=== PATIENT | female | born 1940 | race Caucasian/White ===

== ENCOUNTER 2016-12-25 10:04 | Inpatient (IN) | payer MEDICARE, OTHER ==
[2016-12-25] VITALS (8 sets, daily range): BP systolic 112–139; BP diastolic 56–74; PULSE 92–139; RESP 20–24; O2SAT 92–100
[~2016-12-25] VITALS: Ht 170.2 cm; Wt 57.2 kg
[2016-12-25] MEDS ORDERED: 0.9% Sodium Chloride 1,000 ML IV ONE ×2 (10:56→14:40)
--- NOTE | 2016-12-25 10:56 | ED.REPORT ---
HPI-General Illness Date of Service Dec 25, 2016 ED Provider: Brii Asencio MD 76 year old demented female with a history of type II diabetes and HTN presents to the ER accompanied by her complaining of six weeks of nausea and vomiting, with . She also reports 20 lb weight loss since symptom onset. Six weeks ago she was experiencing back problems related to a previous fall. At that time she was prescribed hydrocodone that elicited nausea and vomiting that has persisted even after ceasing this medication. In follow-up she was diagnosed with H pylori, and started on an antibiotic regimen. Today she began experiencing dizziness upon awakening. Patient denies SOB, and chest pain currently, though her reports that she awakens in the night complaining of epigastric pain. She is scheduled for an appointment with a GI specialist 3 days from now. Nursing Notes Stated Complaint: VOMITING/POSS REACTION TO MEDICATION Chief Complaint: General Complaint Nursing Notes Reviewed: Yes Allergies: Coded Allergies: Penicillins (Verified Allergy, Unknown, 12/25/16) Sulfa (Sulfonamide Antibiotics) (Verified Allergy, Unknown, 12/25/16) cefaclor (Verified Allergy, Unknown, 12/25/16) codeine (Verified Allergy, Unknown, 12/25/16) metronidazole (Verified Allergy, Unknown, 12/25/16) omeprazole (Verified Allergy, Unknown, 12/25/16) hydrocodone (Verified Adverse Reaction, Unknown, nausea, 12/25/16) Scheduled Aspirin Chew (Aspirin Chew) 81 Mg Chew 81 MG PO DAILY Levothyroxine (Levothyroxine) 50 Mcg Tablet 50 MCG PO DAILY Lisinopril (Lisinopril) 2.5 Mg Tablet 2.5 MG PO DAILY Pantoprazole DR (Pantoprazole DR) 40 Mg Tablet.dr 40 MG PO BID Ranitidine (Ranitidine) 150 Mg Capsule 150 MG PO HS Rivastigmine Patch (Exelon Patch) 4.6 Mg Patch 4.6 MG TRANSDERM DAILY Scheduled PRN Acetaminophen (Acetaminophen) 500 Mg Tablet 500-1,000 MG PO Q6H PRN PRN For Pain Tramadol (Tramadol) 50 Mg Tablet 50 MG PO Q6H PRN PRN For Pain General Time Seen by MD: 10:54 Chief Complaint Vomiting Hx Obtained From: Patient Arrived By: Walk-in Sudden in Onset?: No Onset Occurred: More than a week ago... (6 weeks) Symptom Duration: Since onset Associated with: Reports: Abdominal pain, Dizziness, Denies: Chest pain, Shortness of breath Past Medical History Past Medical History Reports: Diabetes mellitus (type 2), Hypertension Reports: Dementia, Thyroid disease Smoking History Unknown if Ever Smoker Social History Other Social History: Good social support, Ambulatory Status Independent Review of Systems Full Review of Systems Constitutional: Reports: Recent wt loss (20 lbs), Denies: Chills, Fever Respiratory: Denies: Non-productive cough, Shortness of breath Cardiovascular: Denies: Chest pain GI: Reports: Abdominal pain, Nausea, Vomiting, Denies: Diarrhea Neurologic: Reports: Dizziness Complete sys rev & neg: except as marked. Physical Exam Vital Signs Vital Signs Date Time Temp Pulse Resp B/P Pulse Ox O2 Delivery O2 Flow Rate FiO2 12/25/16 12:37 111 21 134/57 93 Room Air 12/25/16 10:28 36.6 139 24 130/74 100 Room Air Initial VS: Reviewed Head / Eyes: Atraumatic, Normocephalic Neck: Supple, Non-tender, Full range of motion Extremities: Vascular intact, Neuro intact, No swelling, No tenderness Skin: Warm, Dry, No cyanosis Neurologic: Alert, Oriented, Nonfocal General/Constitutional: Awake, Alert, Well developed, Well nourished Respiratory / Chest: Breath sounds NL, No respiratory distress, No rales, No rhonchi, No wheezing Cardiovascular: Regular rhythm, Heart sounds NL, Cap refill not delayed, Peripheral circulation NL Heart Rate / Rhythm: Positive: Tachycardia Abdomen: Soft, Non-tender, No guarding, No rebound, BS normoactive, No distention Interpretation & Diagnostics Lab Results Interpretation Result Diagram: 12/25/16 1102 12/25/16 1102 Test 12/25/16 11:02 12/25/16 11:05 White Blood Count 14.6th/mm3 (3.8-10.1) Red Blood Count 4.74mil/mm3 (3.90-5.20) Hemoglobin 15.2g/dL (12.0-15.6) Hematocrit 41.8% (35.0-46.0) Mean Corpuscular Volume 88.2fL (81-100) Mean Corpuscular Hemoglobin 32.1pg (27.0-35.0) Mean Corpuscular Hemoglobin Concent 36.4% (32.0-37.0) Red Cell Distribution Width 13.7% (12.3-15.4) Platelet Count 326bil/L (150-400) Neutrophils (%) (Auto) 86.8% (40-74) Lymphocytes (%) (Auto) 4.6% (14-46) Monocytes (%) (Auto) 8.1% (4-12) Eosinophils (%) (Auto) 0% (0-5) Basophils (%) (Auto) 0.2% (0-3) Sodium Level 123mEq/L (134-144) Potassium Level 2.2mEq/L (3.5-5.2) Chloride Level 66mEq/L (97-108) Carbon Dioxide Level 33mmol/L (18-29) Blood Urea Nitrogen 23mg/dL (8-27) Creatinine 0.77mg/dL (0.57-1.00) Estimat Glomerular Filtration Rate 104mL/min (>59) Glucose Level 159mg/dL (60-99) Calcium Level 10.0mg/dL (8.5-10.1) Magnesium Level 2.4mg/dL (1.6-2.6) Total Bilirubin 1.1mg/dL (0.0-1.2) Aspartate Amino Transf (AST/SGOT) 19U/L (0-50) Alanine Aminotransferase (ALT/SGPT) 20U/L (0-32) Alkaline Phosphatase 50U/L (25-165) Troponin T < 0.010ug/L (0.0-0.011) Total Protein 7.6g/dL (6.4-8.4) Albumin 4.9g/dL (3.4-5.0) Lipase 76U/L (13-60) Thyroid Stimulating Hormone (TSH) 2.540uIU/mL (0.450-4.500) Hold Lares Top Tube Received (Received) ECG Interpretation ECG Interpretation: Sinus tachycardia, rate 95 No significant ischemia Time: 11:32 Interpreted by: ED physician CT Abd / Pelvis Interpretation DATE: 11/08/2016 IMPRESSION: 1. Hepatic steatosis and hepatic cyst 2. Mild sigmoid diverticulosis 3. No acute changes 4. Results discussed with SONAM Ortega Study type: Abdominal CT IV contrast Interpretation / Wet Read by: Interpret - Radiologist Re-Eval/Medical Decision Med Decision/Clinical Course 76-year-old woman presents with 6 weeks of persistent vomiting apparently has lost 20 pounds. Was seen by her primary care doctor [address] scan was done of the abdomen that did not show any significant pathology at that point. She does not describe fevers or chills. She her abdomen is tender from vomiting only she does not have any urinary symptoms or is absolutely no suggestive that there is an infectious etiology to explain her symptoms. I do not believe that this is sepsis or SIRS. Labs show significant contraction alkalosis with severe hyponatremia and hypokalemia. She will be admitted with telemetry, potassium replacement and fluids. Further etiology for the persistent vomiting is still to be elucidated. Source of Hx: Old records Time of Eval: 14:23 Re-Evaluation/Progress Note: Discussed lab results and need for admission. Patient is amenable to the plan. Return precautions given. All other questions addressed. Consultation #1: Referral / Consult Name: Drew Hummel MD Consulted With: Hospitalist Call Returned at: 13:37 Decision Unit Rn: Agrees with eval, Agrees with plan, Accepts admit Consultation #2: Referral / Consult Name: Aria Powell MD Consulted With: On-call physician (GI) Call Returned at: 14:35 Note: Agrees to consult. Counseled Regarding: Diagnosis, Lab results, Need for admission Discharge & Departure Primary Impression: Nausea & vomiting Additional Impression: Dementia Disposition: ADMITTED TO HOSPITAL Discharge Condition All VS Reviewed: Yes Condition: Stable Referrals: Yaya Chavarria MD (PCP) Scribe Attestation Portions of this note were transcribed by Moi Liz. I, Dr. Asencio, personally performed the history, physical exam and medical decision-making; I reviewed and confirmed the accuracy of the information in the transcribed note. Signed by: Brennan Giron, 12/25/2016 at 14:36 copies to: Yaya Chavarria MD, Shawna L MD Dec 25, 2016 10:56 MOI LIZ Dec 25, 2016 10:59
[2016-12-25] MEDS ORDERED: Ondansetron 2 mg/mL 2 mL Inj IVPUSH ONE (11:00)
[2016-12-25 11:14] LABS: BASOPHILS % (AUTO) 0.2 % (0-3); EOSINOPHILS % (AUTO) 0 % (0-5); MONOCYTES % (AUTO) 8.1 % (4-12); Mean Corpuscular Hemoglobin 32.1 pg (27.0-35.0); Mean Corpuscular Volume 88.2 fL (81-100); NEUTROPHILS % (AUTO) 86.8 % (40-74); Platelet Count 326 bil/L (150-400)
[2016-12-25 11:33] LABS: Magnesium 2.4 mg/dL (1.6-2.6)
[2016-12-25 12:19] LABS: TROPONIN T < 0.010 ug/L (0.0-0.011)
[2016-12-25] MEDS ORDERED: KCl 40 mEq/D5W 500 mL 40 MEQ in IV Premix 1 EACH IV ONE ×2 (12:25→23:15)
[2016-12-25] MEDS ORDERED: Magnesium Sulf 4 Gm/100 mL H2O 4 GM in IV Premix 1 EACH IV ONE (13:45)
[2016-12-25] MEDS ORDERED: Ondansetron 2 mg/mL 2 mL Inj IVPUSH PRN (13:45)
[2016-12-25] MEDS ORDERED: Polyethylene Glycol (PEG) 17 Gm Powder PO PRN (13:45)
[2016-12-25] MEDS ORDERED: Alum-Mag Hydrox-Simeth 30 mL Suspension PO PRN (13:45)
[2016-12-25] MEDS ORDERED: TRAM50TA2 PO (14:41)
[2016-12-25] MEDS ORDERED: ASPI81TA3 PO (14:41)
[2016-12-25] MEDS ORDERED: LEVO50TA6 PO (14:41)
[2016-12-25] MEDS ORDERED: PANT40TA3 PO (14:41)
[2016-12-25] MEDS ORDERED: LISI2.5T PO (14:41)
[2016-12-25] MEDS ORDERED: SUCR1TAB PO (14:41)
[2016-12-25] MEDS ORDERED: RANI150C4 PO (14:41)
[2016-12-25] MEDS ORDERED: ACET-171 PO (14:41)
[2016-12-25] MEDS ORDERED: RIVA1PAT TRANSDERM (14:41)
[2016-12-25] MEDS: 0.9% Sodium Chloride 1,000 ML IV SCH ×2 (15:44→21:16)
--- NOTE | 2016-12-25 16:20 | PCM.HPMED ---
Subjective Date of Service Dec 25, 2016 Primary Provider: Admitting Physician: Drew Hummel MD Primary Care Physician: Yaya Chavarria MD Attending Physician: Drew Hummel MD Admit Status: From the Emergency Department, Admit to [facility] Team Chief Complaint: 76-year-old woman with a history of dementia and recent abdominal complaints presents with vomiting and disordered electrolytes History of Present Illness: The patient is alert and talkative but has moderate dementia and is unable to provide history. She was unable to identify a reason for coming to hospital today. Per emergency department history obtained from her , she has had severe nausea and vomiting over the past month. Today she experienced dizziness and was brought to hospital for evaluation. She was noted to have critical hypokalemia as well as severe hyponatremia, metabolic alkalosis and leukocytosis. Recent medical records indicates that she has had abdominal pain nausea and vomiting since late 10/2016. She also had fall with increased back pain treated initially with opioid analgesics during this time. Serum IgA antibody for H. pylori was positive at 10.0 (0-8.9). Unclear if there are any other studies performed but she initiated pantoprazole, doxycycline, metronidazole and bismuth. A GI consult was requested but is scheduled for several days from now. Review of Systems: Review of systems was attempted but her answers were vague and nonspecific. She denies pain or nausea at this time. Allergies Coded Allergies: Penicillins (Verified Allergy, Unknown, 12/25/16) Sulfa (Sulfonamide Antibiotics) (Verified Allergy, Unknown, 12/25/16) cefaclor (Verified Allergy, Unknown, 12/25/16) codeine (Verified Allergy, Unknown, 12/25/16) metronidazole (Verified Allergy, Unknown, 12/25/16) omeprazole (Verified Allergy, Unknown, 12/25/16) hydrocodone (Verified Adverse Reaction, Unknown, nausea, 12/25/16) Home Medications Per nurse's medication reconciliation: Acetaminophen, aspirin 81 mg, levothyroxine 50 g, lisinopril 2.5 mg, pantoprazole 40 mg twice a day, ranitidine 150 mg at bedtime Right astigmatism patch Tramadol 2 mg 4 times a day when necessary Primary care provider visit 4 days ago: Additional medications: Bismuth Doxycycline Metronidazole [facility] # Dementia # Hypothyroidism # Dyspepsia - H. pylori serologic positive; CT abdomen done 11/08/16 at [facility] reportedly with no pathology. # low vitamin D # hypertension Social History Hx Alcohol Use: Yes (Beer every day for dinner) Hx Substance Use: No Hx Tobacco Use: No Smoking Status: Unknown if Ever Smoker Living Arrangement: with Family () Exam Vital Signs Vital Sign - Last Date Time Temp Pulse Resp B/P Pulse Ox O2 Delivery O2 Flow Rate FiO2 12/25/16 15:52 113 12/25/16 15:27 37.1 24 112/64 95 Room Air Exam General: Healthy-appearing elderly woman in no acute distress HEENT: Mild proptosis, sclerae anicteric, oral mucosa moist Neck: no JVD Chest: Lungs clear to auscultation Cardiac: S1S2, no murmur, no gallop Abdomen: BS normal, non-tender, no HSM Extremities: No pitting edema Neuro: Alert and talkative but limited cognitive content, cranial nerves symmetric, motor strength 5/5, coordination normal finger to nose, reflexes 2+ right 3+ left, toes downgoing Lab and Diagnostics Labs Liver function tests normal, lipase 76 Troponin less than 0.01 TSH normal Result Diagram: 12/25/16 1102 12/25/16 1102 12-lead ECG 12/25/16 at 11:25 from multi focal atrial rhythm, [address] depressions V3-5, conduction intervals normal Assessment & Plan 76-year-old woman with dementia presents with several weeks of dyspepsia nausea and vomiting, with acutely worsened dizziness and electrolyte disorders. # Hypokalemia, acute. Present on admission. Severe, associated with atrial dysrhythmia. Likely secondary to contraction alkalosis. - Telemetry monitoring - BMP every 4 hours with IV potassium supplementation - IV normal saline # Hyponatremia, acute. Present on admission. Secondary to nausea and vomiting. - IV normal saline, adjust rate for patient's of sodium correction - Repeat BMP every 4 hours with maximum correction 8-10 mg/L over 24 hours. # Metabolic alkalosis, acute. - Fluid resuscitation # SIRS criteria, present on admission. Leukocytosis WBC 14.6; heart rate 139. No obvious source of infection. Possibly stress reaction. Heart rate may be secondary to atrial dysrhythmia from hypokalemia. Blood pressure is stable, antibiotics not indicated at present - Chest x-ray - Urinalysis # Dyspepsia, nausea and vomiting, chronic. Differential diagnosis is per GI versus medication intolerance (doxycycline, rivastigmine). Very minor lipase elevation seems clinically unimportant. - Antiemetics - Clear liquid diet advance as tolerated - Review [facility] from [facility] and consider further imaging is needed # Hyperglycemia, acute. No history of type II diabetes mellitus. - Check hemoglobin A1c CODE STATUS: Patient is not decisional and no family are present at this time. Venous thromboembolism prophylaxis with Lovenox Disposition: Patient is admitted with expectation of greater than 2 nights of inpatient therapy due to severe electrolyte derangement due to uncontrolled nausea and vomiting. GI Prophylaxis: Proton Pump Inhibitor VTE Prophylaxis: Sub-Q Enoxaparin Resuscitation Status: CPR: Attempt Resuscitation Time spent 60 minutes copies to: Yaya Chavarria MD, Jeffrey W MD Dec 25, 2016 16:20
[2016-12-25 16:35] LABS: APPEARANCE,URINE HAZY (CLEAR,HAZY); COLOR,URINE YELLOW (YELLOW); OCCULT BLOOD,URINE NEGATIVE (NEGATIVE)
[2016-12-25 16:37] LABS: UROBILINOGEN,URINE NORMAL (NORMAL)
[2016-12-25] MEDS: Pantoprazole 4 mg/mL 10 mL Inj IVPUSH SCH (17:33)
--- NOTE | 2016-12-25 19:46 | DRSVH ---
PROCEDURE: X-RAY CHEST ONE VIEW, PORTABLE ([id number]) INDICATIONS: SIRS positive TECHNIQUE: One view of the chest was acquired. COMPARISON: None. FINDINGS: Surgical changes and devices: None. Lungs and pleura: No pleural effusions or pneumothorax. There is an indistinct bandlike opacity per ipherally in the left lung base. Mild interstitial prominence is demonstrated which is likely chroni c. Mediastinum: Mediastinal contours appear normal. Heart size is normal. Bones and chest wall: No suspicious bony lesions. Overlying soft tissues appear unremarkable. IMPRESSION: 1. Indistinct bandlike opacity in the left lung apex may represent developing consolidation or atele ctasis. Dictated by: Roel Thompson M.D. on 12/25/2016 at 19:43 Approved by: Roel Thompson M.D. on 12/25/2016 at 19:45
[2016-12-25 21:15] LABS: TROPONIN T 0.01 ug/L (0.0-0.011)
--- NOTE | 2016-12-25 23:44 | CONS ---
[address] [address] CONSULTATION REPORT PATIENT: NEMESIO MCCONNELL : 1940 MR#: [id number] ADMIT: 12/25/2016 JOB ID: [id number] DATE OF SERVICE: PHYSICIAN REQUESTING CONSULTATION: Brii Asencio MD REASON FOR CONSULTATION: Nausea, vomiting. HISTORY OF PRESENT ILLNESS: The patient is a 76-year-old woman with a history of dementia, who states that she was apparently well up until about a month ago, when in [place] several days following a steroid injection into her back she developed epigastric pain associated with regurgitation, nausea and vomiting. At that time, she also had complaints of diarrhea. This subsequently resolved and diarrhea subsequently resolved. However, her upper GI complaints of nausea, vomiting, epigastric pain persisted. She was prescribed omeprazole, which she took not necessarily before meals, but any time she had symptoms. The also reports that she was tested for H. pylori and this was found to be positive so she was given metronidazole as well as doxycycline. She was, however, not able to tolerate the metronidazole and it was not until later that the patient's realized she was also drinking beer nightly and she likely had a drug reaction with the beer and metronidazole, however, she did not continue treatment for suspected H. pylori. She reports that H. pylori detected based on blood test and not upper endoscopy. As her symptoms persisted she saw her primary care provider, who then scheduled GI office visit, which was supposed to take place this , however, as she was symptomatic today with dizziness, severe nausea and vomiting, she came to the hospital where she was found to be hyponatremic with metabolic alkalosis and leukocytosis. The reports that since she has received IV fluids, her symptoms have improved and before dinner today she did eat solid foods which consisted of macaroni, mashed potatoes and salmon, which she tolerated. Upon my interview with her, she denies any current abdominal pain, any nausea or vomiting. She has no history of chronic NSAID use. She does drink alcohol daily, but not more than one beer every evening. Her does report in addition to the nausea and vomiting in the last month she has had an approximately 20 pound weight loss over the last three months. The patient does endorse early satiety as well, which she states has been present for some time. PAST MEDICAL HISTORY: Her past medical history is significant for dementia, hypothyroidism, dyspepsia, hypertension. MEDICATIONS: Her home medications include: 1. Acetaminophen. 2. Levothyroxine. 3. Lisinopril. 4. Pantoprazole 40 mg twice a day. 5. Ranitidine 50 mg at bedtime. 6. Tramadol. 7. Right astigmatism patch. 8. Four days ago she was given Bismuth, doxycycline, metronidazole as well. ALLERGIES: She has allergies to: 1. PENICILLIN. 2. SULFA. 3. CEFACLOR. 4. CODEINE. 5. Metronidazole is not actually thought to be an allergy but possibly a reaction with the alcohol that she drinks nightly. 6. OMEPRAZOLE. It is unknown what her reaction was. REVIEW OF SYSTEMS: As mentioned in the HPI, but otherwise unremarkable. PHYSICAL EXAMINATION: Her temperature is 37.1, her pulse is 110, blood pressure of 112/64, respiratory rate is 24, O2 saturation is 94% on room air. Generally, she is an elderly woman in no apparent distress who answers questions appropriately. HEENT: No pallor. No icterus. Oropharynx is clear. Chest exam: Clear to auscultation bilaterally. Cardiovascular exam: S1, S2 heard. Abdomen: Soft, nontender, nondistended, without hepatosplenomegaly. Extremities with some trace edema. LABORATORY DATA: Shows a white blood cell count of 14.6, hemoglobin of 15.2, hematocrit of 41.8, platelet count of 326, neutrophils 86%, lymphocytes of 4.6%. Sodium at admission was 125, potassium 2.6, chloride of 75, CO2 37, BUN of 18, creatinine 0.6, glucose of 155. Her LFTs were normal. Her lipase was minimally elevated at 76. Her TSH was 2.40. Chest x-ray on admission showed indistinct bandlike opacity in the left lung apex. There is note made of a CT of the abdomen and pelvis that was done November 08, 2016, at [facility], which reportedly is normal as per the emergency department team. I, however, have not been able to access this report or review the images. I will, however, attempt to obtain this report from [facility]. ASSESSMENT AND PLAN: A 76-year-old woman presenting with nausea and vomiting with associated hypokalemia, hyponatremia and metabolic alkalosis. I did discuss with family regarding pursuing upper endoscopy to evaluate her nausea and vomiting. In addition, would recommend an ultrasound of the abdomen to rule out any biliary pathology. In the meantime, would continue proton pump inhibitor, continue IV hydration, and continue to follow clinically. If she should start having diarrhea again would recommend checking stool studies. Patient, however, reports that for the last two days she has had no further diarrhea. Thank you for allowing me to participate in the patient's care. If you have any further questions, please do not hesitate to contact me.
[2016-12-26] VITALS (12 sets, daily range): BP systolic 120–146; BP diastolic 72–93; PULSE 88–105; RESP 14–24; O2SAT 92–99
[2016-12-26 04:37] LABS: Mean Corpuscular Hemoglobin 31.9 pg (27.0-35.0); Mean Corpuscular Volume 90.7 fL (81-100)
[2016-12-26] MEDS: 0.9% Sodium Chloride 1,000 ML IV SCH ×2 (05:22→14:46)
[2016-12-26] MEDS: Pantoprazole 4 mg/mL 10 mL Inj IVPUSH SCH ×2 (07:30→16:41)
[2016-12-26] MEDS ORDERED: Potassium Chloride Oral 20 mEq SR Tab(K 3 - 3.7 & Creat < 2) PO ONE (09:05)
--- NOTE | 2016-12-26 10:11 | DRSVH ---
PROCEDURE: US ABDOMEN INDICATIONS: nausea and vomiting and abdominal pain TECHNIQUE: Real-time scanning was performed of the abdominal and retroperitoneal organs, with image documentatio n. COMPARISON: None. FINDINGS: Liver length: 13.42 cm Gallbladder Wall Thickness: 2.50 mm CBD: 3.80 mm Spleen length: 11.50 cm Right kidney length: 10.34 cm Left kidney length: 10.13 cm Aorta(Proximal): 1.92 cm Aorta(Mid): 1.67 cm Aorta(Distal): 1.34 cm Liver: The liver demonstrates normal size. The liver demonstrates generalized increased echogenicity . This decreases ultrasound sensitivity for detection of hepatic masses. Gallbladder: No findings of gallstones or sludge are seen. The gallbladder wall is not thickened, m easuring 3 mm or less. No specific pericholecystic fluid is seen. The sonographic Yeager sign is ne gative. Biliary ducts: Intrahepatic bile ducts are non-dilated. Extrahepatic bile duct caliber is normal. Normal is 6-7 mm or less in diameter, or 10 mm or less post-cholecystectomy. Pancreas: Visualized portions of the pancreas are sonographically normal. Spleen: Spleen is normal in size and homogeneous in echotexture. Kidneys: Kidneys are normal in size and echotexture. No hydronephrosis or nephrolithiasis. No piedad d masses. Mild thinning of the left renal cortex can be seen. Aorta: Visualized aorta is normal in caliber at less than 3 cm. Iliacs: Not seen, obscured by overlying bowel gas. IVC: Intrahepatic inferior vena cava is patent. Miscellaneous: No free abdominal fluid. IMPRESSION: The gallbladder demonstrates a normal sonographic appearance. No biliary dilatation is s een. The liver demonstrates increased echogenicity. This finding is nonspecific, yet it is most commonly attributed to fatty infiltration. Dictated by: Shan Jackson M.D. on 12/26/2016 at 9:08 Approved by: Shan Jackson M.D. on 12/26/2016 at 9:10
[2016-12-26] MEDS ORDERED: Promethazine 12.5 mg Rectal Suppository RECTAL ONE (10:25)
--- NOTE | 2016-12-26 10:57 | PCM.HPANE ---
Patient Data Surgeon Admitting Provider:Drew Hummel MD Attending Provider:Drew Hummel MD Primary Care Physician:Yaya Chavarria MD Other Provider: Reason for Visit Low Sodium, Low Potassium, Presistent Vomiting Ht/WT & BMI Height (Feet): 5 Height (Inches): 7.00 Weight (Kilograms): 54.000 Body Mass Index 18.69 Allergies Coded Allergies: Penicillins (Verified Allergy, Unknown, 12/25/16) Sulfa (Sulfonamide Antibiotics) (Verified Allergy, Unknown, 12/25/16) cefaclor (Verified Allergy, Unknown, 12/25/16) codeine (Verified Allergy, Unknown, 12/25/16) metronidazole (Verified Allergy, Unknown, 12/25/16) omeprazole (Verified Allergy, Unknown, 12/25/16) hydrocodone (Verified Adverse Reaction, Unknown, nausea, 12/25/16) Past Anesthesia History Anesthesia History: Denies:: Abnormal Airway, Difficult Intubation Diabetes History Hx Diabetes?: No MRSA MRSA: No Medications Reported Medications Acetaminophen 500 Mg [id number],000 Mg PO Q6H PRN For Pain 12/25/16 Tramadol 50 Mg Inswws55 Mg PO Q6H PRN For Pain 12/25/16 Rivastigmine Patch (Exelon Patch)4.6 Mg Patch4.6 Mg TRANSDERM DAILY 12/25/16 Ranitidine 150 Mg [id number] Mg PO HS 12/25/[address] 40 Mg Tablet.dr40 Mg PO BID 12/25/16 Lisinopril 2.5 Mg Tablet2.5 Mg PO DAILY 12/25/16 Levothyroxine 50 Mcg Nangam72 Mcg PO DAILY 12/25/16 Aspirin Chew 81 Mg Chew81 Mg PO DAILY 12/25/16 Discontinued Reported Medications Sucralfate 1 Gm Tablet1 Gm PO QID Take 1 tablet 1 hour before meals and bedtime 12/25/16 History History of ENT Problems?: No HEENT History: Denies:: Abnormal Airway Cataracts Difficult Intubation Dysphagia Glaucoma Hearing Problem Sinus Problem TMJ Denture Type: None Teeth Condition: Within Normal Limits Hx of Heart Problems?: Yes Cardiovascular History: Positive for:: Peripheral Vascular Denies:: Congestive Heart Failure Hypertension Valvular Heart Disease Hx of Respiratory Problem?: No Respiratory History: Denies:: Asthma COPD Chest Surgery Cough Dyspnea Emphysema Hemoptysis Oxygen Administration Pneumonia Pulmonary Embolism Tuberculosis Use of C-PAP Machine Use of Inhalers / NEBS Hx Neurologic Problems?: Yes Neurological History: Positive for:: Dementia Denies:: CVA Other Neurological Pertinent: dementia Hx of GI Problems?: No Other GI Pertinent History: recent nausea and vomiting in past 6 weeks Hx of Problems?: No Female Hx: Denies:: Currently Hx Musculoskeletal Problems?: No Hx of Psycho/Social Problems?: No Hx Surgeries?: No Hx Any Other Health Problems?: No History Blood Transfusions: Positive for:: Accept Blood Products? Denies:: Blood Transfusions Hx Diabetes: No Hx Alcohol Use: Yes (Beer every day for dinner)Hx Substance Use: No Smoking Status: Unknown if Ever Smoker Have You Smoked inLast 12 mo: No Stop/Bang Treated for Sleep Apnea?: No Do You Have a CPAP Machine?: No S-Snoring: Do You Snore Loudly: No T-Tired: feel tired, fatigued: No O-Obsered: Observed not breath: No P-Blood Pressure: treated: Yes B- Body Mass Index > 35 kg/m2: No A- Age over 50: Yes N- Neck Large Circumference: No G- Gender Male: No JEANNIE Total Score: 1 JEANNIE Risk Assessment: Low Risk, <3 Yes Risk Assessment Category Category 1A: Patient has history of documented sleep apnea, and HAS NOT received any narcotic, sedative or anesthesia administration during this stay. Category 1B: Patient has history of documented sleep apnea, and HAS received any narcotic , sedative or anesthesia administration during this stay Category 2: Patient has SUSPECTED Obstructive Sleep Apnea, and HAS received any narcotic , sedative or anesthesia administration during this stay. Category 3: Patient has SUSPECTED Obstructive Sleep Apnea and HAS NOT received narcotic, sedative or anesthesia administration during this stay. Category 4: Outpatient in Procedural Areas with known sleep apnea or who screen positive for High Risk via the STOP/BANG questionnaire. Exam Exam Vital Signs Vital Signs Date Time Temp Pulse Resp B/P Pulse Ox O2 Delivery O2 Flow Rate FiO2 12/26/16 10:43 100 12/26/16 09:22 36.6 101 16 131/78 95 Room Air 12/26/16 04:25 37.0 101 24 120/75 92 Room Air General Appearance: Alert, Oriented X3, Cooperative, No Acute Distress HEENT/AIRWAY: MP 2 Lungs: Clear to Auscultation, Normal Air Movement Heart: Exam Unremarkable, Regular Rate/Rhythm, No Murmurs/Rubs/Gallops Meds/Labs/Diagnostics Admission Meds Current Medications Ondansetron HCl 8 mg 8 mg ONCE ONCE IVPUSH Last administered on 12/25/16 11: 32; Start 12/25/16 at 11:00; Stop 12/25/16 at 11:01; Status DC Potassium Chloride In D5W 40 meq/Premix 500 ml @ 125 mls/hr Q4H ONCE IV Last administered on 12/25/16 13:10; Start 12/25/16 at 12:25; Stop 12/25/16 at 16:24 ; Status DC Sodium Chloride 1,000 ml @ 80 mls/hr [id number] IV Last administered on 05:22; Start 12/25/16 at 13:43 Potassium Chloride/Dextrose/ Water (Potassium Chloride Inj/D5W) 520 ml @ 130 mls/hr Q4H IV Last administered on 12/25/16 17:24; Start 12/25/16 at 13:45; Stop 12/25/16 at 21:44; Status DC Pantoprazole 40 mg 40 mg BIDAC IVPUSH Last administered on 12/25/16 17:33; Start 12/25/16 at 17:30 Potassium Chloride In D5W/ Premix (Potassium Chloride 40 mEq/ D5W 500 mL/IV Premix) 500 ml @ 125 mls/hr Q4H ONCE IV Last administered on 12/25/16 23:29; Start 12/25/16 at 23:15; Stop 12/26/16 at 03:14; Status DC Labs Test 12/25/16 11:02 12/25/16 11:05 12/25/16 16:00 12/25/16 20:17 Neutrophils (%) (Auto) 86.8% (40-74) Lymphocytes (%) (Auto) 4.6% (14-46) Monocytes (%) (Auto) 8.1% (4-12) Eosinophils (%) (Auto) 0% (0-5) Basophils (%) (Auto) 0.2% (0-3) Magnesium Level 2.4mg/dL (1.6-2.6) Total Bilirubin 1.1mg/dL (0.0-1.2) Aspartate Amino Transf (AST/SGOT) 19U/L (0-50) Alanine Aminotransferase (ALT/SGPT) 20U/L (0-32) Alkaline Phosphatase 50U/L (25-165) Total Protein 7.6g/dL (6.4-8.4) Albumin 4.9g/dL (3.4-5.0) Lipase 76U/L (13-60) Thyroid Stimulating Hormone (TSH) 2.540uIU/mL (0.450-4.500) Lactic Acid Level 1.6mmol/L (0.4-2.0) Hold Lares Top Tube Received (Received) Urine Color Yellow (YELLOW) Urine Appearance Hazy (CLEAR,HAZY) Urine pH 7.0 (5.0-8.0) Urine Specific [place] 1.010 (1.003-1.035) Urine Protein Negativemg/dL (NEG,TRACE) Urine Glucose (UA) Negativemg/dL (NEGATIVE) Urine Ketones 80mg/dL (NEGATIVE) Urine Occult Blood Negative (NEGATIVE) Urine Nitrite Negative (NEGATIVE) Urine Bilirubin Negative (NEGATIVE) Urine Urobilinogen Normalmg/dL (NORMAL) Urine Leukocyte Esterase Moderate (NEGATIVE) Urine RBC 0-2/hpf (0-2) Urine WBC 6-10/hpf (0-5) Urine Epithelial Cells Many/hpf (NONE-MOD) Urine Crystals None seen (NONE SEEN) Urine Bacteria Moderate/hpf (NONE-FEW) Urine Hyaline Casts None/lpf (NONE) Urine Granular Casts None seen (NONE SEEN) Urine Waxy Casts None seen (NONE SEEN) Urine Red Blood Cell Casts None seen (NONE SEEN) Urine White Blood Cell Casts None seen (NONE SEEN) Urine Mucus None seen (None Seen) Urine Trichomonas None seen (NONE SEEN) Urine Yeast None (NONE SEEN) Urinalysis Comment None Urine Culture Reflexed Indicated Troponin T 0.010ug/L (0.0-0.011) Test 12/26/16 04:24 White Blood Count 9.4th/mm3 (3.8-10.1) Red Blood Count 3.89mil/mm3 (3.90-5.20) Hemoglobin 12.4g/dL (12.0-15.6) Hematocrit 35.3% (35.0-46.0) Mean Corpuscular Volume 90.7fL (81-100) Mean Corpuscular Hemoglobin 31.9pg (27.0-35.0) Mean Corpuscular Hemoglobin Concent 35.1% (32.0-37.0) Red Cell Distribution Width 13.6% (12.3-15.4) Platelet Count 246bil/L (150-400) Sodium Level 131mEq/L (134-144) Potassium Level 3.7mEq/L (3.5-5.2) Chloride Level 92mEq/L (97-108) Carbon Dioxide Level 29mmol/L (18-29) Blood Urea Nitrogen 8mg/dL (8-27) Creatinine 0.45mg/dL (0.57-1.00) Estimat Glomerular Filtration Rate 194mL/min (>59) Glucose Level 122mg/dL (60-99) Calcium Level 8.3mg/dL (8.5-10.1) Procalcitonin 0.10ng/mL (0.00-0.08) Plan Impression Patient chart reviewed, patient interviewed and anesthestic plan with risks, benefits, and alternatives discussed, and informed consent obtained. ASA Physical Status: ASA3 Severe Disease Anesthetic Plan: MAC Bene/Risks/Altern/Consents: Yes HP Complete Prior to Induction: Yes Destinee Faria MD Dec 26, 2016 10:57
[2016-12-26] MEDS ORDERED: Lactated Ringer's 1,000 ML IV SCH (11:39)
[2016-12-26] MEDS ORDERED: Lactated Ringer's 1,000 ML IV ONE (11:39)
--- NOTE | 2016-12-26 11:39 | PCM.ANEP1 ---
Post Anesthesia Phase 1 PACU Phase 1 Assessment Vital Signs Vital Signs Date Time Temp Pulse Resp B/P Pulse Ox O2 Delivery O2 Flow Rate FiO2 12/26/16 10:57 36.7 105 15 136/88 96 Room Air 12/26/16 10:43 100 12/26/16 09:22 36.6 101 16 131/78 95 Room Air 12/26/16 04:25 37.0 101 24 120/75 92 Room Air Anesthetic Administered: MAC Level of Alertness: Awake, talking ROGERS's with Equal Strength: Yes Pain: No Nausea or Vomiting: No Cardiovascular Function and Hy: Yes Lungs: Clear to Auscultation, Normal Air Movement Destinee Faria MD Dec 26, 2016 11:39
[2016-12-26] MEDS ORDERED: MetoCLOpramide 5 mg/mL 2 mL Inj IVPUSH PRN (11:40)
[2016-12-26] MEDS ORDERED: Diphen-Lido-Mylanta 1:1:1 Susp 15 mL Syringe PO ONE (14:05)
[2016-12-26] MEDS ORDERED: KCl 40 mEq/D5W 500 mL 40 MEQ in IV Premix 1 EACH IV ONE (14:10)
--- NOTE | 2016-12-26 16:59 | PCM.PNMED ---
Subjective Date of Service Dec 26, 2016 Subjective 76-year-old woman with a history of dementia and recent abdominal complaints presents with vomiting and disordered electrolytes. Patient has been very alert showing signs of mild cognitive impairment today. Nausea and vomiting improved with nothing by mouth status. Exam Vital Signs Vital Sign - Last Date Time Temp Pulse Resp B/P Pulse Ox O2 Delivery O2 Flow Rate FiO2 12/26/16 13:16 37.4 92 17 134/73 98 Room Air Intake and Output 12/25/16 12/25/16 12/26/16 Cumulative From/Thru 15:00 23:00 07:00 12/25/16 10:28 - 12/26/16 05:14 Intake Total 1000 ml 400 ml 400 ml 1800 ml Output Total 925 ml 3300 ml 4225 ml Balance 1000 ml -525 ml -2900 ml -2425 ml Intake Oral 100 ml 400 ml 500 ml IV Total 1000 ml 300 ml 1300 ml Output Urine Total 925 ml 3300 ml 4225 ml # Voids 1 1 # Bowel Movements 0 0 Exam General: Healthy-appearing elderly woman in no acute distress, except discomfort with NG tube HEENT: sclerae anicteric, oral mucosa moist Neck: no JVD Chest: clear to auscultation Cardiac: S1S2, no murmur Abdomen: BS normal, non-tender Extremities: No pedal edema Neuro: Alert, communicative, shows some mastery of details, cranial nerves symmetric, motor strength 5/5, coordination normal IVs and Medications Medications Reviewed: Medications were reviewed in detail Lab and Diagnostics Result Diagram: 12/26/16 0424 12/26/16 0424 X-Rays, CTs and MRIs PROCEDURE: X-RAY CHEST ONE VIEW, PORTABLE ([id number]) IMPRESSION: 1. Indistinct bandlike opacity in the left lung apex may represent developing consolidation or atelectasis. Dictated by: Roel Thompson M.D. on 12/25/2016 at 19:43 . 12-lead ECG 12/25/16 at 11:25 from multi focal atrial rhythm, [address] depressions V3-5, conduction intervals normal Assessment & Plan 76-year-old woman with dementia presents with several weeks of dyspepsia nausea and vomiting, with acutely worsened dizziness and electrolyte disorders. Active problems: # Dyspepsia, nausea and vomiting, chronic. Underwent endoscopy on 12/26 revealing high-grade pyloric stenosis. - Antiemetics as needed - Nothing by mouth - NG tube to low suction; okay for Magic mouthwash when necessary for throat comfort - Gen. surgery consult - GI service is following # Hyponatremia, acute. Present on admission. Secondary to nausea and vomiting. - IV normal saline, adjust rate for patient's of sodium correction - Discontinue BMP every 4 hours - Resolving with maximum correction 8-10 mg/L over 24 hours. # Acute kidney injury, present on admission. Serum creatinine on admission 0.77 , declined to 0.45. Secondary to dehydration from emesis. - Follow BMP Resolving, stable and/or chronic problems: # Hypokalemia, acute. Present on admission. Severe, associated with atrial dysrhythmia. Likely secondary to contraction alkalosis. - Resolved # Metabolic alkalosis, acute. - Resolved # SIRS criteria, present on admission. Leukocytosis WBC 14.6; heart rate 139. No obvious source of infection. Possibly stress reaction. Heart rate may be secondary to atrial dysrhythmia from hypokalemia. Blood pressure is stable, antibiotics not indicated at present. No clinical symptoms of infection. Chest x-ray - with ambiguous findings. Urinalysis was contaminated specimen - Follow clinically # Hyperglycemia, acute. No history of type II diabetes mellitus. - Check hemoglobin A1c CODE STATUS: Patient is not decisional and no family are present at this time. Venous thromboembolism prophylaxis with Lovenox Disposition: Patient is admitted with expectation of greater than 2 nights of inpatient therapy due to severe electrolyte derangement due to uncontrolled nausea and vomiting. GI Prophylaxis: Proton Pump Inhibitor VTE Prophylaxis: Sub-Q Enoxaparin Resuscitation Status: CPR: Attempt Resuscitation Time spent 35 minutes. Patient assessment care coordination and counseling family bedside. Drew Hummel MD Dec 26, 2016 16:59
[2016-12-26] MEDS ORDERED: D5 0.45% NaCl + KCl 40 mEq/L 1,000 ML IV SCH (18:45)
[2016-12-26] MEDS ORDERED: D5 0.9% NaCl + KCl 20 mEq/L 1,000 ML IV SCH (18:45)
[2016-12-26] MEDS: Dextrose 5% Lactated Ringer's 1,000 ML IV SCH (20:24)
--- NOTE | 2016-12-26 20:29 | ENDO ---
[address] [address] ENDOSCOPY PROCEDURE PATIENT: NEMESIO MCCONNELL : 1940 MR#: [id number] ADMIT: 12/25/2016 JOB ID: [id number] INDICATION: Nausea, vomiting. Patient's ASA classification, Mallampati score, and medications as per anesthesia report. INSTRUMENT USED: GIF H 180 J. PROCEDURE DETAILS: After informed consent was obtained, the patient was brought into the GI suite, where she was placed on oxygen via nasal cannula and monitored with continuous pulse oximeter, telemetry, and blood pressure monitoring. A time-out was performed. Then, she was placed in the left lateral decubitus position and medications were administered for sedation. A bite block was placed. Medications were then administered for sedation. The standard EGD scope was then inserted through the bite block and advanced through the bite block into the distal esophagus where we encountered refluxing gastric contents. This was suctioned and then we advanced the scope into the proximal gastric body where we encountered a large amount of fluid as well as semi-solid food debris. We then suctioned approximately 1 L of liquid from the stomach. Following this, we were then able to see the antrum and we advanced the scope into the antrum and then into the duodenal bulb. Once we were in the duodenal bulb, I was unable to identify any distal lumen to intubate. There was a scar at the expected site of the lumen. We did attempt to, with gentle pressure, advance the scope through this area; however, we met resistance. At this point, the scope was then withdrawn. Retroflexion was then performed in the gastric body which revealed large amounts of liquid and semi-solid food debris in the proximal gastric body and, therefore, our views of the fundus and cardia were obscured. At this point, the scope was then withdrawn and then a nasogastric tube was placed for gastric decompression. 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 RECOMMENDATIONS: 1. CT scan of the abdomen and pelvis. 2. Surgical consultation. 3. Consider starting TPN until plans for surgery can be made. COMPLICATIONS: None. ESTIMATED BLOOD LOSS: Zero.
--- NOTE | 2016-12-26 21:24 | DRSVH ---
PROCEDURE: CT ABDOMEN WITH CONTRAST ([id number]) INDICATIONS: duodenal obstruction TECHNIQUE: After the administration of oral and intravenous contrast, 5 mm thick sections acquired from the diap hragms to the iliac crests. 5 mm thick coronal and sagittal reformats were acquired. For radiation dose reduction, the following was used: automated exposure control, adjustment of mA and/or kV accor ding to patient size. COMPARISON: None. FINDINGS: Image quality: Excellent. Lung bases: Lung bases are clear. Heart size is normal. Solid organs: Right hepatic lobe cysts are present. Liver demonstrates diffusely decreased density. Liver and spleen are otherwise normal in size and enhancement. Gallbladder is within normal limits. Biliary system is non dilated. Pancreas enhances normally. No adrenal nodules. Kidneys are normal in size, without hydronephrosis. Peritoneum and bowel: Moderate to severe distention of the stomach is present. The duodenum is decomp ressed. Small bowel is within normal limits as visualized. Visualized colon is normal in caliber. No free fluid or air. Nodes and vessels: No retroperitoneal or mesenteric adenopathy by size criteria. Aorta and inferior vena cava are normal in size. 11 mm diameter peripherally calcified focus at the splenic hilum is p resent. Bones: No suspicious bony lesions. No vertebral body compression fractures. Miscellaneous: No ventral hernias. IMPRESSION: 1. Distended gastric lumen, consistent with the given history of duodenal obstruction. 2. Hepatic steatosis. 3. 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 Dictated by: Amrik Mancera M.D. on 12/26/2016 at 21:20 Approved by: Amrik Mancera M.D. on 12/26/2016 at 21:23
[2016-12-26] MEDS ORDERED: KCl 40 mEq/500 mL D5W(K 3 - 3.7 & Creat < 2) IV ONE (22:05)
[2016-12-27] VITALS (8 sets, daily range): BP systolic 127–147; BP diastolic 77–84; PULSE 86–110; RESP 16–18; O2SAT 94–98
--- NOTE | 2016-12-27 01:02 | CONS ---
[address] [address] CONSULTATION REPORT PATIENT: NEMESIO MCCONNELL : 1940 MR#: [id number] ADMIT: 12/25/2016 JOB ID: [id number] DATE OF SERVICE: 12/26/2016 CHIEF COMPLAINT: Duodenal stricture. This consultation is requested by Dr. Hummel of the hospitalist service. HISTORY OF PRESENT ILLNESS: This is a 76-year-old woman who presented to the hospital yesterday with abdominal pain, nausea, and vomiting, which has been slowly progressive over the past two months. The patient reports a several year history of dyspepsia and the need to change her diet; however, over the last two months, she has been increasingly losing weight. She began to experience dizziness and was brought to the hospital and was found to have hypokalemia, hyponatremia, metabolic alkalosis, and leukocytosis. A CT scan of the abdomen was performed revealing a distended gastric lumen and a decompressed duodenum. An upper endoscopy was then performed showing a severely narrowed duodenum beyond the bulb, such that the endoscope could not be passed. The findings were reportedly benign in appearance. She has a history of recent issues with her hips and has been taking NSAIDs as well as aspirin, although the quantity and frequency are currently unknown. PAST MEDICAL HISTORY: 1. Dementia. 2. Hypothyroidism. 3. Hypertension. 4. Dyspepsia: H. pylori positive. 5. Low vitamin D. PAST SURGICAL HISTORY: None. MEDICATIONS: 1. Acetaminophen. 2. Levothyroxine. 3. Lisinopril. 4. Pantoprazole. 5. Ranitidine. 6. Tramadol. 7. Right astigmatism patch. 8. Four days ago, she was given bismuth, doxycycline, metronidazole. ALLERGIES: PENICILLIN, SULFA, CEFACLOR, CODEINE, OMEPRAZOLE. She had a reaction taking METRONIDAZOLE when it was mixed with alcohol which she drinks nightly. SOCIAL HISTORY: No tobacco. Two alcoholic beverages per night. She lives on [facility] with her , and in [place] near her daughter for three months of the year. FAMILY HISTORY: There is a family history of neurofibromatosis. REVIEW OF SYSTEMS: Eleven point review of systems could not be obtained secondary to the patient's dementia. PHYSICAL EXAMINATION: Temperature 36.9, heart rate 104, blood pressure 134/80, respiratory rate of 16, saturation 97% on room air. General: Asleep, somewhat confused, in no acute distress. Head: Normocephalic. NG tube is in place. Neck: Supple. Cardiac: Regular rate and rhythm. No murmurs, rubs, or gallops. Respiratory: Clear to auscultation bilaterally at the apices. Abdomen: Soft, mildly distended, nontender. Extremities: No edema. Psychiatric: Mild confusion. Neurologic: A full neurologic examination could not be tested secondary to dementia. LABS: White blood cell count currently is 9.4. It was 14.6 on admission. Hematocrit 35. Platelets 346. Comprehensive metabolic panel yesterday revealed normal LFTs, lipase of 76, sodium 123, potassium 2.2, creatinine 0.77. Today, her sodium is 131, potassium 3.4, creatinine is 0.45. IMAGING: CT scan images are personally reviewed and show a very distended stomach with decompression of the duodenum. Abdominal ultrasound was performed and shows a normal gallbladder and biliary tree. Report from upper endoscopy is reviewed showing no sign of lumen distal to the duodenal bulb. The stomach was very distended and approximately 1 L of fluid was suctioned from it. ASSESSMENT: A 76-year-old woman with a duodenal stricture at approximately the level of D2. RECOMMENDATIONS: 1. I agree with institution of TPN. 2. Images and endoscopy findings will be carefully reviewed with the radiologist and endoscopist tomorrow. If there is no sign of malignancy, surgical intervention with bypass of the strictured portion of duodenum may be indicated.
[2016-12-27 03:31] LABS: BASOPHILS % (AUTO) 0.7 % (0-3); EOSINOPHILS % (AUTO) 2.2 % (0-5); MONOCYTES % (AUTO) 10.3 % (4-12); Mean Corpuscular Hemoglobin 31.9 pg (27.0-35.0); Mean Corpuscular Volume 93.3 fL (81-100); NEUTROPHILS % (AUTO) 73.7 % (40-74); Platelet Count 253 bil/L (150-400)
[2016-12-27 03:55] LABS: INR 1.01 ratio
[2016-12-27] MEDS: Dextrose 5% Lactated Ringer's 1,000 ML IV SCH ×3 (04:45→23:52)
[2016-12-27] MEDS: Pantoprazole 4 mg/mL 10 mL Inj IVPUSH SCH ×2 (08:47→17:06)
[2016-12-27 10:41] LABS: Magnesium 2.2 mg/dL (1.6-2.6); Phosphorus 2.5 mg/dL (2.5-4.9)
--- NOTE | 2016-12-27 10:41 | PCM.PHAPRO ---
Progress TPN TPN DAY #1 Indication: Duodenal stricture I. Fluid status/VS II. Chemistry III. Glucose IV. Substrate PARENTERAL NUTRITION ORDERS 1 27-Dec-16 Standard Hang Time: 2100 Substrates Total kcal: 835 AMINO ACIDS 40 g DEXTROSE 125 g Total Volume (mL): 1750 LIPIDS 25 g Sterile Water for Injection QS mL To Infuse Over (hrs): 24 Total Volume 1750 mL At at a rate of (mL/hr): 73 Additives Sodium Chloride 60 mEq "typical" daily requirements Sodium Acetate 30 mEq Sodium 50-120mEq Potassium Chloride 40 mEq Potassium 60-120mEq Potassium Phosphate 30 mEq Phosphate 20-40mEq Calcium Gluconate 9 mEq Magnesium 8-32mEq Magnesium Sulfate 12 mEq Calcium 9-22mEq Acetate* 80-120mEq Chloride* 80-120mEq Regular Insulin 5 units *Depending on acid-base status Famotidine mg Multivitamins 1 std dose Insulin Regimen Trace Elements 1 std dose none Thiamine mg Regular Low Intensity Subcut x Folic Acid mg Regular Medium Intensity Subcut Ascorbic Acid mg Regular High Intensity Subcut Regular Insulin Infusion Other: Special Instructions: To be infused via central line only. Giacomo Wooten Pharm D Dec 27, 2016 10:41
[2016-12-27] MEDS ORDERED: Sodium Chloride LOK Flush 10 mL Syringe IVFLUSH PRN ×2 (11:10)
--- NOTE | 2016-12-27 11:27 | PCM.PNMED ---
Subjective Date of Service Dec 27, 2016 Subjective Some abdominal fullness. Minimal pain. No chest pain cough or shortness of breath. No nausea. No emesis. She is tolerating her NG tube. Exam Vital Signs Vital Sign - Last Date Time Temp Pulse Resp B/P Pulse Ox O2 Delivery O2 Flow Rate FiO2 12/27/16 10:34 92 12/27/16 08:31 36.5 17 147/84 97 Room Air Intake and Output 12/26/16 12/26/16 12/27/16 Cumulative From/Thru 15:00 23:00 07:00 12/25/16 10:28 - 12/27/16 05:57 Intake Total 200 ml 772 ml 1028 ml 3800 ml Output Total 175 ml 2200 ml 6600 ml Balance 200 ml 597 ml -1172 ml -2800 ml Intake Oral 500 ml IV Total 200 ml 772 ml 1028 ml 3300 ml Output Urine Total 1500 ml 5725 ml Gastric Drainage Total 175 ml 700 ml 875 ml # Voids 3 4 # Bowel Movements 0 0 Exam Alert and oriented -3, no distress. Fluent speech Anicteric sclera. Lungs are clear with normal rate and effort Heart is irregular without murmur gallop or rub Abdomen soft nontender, flat. Nasogastric tube in place. Extremities are free of edema. Skin is free of rash or lesions. IVs and Medications Medications Reviewed: Medications were reviewed in detail Lab and Diagnostics Result Diagram: 12/27/16 0301 12/27/16 0810 X-Rays, CTs and MRIs PROCEDURE: X-RAY CHEST ONE VIEW, PORTABLE ([id number]) IMPRESSION: 1. Indistinct bandlike opacity in the left lung apex may represent developing consolidation or atelectasis. Dictated by: Roel Thompson M.D. on 12/25/2016 at 19:43 . 12-lead ECG 12/25/16 at 11:25 from multi focal atrial rhythm, [address] depressions V3-5, conduction intervals normal Assessment & Plan 76-year-old woman with dementia presents with several weeks of dyspepsia nausea and vomiting, with acutely worsened dizziness and electrolyte disorders. Active problems: # Dyspepsia, nausea and vomiting, chronic. 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 - Antiemetics as needed - Nothing by mouth - NG tube to low suction; okay for Magic mouthwash when necessary for throat comfort - Gen. surgery consult. - GI service is following Surgeries were more imaging studies today, they will be discussing the potential bypass of her stenosis with a gastric jejunostomy versus other approaches. # Hypovolemic Hyponatremia, acute. Present on admission, improving. Secondary to nausea and vomiting. - IV normal saline, adjust rate for patient's of sodium correction - Discontinue BMP every 4 hours - Resolving with maximum correction 8-10 mg/L over 24 hours. # Acute kidney injury, present on admission, improving. Serum creatinine on admission 0.77, declined to 0.45. Secondary to dehydration from emesis. - Follow BMP Resolving, stable and/or chronic problems: # Hypokalemia, acute. Present on admission. Severe, associated with atrial dysrhythmia. Likely secondary to contraction alkalosis. - Resolved # Metabolic alkalosis, acute. - Resolved # SIRS criteria, present on admission. Leukocytosis WBC 14.6; heart rate 139. No obvious source of infection. Possibly stress reaction. Heart rate may be secondary to atrial dysrhythmia from hypokalemia. Blood pressure is stable, antibiotics not indicated at present. No clinical symptoms of infection. Chest x-ray - with ambiguous findings. Urinalysis was contaminated specimen - Follow clinically # Hyperglycemia, acute. No history of type II diabetes mellitus. - Check hemoglobin A1c CODE STATUS: Patient is not decisional and no family are present at this time. Venous thromboembolism prophylaxis with Lovenox Disposition: Patient is admitted with expectation of greater than 2 nights of inpatient therapy due to severe electrolyte derangement due to uncontrolled nausea and vomiting. GI Prophylaxis: Proton Pump Inhibitor VTE Prophylaxis: Sub-Q Enoxaparin Resuscitation Status: CPR: Attempt Resuscitation Trevon Padilla MD Dec 27, 2016 11:27
--- NOTE | 2016-12-27 11:29 | PCM.PNMED ---
Subjective Date of Service Dec 27, 2016 Subjective GASTROENTEROLOGY PROGRESS NOTE: Patient denies any abdominal pain, nausea, or vomiting. She reports mild sore throat since the EGD yesterday. Magic mouthwash PRN throat comfort ordered by primary care team. She is on strict NPO with NG tube in place, which she tolerates well. Exam Vital Signs Vital Sign - Last Date Time Temp Pulse Resp B/P Pulse Ox O2 Delivery O2 Flow Rate FiO2 12/27/16 08:31 36.5 88 17 147/84 97 Room Air Intake and Output 12/26/16 12/26/16 12/27/16 Cumulative From/Thru 15:00 23:00 07:00 12/25/16 10:28 - 12/27/16 05:57 Intake Total 200 ml 772 ml 1028 ml 3800 ml Output Total 175 ml 2200 ml 6600 ml Balance 200 ml 597 ml -1172 ml -2800 ml Intake Oral 500 ml IV Total 200 ml 772 ml 1028 ml 3300 ml Output Urine Total 1500 ml 5725 ml Gastric Drainage Total 175 ml 700 ml 875 ml # Voids 3 4 # Bowel Movements 0 0 Exam General: Alert, oriented to self, demented. Elderly woman lying on bed comfortably with her daughter by bedside. No acute distress. HEENT: Normocephalic. EOMI. Anicteric sclera. NG tube is in place. Neck: Supple, no thyromegaly. Cardiac: Regular rate and rhythm. No murmurs, rubs, or gallops. Respiratory: Clear to auscultation bilaterally. No rales/rhonchi/wheezes noted. Abdomen: Soft, mildly distended, nontender to palpation. No guarding or rebound. Hypoactive bowel sound. Extremities: No edema/clubbing/cyanosis. Neurologic: A full neurologic examination could not be tested secondary to dementia. IVs and Medications Medications Reviewed: Medications were reviewed in detail Lab and Diagnostics Result Diagram: 12/27/16 0301 12/27/16 0810 X-Rays, CTs and MRIs PROCEDURE: CT ABDOMEN WITH CONTRAST IMPRESSION: 1. Distended gastric lumen, consistent with the given history of duodenal obstruction. 2. Hepatic steatosis. 3. 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 Dictated by: Amrik Mancera M.D. on 12/26/2016 at 21:20 Approved by: Amrik Mancera M.D. on 12/26/2016 at 21:23 PROCEDURE: X-RAY CHEST ONE VIEW, PORTABLE IMPRESSION: 1. Indistinct bandlike opacity in the left lung apex may represent developing consolidation or atelectasis. Dictated by: Roel Thompson M.D. on 12/25/2016 at 19:43 . 12-lead ECG 12/25/16 at 11:25 from multi focal atrial rhythm, [address] depressions V3-5, conduction intervals normal Assessment & Plan This is a 76-year-old woman presenting with nausea and vomiting with associated hypokalemia, hyponatremia and metabolic alkalosis. 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 Subsequent CT abdomen and pelvis showed distended gastric lumen, which was consistent with the given history of duodenal obstruction, but no sign of malignancy was found. Abdominal ultrasound was also performed and shows a normal gallbladder and biliary tree. 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 RECOMMENDATIONS: - Surgery was consulted and will plan for surgical intervention with bypass of the strictured portion of duodenum - Will need to start TPN until plans for surgery can be made. - Continue strict NPO and NG tube. - Continue Protonix 40mg IV BID. Thank you for allowing us to participate in the patient's care. We will sign off at this point. If you have any further questions, please do not hesitate to contact us. Pain Evaluation: Adequate Pain Control GI Prophylaxis: Proton Pump Inhibitor VTE Prophylaxis: Sub-Q Enoxaparin Resuscitation Status: CPR: Attempt Resuscitation Attending Statement pt seen and examined Ct results noted d/w with primary team further recommendations as per surgery team Dinorah Esquivel DO Dec 27, 2016 10:04 Aria Powell MD Dec 28, 2016 17:31
--- NOTE | 2016-12-27 11:42 | PCM.PNSURG ---
Subjective Visit Information: Reason for Visit Low Sodium, Low Potassium, Presistent Vomiting Surgery/Surgery Date Post-Op Day # Date of Admission: Dec 25, 2016 at 14:51 Hospital Day # Subjective: pt underwent EGD yesterday with finding of severe stricture at duodenal bulb level (no lumen), then had a CT scan yesterday; NGT in place Objective Objective awake family (2 daughters) present NGT in place Abd: nontender Vital Sign- Last 8 Hours Date Time Temp Pulse Resp B/P Pulse Ox O2 Delivery O2 Flow Rate FiO2 12/27/16 10:34 92 12/27/16 08:31 36.5 88 17 147/84 97 Room Air Intake and Output- Last 8 Hour 12/27/16 Cumulative From/Thru 07:00 12/25/16 10:28 - 12/27/16 05:57 Intake Total 1028 ml 3800 ml Output Total 2200 ml 6600 ml Balance -1172 ml -2800 ml Intake Oral 500 ml IV Total 1028 ml 3300 ml Output Urine Total 1500 ml 5725 ml Gastric Drainage Total 700 ml 875 ml # Voids 3 4 # Bowel Movements 0 0 Result Diagram: 12/27/16 0301 12/27/16 0810 Assessment & Plan Impression N/V with duodenal obstruction or stricture Problems: Plan Will get an upper GI today and a fine-cut CT of the pancreatic level. Will send off CEA and CA 19-9 levels. Pt does have mild dementia. Tentatively discussed with family the possibility of gastro-jejunostomy to bypass the duodenal obstruction. I wonder if this is due to her dilated stomach causing a kink at the duodenum level (like a volvulus). Nutrition support via TPN VTE Prophylaxis: Sub-Q Enoxaparin Resuscitation Status: CPR: Attempt Resuscitation Yg Patel MD Dec 27, 2016 11:42
[2016-12-27] MEDS: Diphen-Lido-Mylanta 1:1:1 Susp 15 mL Syringe PO PRN (14:27)
--- NOTE | 2016-12-27 15:27 | DRSVH ---
PROCEDURE: X-RAY UPPER GI WITH GASTROGRAPHIN ([id number]) INDICATIONS: eval duodenal obstruction COMPARISON: [facility], CT, CT ABD W CON, 12/26/2016, 20:54. FINDINGS: KUB: Preprocedural etl application developer film demonstrates a normal bowel gas pattern. No suspicious abdominal calc ifications. Visualized solid organ contours appear normal. Bony structures appear unremarkable. Na sogastric tube tip projected over the gastric mid body. Debris within the stomach. Residual contras t media within the right colon and the urinary bladder. Gastrografin was instilled via the nasogastric tube. There is partial opacification of the stomach. Patient was rolled into a right posterior oblique position and there is further opacification of the gastric antrum and the duodenal bulb. No additional contrast media was seen extending distal to the bulb level. Delayed images were obtained which also demonstrated no definite further opacification of the second and third portion the duodenum as well as the small bowel. IMPRESSION: 1. Gastrografin opacifying the stomach as well as the duodenal bulb and no definite further opacifica tion seen within the remaining duodenum as well as the small bowel. High-grade duodenal stricture is suspected. Dictated by: Ramiro CLAUDIO Interpreted: Aurelio French MD on 12/27/2016 at 15:24 Transcribed by: SPRING on 12/27/2016 at 15:26 Approved by: Aurelio French M.D. on 12/27/2016 at 15:41
[2016-12-27] MEDS: Total Parenteral Nutrition 1 BAG IV SCH (17:09)
[2016-12-27] MEDS ORDERED: TPN Per Pharmacist XX ONE (21:00)
[2016-12-28] VITALS (12 sets, daily range): BP systolic 128–154; BP diastolic 77–95; PULSE 93–112; RESP 16–21; O2SAT 93–99
[2016-12-28] MEDS: Insulin REGULAR SS Low-Dose SUBQ SCH ×4 (01:49→20:16)
[2016-12-28 04:40] LABS: Magnesium 2.2 mg/dL (1.6-2.6); Phosphorus 2.6 mg/dL (2.5-4.9)
[2016-12-28] MEDS ORDERED: KCl 40 mEq/500 mL D5W(K 3 - 3.7 & Creat < 2) IV ONE (05:45)
[2016-12-28] MEDS: Pantoprazole 4 mg/mL 10 mL Inj IVPUSH SCH ×2 (09:27→18:25)
--- NOTE | 2016-12-28 11:18 | PCM.PHAPRO ---
Progress TPN TPN #2 Indication: Duodenal Stricture I Fluids/Vs Euvolemic, VSS II. Chem Hypokalemia p/ Adjust Rx III. Glucose <140, requiring no supplemental SQ insulin p/ Continue 5 units in TPN IV. Substrate At 50% goal PARENTERAL NUTRITION ORDERS 2 28-Dec-16 Standard Hang Time: 2100 Substrates Total kcal: 835 AMINO ACIDS 40 g DEXTROSE 125 g Total Volume (mL): 1750 LIPIDS 25 g Sterile Water for Injection QS mL To Infuse Over (hrs): 24 Total Volume 1750 mL At at a rate of (mL/hr): 73 Additives Sodium Chloride 60 mEq "typical" daily requirements Sodium Acetate 30 mEq Sodium 50-120mEq Potassium Chloride 60 mEq Potassium 60-120mEq Potassium Phosphate 30 mEq Phosphate 20-40mEq Calcium Gluconate 9 mEq Magnesium 8-32mEq Magnesium Sulfate 12 mEq Calcium 9-22mEq Acetate* 80-120mEq Chloride* 80-120mEq Regular Insulin 5 units *Depending on acid-base status Famotidine mg Multivitamins 1 std dose Insulin Regimen Trace Elements 1 std dose none Thiamine mg Regular Low Intensity Subcut x Folic Acid mg Regular Medium Intensity Subcut Ascorbic Acid mg Regular High Intensity Subcut Regular Insulin Infusion Other: Special Instructions: To be infused via central line only. For delay or inturruption of TPN contact the pharmacist for alternative replacement solution. Giacomo Wooten S Pharm D Dec 28, 2016 11:18
--- NOTE | 2016-12-28 11:27 | PCM.PNMED ---
Subjective Date of Service Dec 28, 2016 Subjective She is doing well. She tolerates her NG suction well. She does have a very sore throat from NG tube and some laryngitis. She denies fevers chills. No vomiting. No flatus. No abdominal distention or pain. No palpitations Exam Vital Signs Vital Sign - Last Date Time Temp Pulse Resp B/P Pulse Ox O2 Delivery O2 Flow Rate FiO2 12/28/16 08:02 37.0 93 16 138/84 93 Room Air Intake and Output 12/27/16 12/27/16 12/28/16 Cumulative From/Thru 15:00 23:00 07:00 12/25/16 10:28 - 12/28/16 05:20 Intake Total 914 ml 1156 ml 5870 ml Output Total 1600 ml 1775 ml 9975 ml Balance -686 ml -619 ml -4105 ml Intake Oral 100 ml 0 ml 600 ml IV Total 814 ml 1156 ml 5270 ml Output Urine Total 700 ml 1500 ml 7925 ml Gastric Drainage Total 900 ml 275 ml 2050 ml # Voids 4 # Bowel Movements 0 0 Exam Alert and oriented -3, no distress. Fluent speech. Nasogastric tube is in place. Anicteric sclera. Lungs are clear with normal rate and effort Heart is regular without murmur gallop or rub Abdomen soft nontender, flat Extremities are free of edema. Skin is free of rash or lesions. IVs and Medications Medications Reviewed: Medications were reviewed in detail Lab and Diagnostics Result Diagram: 12/27/16 0301 12/28/16 0359 X-Rays, CTs and MRIs PROCEDURE: CT ABDOMEN WITH CONTRAST IMPRESSION: 1. Distended gastric lumen, consistent with the given history of duodenal obstruction. 2. Hepatic steatosis. 3. 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 Dictated by: Amrik Mancera M.D. on 12/26/2016 at 21:20 Approved by: Amrik Mancera M.D. on 12/26/2016 at 21:23 PROCEDURE: X-RAY CHEST ONE VIEW, PORTABLE IMPRESSION: 1. Indistinct bandlike opacity in the left lung apex may represent developing consolidation or atelectasis. Dictated by: Roel Thompson M.D. on 12/25/2016 at 19:43 . 12-lead ECG 12/25/16 at 11:25 from multi focal atrial rhythm, [address] depressions V3-5, conduction intervals normal Assessment & Plan #. Possible small bowel obstruction secondary to duodenal bulb stricture. POA. Stable. The plan is to continue nasogastric tube suction and compare for surgery which will probably be on Sunday. This will be a gastric distal duodenal bypass. The patient in the meantime will have IV access obtained which will be a total central venous catheter with interventional radiology. A PICC was unsuccessful yesterday due to small veins in the arms. Discussed this plan extensively with patient, and daughter Teresa today. #. Protein caloric deficiency malnutrition. 8. The plan is to provide parenteral nutrition as outlined above. We anticipate that she will require TPN before surgery and probably up to 7 days after surgery for a total of about 2 weeks. For this reason we will choose a tunneled central venous catheter. There is also discussion of placing a enteral tube through a gastrostomy at the time of surgery so that the patient can have early institution of enteral feeds as well. # Hypovolemic Hyponatremia. Present on admission, improving. Improved. # Acute kidney injury, present on admission, improved. # Hypokalemia, acute. Present on admission. Resolved. # Metabolic alkalosis, acute. - Resolved # SIRS criteria, present on admission. Resolved. # Hyperglycemia, acute. No history of type II diabetes mellitus. - Check hemoglobin A1c, improved. CODE STATUS: Patient is not decisional and no family are present at this time. Venous thromboembolism prophylaxis with Lovenox Disposition: Patient is admitted with expectation of greater than 2 nights of inpatient therapy due to severe electrolyte derangement due to uncontrolled nausea and vomiting. GI Prophylaxis: Proton Pump Inhibitor VTE Prophylaxis: Sub-Q Enoxaparin Resuscitation Status: CPR: Attempt Resuscitation Trevon Padilla MD Dec 28, 2016 11:26
--- NOTE | 2016-12-28 13:10 | PCM.PNSURG ---
Subjective Visit Information: Reason for Visit Low Sodium, Low Potassium, Presistent Vomiting Surgery/Surgery Date Post-Op Day # Date of Admission: Dec 25, 2016 at 14:51 Hospital Day # Subjective: Stable overnight. UGI shows very distended stomach and high grade duodenal stricture. My partner Dr. Patel ordered pancreatic protocol CT which is pending. Objective Vital Sign- Last 8 Hours Date Time Temp Pulse Resp B/P Pulse Ox O2 Delivery O2 Flow Rate FiO2 12/28/16 12:09 36.6 98 20 132/81 97 Room Air 12/28/16 08:02 37.0 93 16 138/84 93 Room Air 12/28/16 08:00 97 Intake and Output- Last 8 Hour 12/28/16 Cumulative From/Thru 07:00 12/25/16 10:28 - 12/28/16 05:20 Intake Total 1156 ml 5870 ml Output Total 1775 ml 9975 ml Balance -619 ml -4105 ml Intake Oral 0 ml 600 ml IV Total 1156 ml 5270 ml Output Urine Total 1500 ml 7925 ml Gastric Drainage Total 275 ml 2050 ml # Voids 4 # Bowel Movements 0 0 General: Alert, Cooperative, No Acute Distress Abdomen: Soft, Non-tender Result Diagram: 12/27/16 0301 12/28/16 0359 Assessment & Plan Impression 76yof with probably benign duodenal stricture. Problems: Plan Pancreas protocol CT today. I have gone over imaging with the radiologist and expect benign findings. Probable date time of surgery will be Sunday. Continue TPN and NG until that time. Likely plan will be either pyloroplasty ( i.e. Gilma, Yusuf, or Justine) vs. Billroth II; with feeding jejunostomy; depending on intraoperative findings. VTE Prophylaxis: Sub-Q Enoxaparin Resuscitation Status: CPR: Attempt Resuscitation Cady Handley MD Dec 28, 2016 13:10
[2016-12-28] MEDS ORDERED: 0.9% Sodium Chloride 1,000 ML ONE ×2 (13:50)
[2016-12-28] MEDS ORDERED: Heparin 1,000 Unit/mL 10 mL Inj ONE (13:50)
[2016-12-28] MEDS ORDERED: fentaNYL-PF 50 mCg/mL 2 mL Inj ONE (15:04)
[2016-12-28] MEDS ORDERED: 0.9% Sodium Chloride 50 ML ONE (16:08)
--- NOTE | 2016-12-28 17:12 | DRSVH ---
PROCEDURE: CV TUNNEL CATH PLCMNT 1. Sonographic guidance for venous access. 2. Conscious sedation for 26 minutes. 3. Right internal jugular vein tunneled central PICC/Groshong catheter placement. 4. Fluoroscopic guidance for catheter placement. 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 Informed written consent was obtained andplace d in the chart. The patient was brought to the angiography suite, and conscious sedation wasadministe red intravenously by custodial staff, while continuous cardiorespiratory monitoring wasperforme d.Maximum sterile barrier technique was employed per standard protocol, including hand hygiene, cap, mask, sterile gown and gloves, and 2% chlorhexidine. Sterile ultrasound probe cover was also utilized .1% lidocaine was used for local anaesthesia. Under sonographic guidance, the right internal jugularvein was accessed with a Micropuncture set. A m icropuncture wire was advanced into the vena cava. Subcutaneous tunnel was created within the right a nterior chest wall, through which a 9.5 F double lumen Groshong catheter was passed. The catheter was advanced through the peel-away sheath and the tip was placed at the cavoatrial junction. Peel-away sheath was removed. Adequate flow was obtained through both lumens of the catheter. The venotomy was closed with Vicryl, and the catheter was fastened to the skin with Tic kike. Both lumens were flushed with heparinized saline. The patient tolerated the procedure without difficulty and was in stable condition at the conclusion of the procedure. COMPARISON: None. FINDINGS: The right internal jugular vein is patent by ultrasound. Fluoroscopic imaging demonstrates tip of the catheter at the cavoatrial junction. IMPRESSION: Right internal jugular vein tunneled central PICC catheter placement using sonographic and fluoroscop ic guidance. Dictated by: Milli Del Angel M.D. on 12/28/2016 at 17:06 Approved by: Milli Del Angel M.D. on 12/28/2016 at 17:11
--- NOTE | 2016-12-28 17:13 | DRSVH ---
PROCEDURE: X-RAY CHEST ONE VIEW, PORTABLE ([id number]) INDICATIONS: POST PICC LINE PLACEMENT TECHNIQUE: One view of the chest was acquired. COMPARISON: [facility], CR, XR CHEST 1VW (PORTABLE), 12/25/2016, 18:41. FINDINGS: Surgical changes and devices: PICC line has been placed which projects at the atriocaval junction via a right-sided approach. Lungs and pleura: No pleural effusions or pneumothorax. Lungs are clear. Mediastinum: Mediastinal contours appear normal. Heart size is normal. Bones and chest wall: No suspicious bony lesions. Overlying soft tissues appear unremarkable. IMPRESSION: Tip of PICC line projects over the atriocaval junction. Dictated by: Lola Mina MD, PhD on 12/28/2016 at 17:10 Approved by: Lola Mina MD, PhD on 12/28/2016 at 17:11
[2016-12-28] MEDS: Dextrose 5% Lactated Ringer's 1,000 ML IV SCH (18:25)
[2016-12-28 19:00] LABS: Lipase 68 U/L (13-60)
[2016-12-28 19:01] LABS: Bilirubin, Direct < 0.2 mg/dL (0.0-0.3)
[2016-12-28] MEDS: Acetaminophen IV 1,000 MG in IV Premix 1 EACH IV PRN (19:51)
[2016-12-28] MEDS: Total Parenteral Nutrition 1 BAG IV SCH (19:55)
[2016-12-29] MEDS: Insulin REGULAR SS Low-Dose SUBQ SCH ×4 (02:30→20:21)
[2016-12-29] MEDS: Acetaminophen IV 1,000 MG in IV Premix 1 EACH IV PRN ×3 (02:53→18:42)
[2016-12-29 03:32] VITALS: PULSE 91
[2016-12-29 05:00] VITALS: BP 159/92; PULSE 102; RESP 16; O2SAT 99
[2016-12-29 05:38] LABS: Magnesium 2.3 mg/dL (1.6-2.6)
[2016-12-29 08:00] VITALS: PULSE 96
[2016-12-29 08:48] VITALS: BP 148/87; PULSE 107; RESP 18; O2SAT 99
[2016-12-29] MEDS: Pantoprazole 4 mg/mL 10 mL Inj IVPUSH SCH ×2 (09:03→17:47)
--- NOTE | 2016-12-29 10:09 | PCM.PNMED ---
Subjective Date of Service Dec 29, 2016 Subjective No pain, difficulties with nausea. She is tolerating the NG tube without difficulty. No chest pain, cough. She does have some postnasal drip. No dyspnea. Exam Vital Signs Vital Sign - Last Date Time Temp Pulse Resp B/P Pulse Ox O2 Delivery O2 Flow Rate FiO2 12/29/16 08:48 36.8 107 18 148/87 99 Room Air Intake and Output 12/28/16 12/28/16 12/29/16 Cumulative From/Thru 15:00 23:00 07:00 12/25/16 10:28 - 12/29/16 06:23 Intake Total 1500 ml 944 ml 8314 ml Output Total 2550 ml 05060 ml Balance 1500 ml -1606 ml -4211 ml Intake Oral 100 ml 100 ml 800 ml IV Total 1400 ml 200 ml 6870 ml TPN/PPN 644 ml 644 ml Output Urine Total 1500 ml 9425 ml Gastric Drainage Total 1050 ml 3100 ml # Voids 1 5 # Bowel Movements 0 0 Exam Alert and oriented -3, no distress. Fluent speech. NG tube in place Anicteric sclera. Lungs are clear with normal rate and effort Heart is regular without murmur gallop or rub Abdomen soft nontender, flat Extremities are free of edema. Skin is free of rash or lesions. IVs and Medications Medications Reviewed: Medications were reviewed in detail Lab and Diagnostics Result Diagram: 12/27/16 0301 12/29/16 0505 X-Rays, CTs and MRIs PROCEDURE: CT ABDOMEN WITH CONTRAST IMPRESSION: 1. Distended gastric lumen, consistent with the given history of duodenal obstruction. 2. Hepatic steatosis. 3. 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 Dictated by: Amrik Mancera M.D. on 12/26/2016 at 21:20 Approved by: Amrik Mancera M.D. on 12/26/2016 at 21:23 PROCEDURE: X-RAY CHEST ONE VIEW, PORTABLE IMPRESSION: 1. Indistinct bandlike opacity in the left lung apex may represent developing consolidation or atelectasis. Dictated by: Roel Thompson M.D. on 12/25/2016 at 19:43 . 12-lead ECG 12/25/16 at 11:25 from multi focal atrial rhythm, [address] depressions V3-5, conduction intervals normal Assessment & Plan #. Small bowel obstruction secondary to duodenal stricture, POA. Patient is stable with an NG tube to suction. The plan is for surgical correction on Sunday which will probably be a gastrojejunal bypass. #. Protein caloric deficiency malnutrition. POA. Patient had a total catheter placed yesterday. She is on TPN and this will be continued before and after surgery until she can be transitioned to enteral feeding. # Hypovolemic Hyponatremia. Present on admission, resolved. # Acute kidney injury, present on admission, resolved. # Hypokalemia, acute. Present on admission. Resolved. # Metabolic alkalosis, resolved. # SIRS criteria, present on admission. Resolved. # Hyperglycemia, acute. No history of type II diabetes mellitus. Improved. CODE STATUS: Patient is not decisional and no family are present at this time. Venous thromboembolism prophylaxis with Lovenox Disposition: Patient is admitted with expectation of greater than 2 nights of inpatient therapy due to severe electrolyte derangement due to uncontrolled nausea and vomiting. GI Prophylaxis: Proton Pump Inhibitor VTE Prophylaxis: Sub-Q Enoxaparin Resuscitation Status: CPR: Attempt Resuscitation Trevon Padilla MD Dec 29, 2016 10:09
--- NOTE | 2016-12-29 11:12 | PCM.PHAPRO ---
Progress TPN TPN #2 Indication: Duodenal Stricture I Fluids/Vs Euvolemic, VSS II. Chem WNL and without significant trends III. Glucose <140, requiring no supplemental SQ insulin p/ Continue 5 units in TPN IV. Substrate At 50% goal PARENTERAL NUTRITION ORDERS 3 29-Dec-16 Standard Hang Time: 2100 Substrates Total kcal: 835 AMINO ACIDS 40 g DEXTROSE 125 g Total Volume (mL): 1750 LIPIDS 25 g Sterile Water for Injection QS mL To Infuse Over (hrs): 24 Total Volume 1750 mL At at a rate of (mL/hr): 73 Additives Sodium Chloride 60 mEq "typical" daily requirements Sodium Acetate 30 mEq Sodium 50-120mEq Potassium Chloride 40 mEq Potassium 60-120mEq Potassium Phosphate 30 mEq Phosphate 20-40mEq Calcium Gluconate 9 mEq Magnesium 8-32mEq Magnesium Sulfate 12 mEq Calcium 9-22mEq Acetate* 80-120mEq Chloride* 80-120mEq Regular Insulin 5 units *Depending on acid-base status Famotidine mg Multivitamins 1 std dose Insulin Regimen Trace Elements 1 std dose none Thiamine mg Regular Low Intensity Subcut x Folic Acid mg Regular Medium Intensity Subcut Ascorbic Acid mg Regular High Intensity Subcut Regular Insulin Infusion Other: Special Instructions: To be infused via central line only. For delay or inturruption of TPN contact the pharmacist for alternative replacement solution. Signature Date: javier tom 2024 Giacomo Wooten S Pharm D Dec 29, 2016 11:12
[2016-12-29] MEDS ORDERED: Sodium Chloride LOK Flush 10 mL Syringe IVFLUSH PRN ×2 (11:40)
--- NOTE | 2016-12-29 13:55 | DRSVH ---
PROCEDURE: CT ABDOMEN PANCREATIC PROTOCOL INDICATIONS: 76 year-old female with duodenal obstruction. Assess for underlying pancreatic lesion. TECHNIQUE: Noncontrast 3 mm thick sections acquired through the pancreas. After the administration of intraveno us contrast, 3 mm thick pancreatic-phase images acquired through the pancreas, and 5 mm thick portal venous-phase images then acquired from the diaphragm to the iliac crests. 5 mm thick coronal and sag ittal reformats were performed. For radiation dose reduction, the following was used: automated exp osure control, adjustment of mA and/or kV according to patient size. COMPARISON: [facility], CR, XR UPPER GI GASTROGRAFIN, 12/27/2016, 12:20. [facility], CT, CT ABD W CON, 12/26/2016, 20:54. [facility], US, US ABDOMEN, 12/26/2016, 8:14 . FINDINGS: Image quality: Excellent. Lung bases: Lung bases are clear. Heart size is normal. Pancreas: Pancreas is normal in overall size and morphology, without mass lesions identified. Main pa ncreatic duct appears normal in caliber throughout. Other solid organs: Liver and spleen are normal in size. There is widespread fatty infiltration of the liver, with patchy subcapsular sparing around the gallbladder fossa. 2.6 cm right superior hepati c dome simple cyst is present. Gallbladder wall thickness is normal. Biliary system is non dilated. No adrenal nodules. Kidneys are normal in size and enhancement, without hydronephrosis. 1.8 cm supe rior left renal cortical simple cyst is also present. Peritoneum and bowel: There is persistent distention of the gastric lumen, containing dependent hype rdense oral contrast, as well as distal portions of nasogastric tube. Unenhanced duodenum and more di stal bowel loops demonstrate normal wall thickness and caliber. No free fluid or air. Nodes and vessels: No retroperitoneal or mesenteric adenopathy by size criteria. Aorta and inferior vena cava are normal in size. 1.1 cm peripherally calcified splenic artery aneurysm is again noted b etween the left kidney and pancreatic tail. Bones: No suspicious bony lesions. There is non-acute T11 anterior wedge compression fracture as bef ore, with 33% height loss. There is L4-L5 spondylolisthesis from facet joint degeneration. There is multilevel lumbar spine disc degeneration, as well as mild lumbar spine dextroscoliosis. Miscellaneous: No ventral hernias. IMPRESSION: 1. No pancreatic mass lesions identified. 2. Persistent dilation of the gastric lumen with normal caliber duodenum, consistent with gastric out let obstruction of uncertain etiology. Endoscopy may be needed to diagnose an underlying occult obstr ucting mass lesion. 3. Diffuse fatty infiltration of the liver. 4. 2.6 cm right hepatic dome simple cyst, as well as 1.8 cm superior left renal cortical cyst. 5. 1.1 cm peripherally calcified splenic artery aneurysm as before. 6. Nonacute T11 anterior wedge compression fracture. Dictated by: Sulaiman Figueroa M.D. on 12/29/2016 at 13:40 Approved by: Sulaiman Figueroa M.D. on 12/29/2016 at 13:54
[2016-12-29 15:23] VITALS: BP 136/85; PULSE 88; RESP 19; O2SAT 99
--- NOTE | 2016-12-29 15:46 | PROG NOTE ---
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 She has undergone an extensive workup, including CT scan of the abdomen, upper endoscopy, and now CT pancreas protocol, as well as upper GI fluoroscopy. There is no sign of malignancy. She has an extremely large, distended, boggy stomach which does not empty due to the stricture, which was seen on endoscopy and appeared benign. I spent a great deal of time discussing this with the daughter and , as well as the patient herself, today. They are a number of surgical options to treat this. We discussed minimalist approaches such as feeding jejunostomy with venting gastrostomy, laparoscopic gastrojejunostomy alone in order to bypass the stricture, and antrectomy with gastrojejunostomy with or without a feeding tube. We discussed the risks and benefits of all of these different options. The patient herself has mild dementia and does not appear to understand much of the conversation. However, her , who is her medical decision maker, understands it entirely, as does her daughter Teresa. OBJECTIVE: Vital signs are within normal limits with exception of heart rate of 107. General: Awake and alert, somewhat confused secondary to baseline dementia, in no acute distress. Abdomen: Soft, mildly distended, nontender. NG tube is in place and continues to have substantial output, 1000 mL in the last 15 hours. IMAGING: CT pancreas protocol shows no sign of malignancy. CT abdomen shows no sign of malignancy. LABORATORIES: CBC and comprehensive metabolic panel are within normal limits, including albumin of 4.0 and a normal bilirubin level of 0.5. ASSESSMENT: A 76-year-old woman with benign duodenal stricture and a large, dilated, boggy stomach. PLAN: Based on careful weighing of risks and benefits, and the goal to perform as few procedures/operations as possible, on Sunday morning at 7:30 a.m. I plan to perform an open antrectomy with gastrojejunostomy and feeding jejunostomy distal to the gastrojejunostomy. I discussed the risks and benefits in great detail with the family, including risks of infection from the operation or the chronic TPN that she is on, duodenal stump leak, anastomotic leak, feeding jejunostomy complications including obstruction, kinking, and clogging, the surgical risk of early discontinuation of feeding tube, the possibility that she will have nausea postoperatively even if she has adequate emptying of her remaining stomach, and the possibility that she will require tube feeds halfway. We also discussed disposition postoperatively including the possibility of SNF versus home versus home health care. We talked about the differences between long-term TPN and long-term enteral feeds. We all agree that the ultimate goal was to minimize the number of procedures and maximize recovery from this process. Everyone was in agreement, and a consent form was signed today. Please make the patient n.p.o. at midnight on the evening of December 31. Continue TPN until the time of surgery. One hour was spent on this patient visit today, >50% in counseling and/or coordination of care. CONI
[2016-12-29 20:04] VITALS: BP 131/76; PULSE 89; RESP 20; O2SAT 99
[2016-12-29] MEDS: Total Parenteral Nutrition 1 BAG IV SCH (20:55)
[2016-12-30] MEDS: Insulin REGULAR SS Low-Dose SUBQ SCH ×4 (02:30→22:09)
[2016-12-30 04:52] VITALS: BP 143/84; PULSE 98; RESP 20; O2SAT 97
[2016-12-30 05:34] LABS: Magnesium 2.5 mg/dL (1.6-2.6)
[2016-12-30] MEDS: Acetaminophen IV 1,000 MG in IV Premix 1 EACH IV PRN ×3 (07:08→22:03)
--- NOTE | 2016-12-30 07:14 | PCM.PHAPRO ---
Progress TPN TPN Management: -Day 3 of TPN for pt with duodenal stricture -macronutrients will remain the same -electrolytes fairly stable with minor adjustments -serial BMP's ordered for several days -Plan: formula for evening of 12/30: PARENTERAL NUTRITION ORDERS 30-Dec-16 Standard Hang Time: 2100 Substrates Total kcal: 835 AMINO ACIDS 40 g DEXTROSE 125 g Total Volume (mL): 1750 LIPIDS 25 g Sterile Water for Injection QS mL To Infuse Over (hrs): 24 Total Volume 1750 mL At at a rate of (mL/hr): 73 Additives Sodium Chloride 60 mEq "typical" daily requirements Sodium Acetate 30 mEq Sodium 50-120mEq Potassium Chloride 70 mEq Potassium 60-120mEq Potassium Phosphate 20 mEq Phosphate 20-40mEq Calcium Gluconate 12 mEq Magnesium 8-32mEq Magnesium Sulfate 6 mEq Calcium 9-22mEq Acetate* 80-120mEq Chloride* 80-120mEq Regular Insulin 5 units *Depending on acid-base status Famotidine mg Multivitamins 1 std dose Insulin Regimen Trace Elements 1 std dose none Thiamine mg Regular Low Intensity Subcut x Folic Acid mg Regular Medium Intensity Subcut Ascorbic Acid mg Regular High Intensity Subcut Regular Insulin Infusion Other: Shreya Morales [facility] Dec 30, 2016 07:14
[2016-12-30] MEDS: Pantoprazole 4 mg/mL 10 mL Inj IVPUSH SCH ×2 (08:02→16:42)
--- NOTE | 2016-12-30 09:09 | PCM.PNMED ---
Subjective Date of Service Dec 30, 2016 Subjective No complaints, says she was up in a chair yesterday, wants a shower today and daughter asking about her walking in the victor. Exam Vital Signs Vital Sign - Last Date Time Temp Pulse Resp B/P Pulse Ox O2 Delivery O2 Flow Rate FiO2 12/30/16 04:52 36.9 98 20 143/84 97 Room Air Intake and Output 12/29/16 12/29/16 12/30/16 Cumulative From/Thru 15:00 23:00 07:00 12/25/16 10:28 - 12/30/16 06:17 Intake Total 1350 ml 760 ml 17291 ml Output Total 1700 ml 99752 ml Balance 1350 ml -940 ml -3801 ml Intake Oral 200 ml 0 ml 1000 ml IV Total 50 ml 181 ml 7101 ml TPN/PPN 1100 ml 579 ml 2323 ml Output Urine Total 1200 ml 48139 ml Gastric Drainage Total 500 ml 3600 ml # Voids 5 # Bowel Movements 0 Exam General: Alert and oriented, no acute distress Heart: Regular Lungs: Clear anteriorly and laterally Abdomen: Soft, non-tender, active bowel tones Extremities: No pedal edema IVs and Medications Medications Reviewed: Medications were reviewed in detail Lab and Diagnostics Result Diagram: 12/27/16 0301 12/30/16 0450 X-Rays, CTs and MRIs PROCEDURE: CT ABDOMEN WITH CONTRAST IMPRESSION: 1. Distended gastric lumen, consistent with the given history of duodenal obstruction. 2. Hepatic steatosis. 3. 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 Dictated by: Amrik Mancera M.D. on 12/26/2016 at 21:20 Approved by: Amrik Mancera M.D. on 12/26/2016 at 21:23 PROCEDURE: X-RAY CHEST ONE VIEW, PORTABLE IMPRESSION: 1. Indistinct bandlike opacity in the left lung apex may represent developing consolidation or atelectasis. Dictated by: Roel Thompson M.D. on 12/25/2016 at 19:43 . 12-lead ECG 12/25/16 at 11:25 from multi focal atrial rhythm, [address] depressions V3-5, conduction intervals normal Assessment & Plan #. Small bowel obstruction secondary to duodenal stricture, POA. Patient is stable with an NG tube to suction. The plan is for surgical correction on Sunday which will probably be a gastrojejunal bypass. #. Protein caloric deficiency malnutrition. POA. She is on TPN and this will be continued before and after surgery until she can be transitioned to enteral feeding. # Hypovolemic Hyponatremia. Present on admission, resolved. # Acute kidney injury, present on admission, resolved. # Hypokalemia, acute. Present on admission. Resolved. # Metabolic alkalosis, resolved. # SIRS criteria, present on admission. Resolved. # Hyperglycemia, acute. No history of type II diabetes mellitus. Improved. Glucose in the low 100s. CODE STATUS: Patient is not decisional and no family are present at this time. Venous thromboembolism prophylaxis with Lovenox Disposition: Patient is admitted with expectation of greater than 2 nights of inpatient therapy due to severe electrolyte derangement due to uncontrolled nausea and vomiting. GI Prophylaxis: Proton Pump Inhibitor VTE Prophylaxis: Sub-Q Enoxaparin Resuscitation Status: CPR: Attempt Resuscitation Cydney Armstrong MD Dec 30, 2016 09:09
--- NOTE | 2016-12-30 11:18 | PROG NOTE ---
[address] [address] PROGRESS NOTE PATIENT: NEMESIO MCCONNELL : 1940 MR#: [id number] ADMIT: 12/25/2016 JOB ID: [id number] DATE: 12/30/2016 SUBJECTIVE: The patient remains stable with her NG tube in place on her TPN with plans for surgery by Dr. Handley on Sunday. The patient was seen along with her daughter. No general surgery issues today.
[2016-12-30 12:35] VITALS: BP 125/73; PULSE 98; RESP 20; O2SAT 96
[2016-12-30] MEDS ORDERED: 0.9% Sodium Chloride 1,000 ML IV ONE (17:55)
[2016-12-30 20:14] VITALS: BP 133/70; PULSE 85; RESP 18; O2SAT 96
[2016-12-30] MEDS: Total Parenteral Nutrition 1 BAG IV SCH (21:33)
[2016-12-31] MEDS: Insulin REGULAR SS Low-Dose SUBQ SCH ×4 (05:00→20:30)
[2016-12-31 05:03] VITALS: BP 125/71; PULSE 117; RESP 16; O2SAT 96
[2016-12-31 05:54] LABS: Magnesium 2.3 mg/dL (1.6-2.6); Phosphorus 3.9 mg/dL (2.5-4.9)
--- NOTE | 2016-12-31 06:43 | PCM.PHAPRO ---
Progress TPN Management: -Day 4 of TPN for pt with duodenal stricture -to OR tomorrow -electrolytes have remained stable -Plan: no changes in TPN today formula for this evening: PARENTERAL NUTRITION ORDERS 31-Dec-16 Standard Hang Time: 2100 Substrates Total kcal: 835 AMINO ACIDS 40 g DEXTROSE 125 g Total Volume (mL): 1750 LIPIDS 25 g Sterile Water for Injection QS mL To Infuse Over (hrs): 24 Total Volume 1750 mL At at a rate of (mL/hr): 73 Additives Sodium Chloride 60 mEq "typical" daily requirements Sodium Acetate 30 mEq Sodium 50-120mEq Potassium Chloride 70 mEq Potassium 60-120mEq Potassium Phosphate 20 mEq Phosphate 20-40mEq Calcium Gluconate 12 mEq Magnesium 8-32mEq Magnesium Sulfate 6 mEq Calcium 9-22mEq Acetate* 80-120mEq Chloride* 80-120mEq Regular Insulin 5 units *Depending on acid-base status Famotidine mg Multivitamins 1 std dose Insulin Regimen Trace Elements 1 std dose none Thiamine mg Regular Low Intensity Subcut x Folic Acid mg Regular Medium Intensity Subcut Ascorbic Acid mg Regular High Intensity Subcut Regular Insulin Infusion Other: Shreya Morales [facility] Dec 31, 2016 06:43
[2016-12-31] MEDS: Pantoprazole 4 mg/mL 10 mL Inj IVPUSH SCH ×2 (09:13→17:37)
--- NOTE | 2016-12-31 09:31 | PCM.PNMED ---
Subjective Date of Service Dec 31, 2016 Subjective Patient was seen and examined at bedside today. Patient denies any chest pain, shortness of breath, nausea, vomiting, diarrhea. Patient stated she complains of having the feeling that she had a bowel movement however she has not been able to have one. Patient has also been anxious secondary to the surgical procedure that she is going to have tomorrow. Overnight events: None Exam Vital Signs Vital Sign - Last Date Time Temp Pulse Resp B/P Pulse Ox O2 Delivery O2 Flow Rate FiO2 12/31/16 05:03 36.6 117 16 125/71 96 Room Air Intake and Output 12/30/16 12/30/16 12/31/16 Cumulative From/Thru 15:00 23:00 07:00 12/25/16 10:28 - 12/31/16 06:22 Intake Total 1375 ml 1200 ml 88347 ml Output Total 1035 ml 550 ml 76153 ml Balance 340 ml 650 ml -2811 ml Intake Oral 0 ml 0 ml 1000 ml IV Total 382 ml 480 ml 7963 ml TPN/PPN 993 ml 720 ml 4036 ml Output Urine Total 300 ml 500 ml 37458 ml Gastric Drainage Total 735 ml 50 ml 4385 ml # Voids 5 # Bowel Movements 0 Exam Physical Exam: GEN: Patient was awake, alert, responding appropriately to questions HEENT: Pupils equal round and reactive to light, extraocular eye muscles intact , Neck soft supple, trachea midline, nomocephalic/atraumatic, NG tube in place CV: +S1/S2, regular rate and rhythm, no murmurs auscultated Respiratory: CTAB, no wheezes, rales, rhonchi GI: +bowel sounds x4, soft, compressible, mild tenderness to palpation in the right lower quadrant EXT: no clubbing, cyanosis, edema Neuro: Cranial nerves II-XII grossly intact Psych: mood and affect were appropriate IVs and Medications Medications Reviewed: Medications were reviewed in detail Lab and Diagnostics Result Diagram: 12/27/16 0301 12/31/16 0500 X-Rays, CTs and MRIs PROCEDURE: CT ABDOMEN WITH CONTRAST IMPRESSION: 1. Distended gastric lumen, consistent with the given history of duodenal obstruction. 2. Hepatic steatosis. 3. 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 Dictated by: Amrik Mancera M.D. on 12/26/2016 at 21:20 Approved by: Amrik Mancera M.D. on 12/26/2016 at 21:23 PROCEDURE: X-RAY CHEST ONE VIEW, PORTABLE IMPRESSION: 1. Indistinct bandlike opacity in the left lung apex may represent developing consolidation or atelectasis. Dictated by: Roel Thompson M.D. on 12/25/2016 at 19:43 . 12-lead ECG 12/25/16 at 11:25 from multi focal atrial rhythm, [address] depressions V3-5, conduction intervals normal Assessment & Plan 76-year-old female with a small bowel obstruction. 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, present on admission -NG tube in place on continuous suction -Gastrojejunal bypass is scheduled for tomorrow -Nothing by mouth -Surgery following Protein caloric deficiency malnutrition, present on admission -Continue TPN -We will consider transitioning patient to enteral feeding status post surgical procedure Hyponatremia, present on admission (resolved) Acute kidney injury, present on admission (resolved) Metabolic alkalosis (resolved) SIRS criteria, present on admission, (resolved) Hyperglycemia, acute, no history of type II diabetes -Improved glucose is now in no 100s -Follow up hemoglobin A1c Venous thromboembolism prophylaxis with Lovenox Disposition: Patient is currently medically stable and will go for surgical procedure tomorrow. The patient is currently anxious secondary to having this procedure done. Continue to talk with the patient and explained the surgical procedure in order to help keep the patient calm at this time I do not want to start any antianxiety medications. The patient's daughter was in the room with her today and present for physical exam all questions were answered. GI Prophylaxis: Proton Pump Inhibitor VTE Prophylaxis: Sub-Q Enoxaparin VTE Mechanical Devices: Intermittant Pneumatic CD Resuscitation Status: CPR: Attempt Resuscitation Anupama Dinero DO Dec 31, 2016 09:31
[2016-12-31] MEDS ORDERED: 0.9% Sodium Chloride 250 ML ONE (11:05)
[2016-12-31] MEDS: Acetaminophen IV 1,000 mg IV PRN ×3 (11:08→21:16)
[2016-12-31 12:04] VITALS: BP 135/69; PULSE 91; RESP 16; O2SAT 97
--- NOTE | 2016-12-31 13:15 | PROG NOTE ---
[address] [address] PROGRESS NOTE PATIENT: NEMESIO MCCONNELL : 1940 MR#: [id number] ADMIT: 12/25/2016 JOB ID: [id number] DATE: 12/31/2016 Last night, I was contacted regarding concerns that she might have a leak from her Groshong catheter. I was told that there was expressible serous fluid from around the Groshong catheter. I was under the impression after discussion last night with the nurse that the only thing that was infusing was her TPN, and therefore, I discounted the possibility of a leak. However, this morning on examination, I see that she has a dual-lumen catheter with one lumen having a saline infusion. On inspection, her catheter site is without infection and I cannot express much fluid out, but I believe that there was a serous leak around there. I think what we should do is hold the saline infusion in the one port, continue her TPN as there is no sign of that leaking out, and later today, I will re-inspect the area, including possibly injecting with methylene blue.
[2016-12-31 20:58] VITALS: BP 103/75; PULSE 86; RESP 18; O2SAT 97
[2016-12-31] MEDS: Total Parenteral Nutrition 1 BAG IV SCH (21:00)
[2016-12-31 21:03] VITALS: BP 145/83; PULSE 96; RESP 16; O2SAT 98
[2017-01-01] MEDS: Insulin REGULAR SS Low-Dose SUBQ SCH ×4 (02:30→20:22)
[2017-01-01] MEDS ORDERED: Lactated Ringer's 1,000 ML IV ONE (05:00)
[2017-01-01 05:32] VITALS: BP 159/82; PULSE 96; RESP 16; O2SAT 97
[2017-01-01 05:40] LABS: Mean Corpuscular Hemoglobin 32.1 pg (27.0-35.0); Mean Corpuscular Volume 94.9 fL (81-100)
[2017-01-01] MEDS ORDERED: CeFAZolin Inj 3 GM in Dextrose 5% Minibag Plus 50 ML IV SCH (06:00)
[2017-01-01] MEDS ORDERED: CeFAZolin Inj 2 GM in IV Premix 1 EACH IV SCH (06:00)
[2017-01-01 06:28] LABS: Magnesium 2.1 mg/dL (1.6-2.6)
[2017-01-01] MEDS: Pantoprazole 4 mg/mL 10 mL Inj IVPUSH SCH ×2 (07:52→15:43)
--- NOTE | 2017-01-01 10:04 | PCM.PNSURG ---
Subjective Visit Information: Reason for Visit Low Sodium, Low Potassium, Presistent Vomiting Surgery/Surgery Date LAP W/GAS. ANASTOMOSIS 01/01/17 Post-Op Day # Date of Admission: Dec 25, 2016 at 14:51 Hospital Day # Subjective: Groshong catheter with leak from one lumen, the other is being used. ST depressions were seen by Dr. Sanchez on pre-anesthesia review of chart. Cardiology consulted. Echo and stress test recommended. Pt otherwise stable, NG output high as expected, on TPN. Objective Vital Sign- Last 8 Hours Date Time Temp Pulse Resp B/P Pulse Ox O2 Delivery O2 Flow Rate FiO2 01/01/17 05:32 36.6 96 16 159/82 97 Room Air Intake and Output- Last 8 Hour 01/01/17 Cumulative From/Thru 07:00 12/25/16 10:28 - 01/01/17 06:52 Intake Total 1289 ml 83080 ml Output Total 1300 ml 42901 ml Balance -11 ml -2583 ml Intake Oral 0 ml 1100 ml IV Total 481 ml 8796 ml TPN/PPN 808 ml 5781 ml Output Urine Total 1000 ml 43976 ml Gastric Drainage Total 300 ml 4835 ml # Voids 5 # Bowel Movements 0 General: Alert, Cooperative, No Acute Distress, Other (NG in place with green output.) Result Diagram: 01/01/17 0520 01/01/17 0520 Assessment & Plan Impression 76yof with benign duodenal obstruction. She was scheduled for surgery today but it is delayed for cardiac workup. Problems: Plan Consider replacement of Groshong catheter. Await results of cardiac workup. Surgery is deferred for now. VTE Prophylaxis: Sub-Q Enoxaparin Resuscitation Status: CPR: Attempt Resuscitation Cady Handley MD January 01, 2017 10:04
--- NOTE | 2017-01-01 12:11 | DRSVH ---
[facility] [address] [place] [address] Echocardiogram Report Name: NEMESIO MCCONNELL LStudy Date: 01/01/2017 Paulina ht: 66 in Hospital Exam Location: [facility] ht: 111 lb Gender: Female BSA: 1.6 m2 : 1940 Age: 76 yrs BP: 159/82 mmHg Reason For Study: Hypertension Performed By: Bree Garvey Referring Physician: OREN MCMAHON Interpretation Summary Normal left ventricle size with hyperdynamic function. The ejection fraction is 65-70%. Grade I diatolic dysfunction. Mild aortic valve sclerosis. Mild to moderate mitral regurgitation. Mild tricuspid regurgitation. Procedure: A two-dimensional transthoracic echocardiogram with color flow and Doppler was performed. The study quality was technically adequate. There is no prior echocardiogram noted for this patient. The heart rate ranged between 94-97 bpm during the study. Left Ventricle: The left ventricle is normal in size. Proximal septal thickening is noted. The left ventricle is hyperdynamic. The ejection fraction is estimated to be 65-70%. There are no focal wall motion abnormalities. Assessment of diastolic parameters indicates a relaxation abnormality of the left ventricle, consistent with normal filling pressures. Right Ventricle: The right ventricle is normal in size, thickness and function. Atria: The left atrial size is normal. Right atrial size is normal. Mitral Valve: The mitral valve is normal. There is a flat closure plane of the the mitral valve leaflets. There is mild to moderate mitral regurgitation. Aortic Valve: The aortic valve is trileaflet. The aortic valve opens well. There is mild aortic valve sclerosis. No aortic regurgitation is present. Tricuspid Valve: The tricuspid valve leaflets are thin and pliable. There is mild tricuspid regurgitation. Right ventricular systolic pressure is estimated to be 26 mmHg plus the clinically estimated CVP which cannot be estimated on this exam. Pulmonic Valve: The pulmonic valve is not well seen, but is grossly normal. There is trace pulmonic regurgitation. Great Vessels: The aortic root is normal size. The dimensions of the ascending aorta are normal. The inferior vena cava was not visualized. Pericardium/ Pleura There is no pericardial effusion. There is no pleural effusion. MMode/2D Measurements & Calculations LVIDd: 4.2 cm LA dimension: 2.6 cm RA long axis Ao root diam LVIDs: 2.6 cm FS: 38.9 % LA A2 area: 16.8 cm RA area Aortic Jxn: 2.4 cm IVSd: 0.98 cm LA A4 area: 17.2 cm asc Aorta Diam LVPWd: 0.76 cm LA length (vol) : 11.9 cm RA vol Ao Arch Diam (Prox LA vol: 46.1 ml : 26.5 ml Trans): 2.5 cm LA vol index RA : 16.8 mm/ : 29.3 ml/m2 RVDd major : 5.2 cm LV shelley. diameter/BSA LV sys. diameter/BSA RVD1 (basal) RVD2 (mid): 3.5 cm (cm/m^2): 2.7 (cm/m^2): 1.6 Doppler Measurements & Calculations LVOT Max Pepe MV E max pepe MV E/A: 0.67 TR max pepe : 141.5 cm/sec : 60.0 cm/sec Med Peak E' Pepe : 253.9 cm/sec MV A max pepe TR max PG : 89.6 cm/sec E/E' med: 15.9 : 25.8 mmHg MV P1/2t: 58.7 msec Lat Peak E' Pepe PA V2 max MR ERO: 0.20 cm2 : 75.6 cm/sec E/E' lat: 10.4 PA mean PG E/e' average PA Accel Time MV A dur: 0.12 sec: 0.12 sec MV dec time MV P1/2t max pepe LV V1 max PG MR flow rate : 0.19 sec : 144.0 cm3/sec MVA(P1/2t): 3.7 cm2 LV V1 VTI: 22.4 cmMR PISA radius PA V2 mean : 49.4 cm/sec Electronically signed by: Oren Green on Reading Physician:01/01/2017 12:10 PM
[2017-01-01 12:47] VITALS: BP 141/66; PULSE 104; RESP 18; O2SAT 98
--- NOTE | 2017-01-01 13:16 | PCM.PNMED ---
Subjective Date of Service January 01, 2017 Subjective Patient was seen and examined today. The patient stated that she was doing well today and ready for surgery. Patient denied any chest pain, SOB, n/v/d. Patient was to have surgery today; however, anesthesiology wanted the patient to have cardiac clearance due to a previous abnormal EKG. Her current EKG and troponin are negative and cardiology wants to do a stress test prior to surgery. The patient's surgery has been postponed to Sunday. Exam Vital Signs Vital Sign - Last Date Time Temp Pulse Resp B/P Pulse Ox O2 Delivery O2 Flow Rate FiO2 01/01/17 12:47 37.0 104 18 141/66 98 Room Air Intake and Output 12/31/16 12/31/16 01/01/17 Cumulative From/Thru 15:00 23:00 07:00 12/25/16 10:28 - 01/01/17 06:52 Intake Total 210 ml 1179 ml 1289 ml 12083 ml Output Total 1150 ml 1300 ml 32607 ml Balance 210 ml 29 ml -11 ml -2583 ml Intake Oral 100 ml 0 ml 1100 ml IV Total 210 ml 142 ml 481 ml 8796 ml TPN/PPN 937 ml 808 ml 5781 ml Output Urine Total 1000 ml 1000 ml 74082 ml Gastric Drainage Total 150 ml 300 ml 4835 ml # Voids 5 # Bowel Movements 0 Exam Physical Exam: GEN: Patient was awake, alert, responding appropriately to questions HEENT: Pupils equal round and reactive to light, extraocular eye muscles intact , Neck soft supple, trachea midline, nomocephalic/atraumatic, NG tube in place CV: +S1/S2, regular rate and rhythm, no murmurs auscultated Respiratory: CTAB, no wheezes, rales, rhonchi GI: +bowel sounds x4, soft, compressible, nontender to palpation EXT: no clubbing, cyanosis, edema Neuro: Cranial nerves II-XII grossly intact Psych: mood and affect were appropriate IVs and Medications Medications Reviewed: Medications were reviewed in detail Lab and Diagnostics Result Diagram: 01/01/1751901/01/17519 X-Rays, CTs and MRIs PROCEDURE: CT ABDOMEN WITH CONTRAST IMPRESSION: 1. Distended gastric lumen, consistent with the given history of duodenal obstruction. 2. Hepatic steatosis. 3. 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 Dictated by: Amrik Mancera M.D. on 12/26/2016 at 21:20 Approved by: Amrik Mancera M.D. on 12/26/2016 at 21:23 PROCEDURE: X-RAY CHEST ONE VIEW, PORTABLE IMPRESSION: 1. Indistinct bandlike opacity in the left lung apex may represent developing consolidation or atelectasis. Dictated by: Roel Thompson M.D. on 12/25/2016 at 19:43 . 12-lead ECG 12/25/16 at 11:25 from multi focal atrial rhythm, [address] depressions V3-5, conduction intervals normal Assessment & Plan 76-year-old female with a small bowel obstruction. 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, present on admission -NG tube in place on continuous suction -Gastrojejunal bypass is scheduled for Sunday -Ice chips only -Continue TPN -Surgery following Cardiac clearance -EKG today NSR (reviewed by me) -Troponin negative -Cardiology to take the patient for a stress test Protein caloric deficiency malnutrition, present on admission -Continue TPN -We will consider transitioning patient to enteral feeding status post surgical procedure Hyponatremia, present on admission (resolved) Acute kidney injury, present on admission (resolved) Metabolic alkalosis (resolved) SIRS criteria, present on admission, (resolved) Hyperglycemia, acute, no history of type II diabetes -Improved glucose is now in no 100s -Hemoglobin A1c pending Venous thromboembolism prophylaxis with Lovenox Disposition: Patient is currently scheduled to have her surgery on Sunday pending cardiac clearance. GI Prophylaxis: Proton Pump Inhibitor VTE Prophylaxis: Sub-Q Enoxaparin VTE Mechanical Devices: Intermittant Pneumatic CD Resuscitation Status: CPR: Attempt Resuscitation Anupama Dinero DO January 01, 2017 13:16
--- NOTE | 2017-01-01 14:51 | CONS ---
[address] [address] CARDIOLOGY INPATIENT CONSULTATION REPORT PATIENT: NEMESIO MCCONNELL : 1940 MR#: [id number] ADMIT: 12/25/2016 JOB ID: [id number] DATE OF SERVICE: 01/01/2017 This is a very pleasant, 76-year-old lady, who presented to [facility] on December 25, 2016, with abdominal pain, nausea and vomiting, slowly progressive over the past two months, and found to have benign duodenal obstruction. She is on TPN and she has NG-tube in place. She was scheduled for surgery today, but it was delayed because the anesthesiologist was concerned about abnormal EKG and Cardiology consultation was requested. The patient does not have any documented coronary artery disease history. She has a history of hypertension, and hypothyroidism, and dementia. There are family members, daughter and son who are in the room, and they provide also information about the patient. The patient denies any history of any chest discomfort, or dyspnea on exertion, or palpitations. She has not been having symptoms of nocturnal pulmonary congestion. Generally, does not have history of palpitations, presyncope or syncope. As I noted above, she was admitted with abdominal pain, nausea, vomiting, which was progressing over past two months, and on admission, she was severely hypokalemic with a potassium level of 2.2. She also was hyponatremic with sodium level 123. She had signs of contraction alkalosis. Also, she had leukocytosis. On admission on EKG, she was in sinus tachycardia with heart rate 95 beats per minute and she PACs were noted. Telemetry reports were retrieved today because currently she is not on telemetry and it showed that she was tachycardic with sinus tachycardia and short SVT runs with heart rates reaching up to 130s, likely from her severe electrolyte disbalance. On admission her blood pressure was 130/74, but generally during her stay in the hospital, she has been periodically hypertensive. On EKG from December 25, 2016, some ST sagging diffusely in different leads was noted. All of these changes on EKG could have been because of severe electrolyte disbalance. Her EKG from January 01, 2017, basically looks normal with sinus rhythm, heart rate 94 beats per minute, with normalization of ST segments and no ischemic changes. MEDICATIONS AT HOME: 1. Levothyroxine 50 mcg daily. 2. Lisinopril 2.5 mg daily. 3. Pantoprazole 40 mg twice a day. 4. Ranitidine 150 mg at bedtime. 5. She is also on baby aspirin 85 mg daily. ROS: The twelve point of ROS are negative except the ones mentioned in HPI. PAST MEDICAL HISTORY: Dementia. Hypothyroidism. Hypertension. SOCIAL HISTORY: She denies history of smoking cigarettes or tobacco. She drinks one can of beer every day and used to drink one glass of wine every day. No recreational drug use. She is not sure about family history of coronary disease. EXAMINATION: Vital signs: Temperature 36.6. Pulse 96 beats per minute. Respiratory rate 16 per minute. Blood pressure 159/82. Saturation 97% on room air. General: No acute distress, she is comfortable lying in the bed. HEENT: Sclerae anicteric. Oral mucosa moist. Neck: Supple, no thyromegaly. Pulmonary: Normal breathing sounds bilaterally. No crackles, no wheezing. Cardiac: Regular rate and rhythm. S1, S2 normal. No murmur appreciated. JVP is not elevated. Abdomen: Nontender with palpation. Extremity: No lower extremity edema. Neuro: Alert and talking normally but has some memory issues, no gross abnormalities. LABS: Labs from January 01, 2017 shows sodium 142, potassium 4.5, chloride 102, carbon dioxide 24, BUN 7, creatinine 0.35, calcium 8.5, magnesium 2.1. Total bilirubin 0.5, AST 21, ALT 22, alkaline phosphatase 58. Troponin less than 0.01. White blood cells 6.3, red blood cells 3.92, hemoglobin 12.6, hematocrit 37.2, platelets 221. ASSESSMENT AND PLAN: This is a 76-year-old lady with dementia and no prior documented history of coronary artery disease, with a history of hypertension, hypothyroidism, who was admitted after several weeks of dyspepsia, nausea and vomiting, and found to have benign duodenal obstruction. Planned to do surgery today, which is on hold because of some changes on EKG. # Abnormal EKG on admission - normalized after electrolytes normalization On EKG today, from January 01, 2017, it looks normal with a sinus rhythm, no ischemic ST changes. Her troponin was negative. Echo, which was done today, showed preserved left ventricular function with ejection fraction 65% to 70% and grade 1 diastolic dysfunction, mild aortic valve sclerosis, also mild to moderate mitral regurgitation, mild tricuspid regurgitation. As I noted above on admission, the patient had severe electrolyte disbalance likely secondary to her GI issues. She was severely hyponatremic and hypokalemic, and she had contraction alkalosis. All of these resolved. She had negative trop. Does not have personal hx of CAD Would recommend to proceed with Lexiscan nuclear stress test. If it is low risk study, she then can proceed with surgery then. #Hypertension. She is still hypertensive periodically. She is not on any hypertensive pills because she has an NG-tube and she is on TPN. Since she cannot take pills, would recommend to keep her on hydralazine 10 mg IV every 8 hours for better blood pressure control. #Hypothyroidism. The case and management was discussed and coordinated with [employer] Dr. Templeton. CONI
--- NOTE | 2017-01-01 16:14 | DRSVH ---
PROCEDURE: 1 DAY PHARMACOLOGICAL STRESS TEST Rest and pharmacological stress myocardial perfusion SPECT with gated imaging and ejection fraction RADIOPHARMACEUTICAL: 25.8 mCi Tc-99m tetrafosmin IV at rest and 8.1 mCi Tc-99m tetrafosmin IV at peak effect of pharmacological stress. A asc-vth-lbwxaojz was performed. INDICATIONS: abnormal EKG TECHNIQUE: Radiopharmaceutical was injected at peak stress test, and also at rest. SPECT images wer e obtained. SPECT myocardial perfusion images were displayed in short axis, horizontal long axis, an d vertical long axis views. Gated images were reviewed using YES.TAPQUANT software. COMPARISON: None. CARDIAC STRESS: A pharmacologic stress test was performed under the supervision of an attending staff, using an infus ion of 5.0 mL 0.4 mg Lexiscan. Hemodynamic data: There is normal blood pressure and heart rate response to pharmacologic stress. Symptoms: The patient denied anginal chest pain. Aminophylline: 4 mL 100 mg EKG: No diagnostic changes of ischemia; no ectopy. FINDINGS: Raw data: There is good myocardial uptake of radiotracer. No significant motion artifacts. Left ventricle function: Gated images demonstrate normal left ventricular wall thickening. No segme ntal wall motion abnormalities. No transient ischemic dilation. Left ventricle resting end diastoli c volume is 26 mL. Left ventricle stress ejection fraction is 97%; normal range is above 45%. Myocardial perfusion: There is normal distribution of activity in the right and left ventricular marsha cardium. No fixed or reversible perfusion defects. IMPRESSION: 1. No stress perfusion defects to indicate ischemia. 2. No EKG changes of ischemia. 3. Ejection fraction 97%. 4. Likely hyperdynamic left ventricle. PQRS ATTESTATIONS: Measure 322 - Is this imaging test primarily performed on a low-risk surgery patient for preoperative evaluation within 30 days preceding their low-risk non-cardiac surgery? Low-risk surgery is defined as cardiac or myocardial infarction less than 1%, including (but not limited to) endoscopic pr ocedures, superficial procedures, cataract surgery, and excisional breast surgery: Answer: No Measure 323 - Is this imaging test performed primarily for the monitoring of an asymptomatic patient who had percutaneous coronary intervention on the visit date or within 2 years of the visit date? An swer: No Measure 324 - Is this imaging test performed primarily for the initial detection and risk assessment on an asymptomatic, low coronary heart disease patient? Low CHD risk definition = clinicians should consider the maximum number of available patient factors used to estimate risk based on [place] (A TP III criteria), typically age, gender, diabetes, smoking status, and use of blood pressure medicati on, and integrate age appropriate estimates for missing elements, such as LDL or standard blood press ure. Answer: No Dictated by: Milli Del Angel M.D. on 01/01/2017 at 16:11 Approved by: Milli Del Angel M.D. on 01/01/2017 at 16:12
[2017-01-01 19:20] VITALS: BP 130/80; PULSE 97; RESP 18; O2SAT 93
--- NOTE | 2017-01-01 19:51 | CONS ---
[address] [address] CONSULTATION REPORT PATIENT: NEMESIO MCCONNELL : 1940 MR#: [id number] ADMIT: 12/25/2016 JOB ID: [id number] DATE OF SERVICE: 01/01/2017 REQUESTED BY: Dr. Sanchez. REASON FOR EVALUATION: Abnormal EKG. I saw and examined the patient. Please see Frank Miner's note for details. IMPRESSION: 1. Transient ST depression, secondary to electrolyte abnormality. 2. Mild to moderate mitral regurgitation. 3. Hypertension. 4. History of hypothyroidism. PLAN: I explained to the patient and her family that her EKG abnormality on admission is due to electrolyte abnormality. It has normalized after her electrolytes were corrected. There is no wall motion abnormality on echocardiogram and no evidence of myocardial ischemia or infarction on Lexiscan sestamibi. She may undergo abdominal surgery with low risk for perioperative cardiac event. Thank you for allowing me to participate in her care. CONI
[2017-01-01] MEDS: Ondansetron 2 mg/mL 2 mL Inj IVPUSH PRN (20:15)
[2017-01-01] MEDS: Total Parenteral Nutrition 1 BAG IV SCH (20:31)
[2017-01-02] MEDS: Diphen-Lido-Mylanta 1:1:1 Susp 15 mL Syringe PO PRN (01:53)
[2017-01-02] MEDS: Insulin REGULAR SS Low-Dose SUBQ SCH ×4 (02:30→20:30)
[2017-01-02 05:37] VITALS: BP 136/78; PULSE 91; RESP 17; O2SAT 94
[2017-01-02 07:07] LABS: Magnesium 2.3 mg/dL (1.6-2.6); Phosphorus 4.1 mg/dL (2.5-4.9)
[2017-01-02] MEDS: Pantoprazole 4 mg/mL 10 mL Inj IVPUSH SCH ×2 (07:52→15:31)
--- NOTE | 2017-01-02 09:20 | PCM.PNSURG ---
Subjective Visit Information: Reason for Visit Low Sodium, Low Potassium, Presistent Vomiting Surgery/Surgery Date LAP W/GAS. ANASTOMOSIS 01/01/17 Post-Op Day # Date of Admission: Dec 25, 2016 at 14:51 Hospital Day # Subjective: Stable overnight. Stress test and echo essentially normal, low cardiac risk for surgery per Dr. Lo. ZARAGOZA in place. She appears much stronger compared to a week ago. Objective Vital Sign- Last 8 Hours Date Time Temp Pulse Resp B/P Pulse Ox O2 Delivery O2 Flow Rate FiO2 01/02/17 05:37 36.6 91 17 136/78 94 Room Air Intake and Output- Last 8 Hour 01/02/17 Cumulative From/Thru 07:00 12/25/16 10:28 - 01/02/17 05:46 Intake Total 1106 ml 31745 ml Output Total 650 ml 96963 ml Balance 456 ml -2529 ml Intake Oral 50 ml 1200 ml IV Total 231 ml 9507 ml TPN/PPN 825 ml 7074 ml Output Urine Total 350 ml 57012 ml Gastric Drainage Total 300 ml 5735 ml # Voids 5 # Bowel Movements 0 0 General: Alert, Cooperative, No Acute Distress Result Diagram: 01/01/17 0520 01/02/17 0548 Assessment & Plan Impression Duodenal stricture, benign. Problems: Plan Surgery tomorrow, to include laparotomy with jejunostomy and gastroenteric anastomosis. VTE Prophylaxis: Sub-Q Enoxaparin Resuscitation Status: CPR: Attempt Resuscitation Cady Handley MD January 02, 2017 09:20
[2017-01-02] MEDS ORDERED: 0.9% Sodium Chloride 250 ML ONE (11:30)
[2017-01-02 11:59] VITALS: BP 121/66; PULSE 87; RESP 18; O2SAT 97
--- NOTE | 2017-01-02 13:26 | DRSVH ---
PROCEDURE: X-RAY CHEST ONE VIEW, PORTABLE ([id number]) INDICATIONS: NGT placement TECHNIQUE: One view of the chest was acquired. COMPARISON: [facility], CR, XR CHEST 1VW (PORTABLE), 12/28/2016, 16:53. FINDINGS: Surgical changes and devices: Stable positioning of right IJ PICC and nasogastric tube with the tube tip extending beyond the GE junction. Lungs and pleura: No pleural effusions or pneumothorax. Lungs are clear. Mediastinum: Mediastinal contours appear normal. Heart size is normal. Bones and chest wall: No suspicious bony lesions. Overlying soft tissues appear unremarkable. IMPRESSION: Stable position of right IJ PICC and nasogastric tube. Dictated by: Ramiro Duvall RRA Interpreted: Burt Gagnon MD on 01/02/2017 at 13:25 Transcribed by: YORDAN on 01/02/2017 at 13:26 Approved by: Burt Gagnon M.D. on 01/02/2017 at 14:48
--- NOTE | 2017-01-02 14:12 | PCM.PNMED ---
Subjective Date of Service January 02, 2017 Subjective Patient was seen and examined at bedside today. Patient denies any chest pain, shortness of breath, nausea, vomiting, diarrhea. Patient's and daughter were both in the room during the exam today. There is some concerns about the patient's current Groshong leaking and may need to be replaced. Overnight events: Patient pulled out her NG tube overnight and it had to be replaced. Exam Vital Signs Vital Sign - Last Date Time Temp Pulse Resp B/P Pulse Ox O2 Delivery O2 Flow Rate FiO2 01/02/17 11:59 36.5 87 18 121/66 97 Room Air Intake and Output 01/01/17 01/01/17 01/02/17 Cumulative From/Thru 15:00 23:00 07:00 12/25/16 10:28 - 01/02/17 05:46 Intake Total 998 ml 1106 ml 62592 ml Output Total 1400 ml 650 ml 69812 ml Balance -402 ml 456 ml -2529 ml Intake Oral 50 ml 50 ml 1200 ml IV Total 480 ml 231 ml 9507 ml TPN/PPN 468 ml 825 ml 7074 ml Output Urine Total 800 ml 350 ml 96581 ml Gastric Drainage Total 600 ml 300 ml 5735 ml # Voids 5 # Bowel Movements 0 0 Exam Physical Exam: GEN: Patient was awake, alert, responding appropriately to questions HEENT: Pupils equal round and reactive to light, extraocular eye muscles intact , Neck soft supple, trachea midline, nomocephalic/atraumatic, NG tube in place CV: +S1/S2, regular rate and rhythm, no murmurs auscultated Respiratory: CTAB, no wheezes, rales, rhonchi GI: +bowel sounds x4, soft, compressible, nontender to palpation EXT: no clubbing, cyanosis, edema Neuro: Cranial nerves II-XII grossly intact Psych: mood and affect were appropriate IVs and Medications Medications Reviewed: Medications were reviewed in detail Lab and Diagnostics Result Diagram: 01/01/17 0501/02/17 0548 X-Rays, CTs and MRIs PROCEDURE: CT ABDOMEN WITH CONTRAST IMPRESSION: 1. Distended gastric lumen, consistent with the given history of duodenal obstruction. 2. Hepatic steatosis. 3. 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 Dictated by: Amrik Mancera M.D. on 12/26/2016 at 21:20 Approved by: Amrik Mancera M.D. on 12/26/2016 at 21:23 PROCEDURE: X-RAY CHEST ONE VIEW, PORTABLE IMPRESSION: 1. Indistinct bandlike opacity in the left lung apex may represent developing consolidation or atelectasis. Dictated by: Roel Thompson M.D. on 12/25/2016 at 19:43 . 12-lead ECG 12/25/16 at 11:25 from multi focal atrial rhythm, [address] depressions V3-5, conduction intervals normal Assessment & Plan 76-year-old female with a small bowel obstruction. 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 Handley) Cardiac clearance -Troponin negative -Cardiac stress test: Showed no ischemic changes and no EKG changes during the stress test. Ejection fraction 97% and hyperdynamic left ventricle. -At this time the patient is currently scheduled for surgery tomorrow afternoon. Protein caloric deficiency malnutrition, present on admission -Continue TPN -Replace Groshong catheter -We will consider transitioning patient to enteral feeding status post surgical procedure Hyponatremia, present on admission (resolved) Acute kidney injury, present on admission (resolved) Metabolic alkalosis (resolved) SIRS criteria, present on admission, (resolved) Hyperglycemia, acute, no history of type II diabetes -Improved glucose is now in no 100s -Hemoglobin A1c pending Venous thromboembolism prophylaxis with Lovenox Disposition: Patient is currently scheduled to have her surgery tomorrow afternoon. Today's case was discussed with Dr. Fields from general surgery who currently has his patient scheduled for tomorrow afternoon however there were some concerns as the patient's Groshong catheter is currently leaking that it be replaced. I called and talked with Dr. Mitchell (interventional radiology) who states that she will take a look at the catheter to see if he needs to be replaced and then will potentially replace it either today or in conjunction with the patient's surgery tomorrow. GI Prophylaxis: Proton Pump Inhibitor VTE Prophylaxis: Sub-Q Enoxaparin VTE Mechanical Devices: Intermittant Pneumatic CD Resuscitation Status: CPR: Attempt Resuscitation Anupama Dinero DO January 02, 2017 14:12
[2017-01-02] MEDS ORDERED: diphenhydrAMINE 25 mg Capsule PO PRN (14:25)
--- NOTE | 2017-01-02 15:24 | PCM.PHAPRO ---
Progress TPN Management: -electrolytes remain stable -macronutrients have been advanced to goal: AA 80gm, Dextrose 250gm, Lipids 50gm -pt to OR tomorrow morning -Plan: formula for this evening: PARENTERAL NUTRITION ORDERS 6 02-Jan-17 Standard Hang Time: 2100 Substrates Total kcal: 1670 AMINO ACIDS 80 g DEXTROSE 250 g Total Volume (mL): 1650 LIPIDS 50 g Sterile Water for Injection QS mL To Infuse Over (hrs): 24 Total Volume 1650 mL At at a rate of (mL/hr): 69 Additives Sodium Chloride 60 mEq "typical" daily requirements Sodium Acetate 30 mEq Sodium 50-120mEq Potassium Chloride 50 mEq Potassium 60-120mEq Potassium Phosphate 20 mEq Phosphate 20-40mEq Calcium Gluconate 12 mEq Magnesium 8-32mEq Magnesium Sulfate 8 mEq Calcium 9-22mEq Acetate* 80-120mEq Chloride* 80-120mEq Regular Insulin 5 units *Depending on acid-base status Famotidine mg Multivitamins 1 std dose Insulin Regimen Trace Elements 1 std dose none Thiamine mg Regular Low Intensity Subcut x Folic Acid mg Regular Medium Intensity Subcut Ascorbic Acid mg Regular High Intensity Subcut Regular Insulin Infusion Other: Shreya Morales [facility] January 02, 2017 15:24
[2017-01-02 19:45] VITALS: BP 129/75; PULSE 83; RESP 17; O2SAT 96
[2017-01-02] MEDS: Ondansetron 2 mg/mL 2 mL Inj IVPUSH PRN (20:37)
[2017-01-02] MEDS: Total Parenteral Nutrition 1 BAG IV SCH (21:00)
[2017-01-03] VITALS (14 sets, daily range): BP systolic 79–170; BP diastolic 40–85; PULSE 60–88; RESP 13–20; O2SAT 94–99
[2017-01-03] MEDS: Insulin REGULAR SS Low-Dose SUBQ SCH ×4 (02:30→20:30)
[2017-01-03] MEDS ORDERED: Rocuronium 10 mg/mL 5 mL Inj ONE (07:01)
[2017-01-03] MEDS ORDERED: fentaNYL-PF 50 mCg/mL 2 mL Inj ONE ×2 (07:01→18:24)
[2017-01-03] MEDS ORDERED: Neostigmine 1 mg/mL 10 mL Inj ONE (07:01)
[2017-01-03] MEDS ORDERED: Propofol 10,000 mCg/mL 20 mL Inj ONE (07:01)
[2017-01-03] MEDS ORDERED: Glycopyrrolate 0.2 MG/ML 1mL Inj ONE (07:01)
[2017-01-03] MEDS ORDERED: Succinylcholine Chloride 20 mg/mL 5 mL Inj ONE (07:01)
[2017-01-03] MEDS ORDERED: Ondansetron 2 mg/mL 2 mL Inj ONE (07:01)
[2017-01-03] MEDS ORDERED: Phenylephrine 10,000 mCg/mL Inj ONE (07:01)
[2017-01-03] MEDS: Pantoprazole 4 mg/mL 10 mL Inj IVPUSH SCH (08:59)
--- NOTE | 2017-01-03 10:46 | PCM.PNSURG ---
Subjective Visit Information: Reason for Visit Low Sodium, Low Potassium, Presistent Vomiting Surgery/Surgery Date LAP W/GAS. ANASTOMOSIS 01/01/17 Post-Op Day # Date of Admission: Dec 25, 2016 at 14:51 Hospital Day # Subjective: Stable overnight. Appears stronger daily while on TPN. Difficulty with NG tube , there is liquid output from the side port only despite flushing. Dr. Dle Angel spoke with pt and family yesterday regarding Groshong catheter replacement. Decision made to deal with it in the OR when pt is under an anesthetic in order to avoid a separate sedation in the setting of dementia. Objective Vital Sign- Last 8 Hours Date Time Temp Pulse Resp B/P Pulse Ox O2 Delivery O2 Flow Rate FiO2 01/03/17 05:43 37.3 87 17 132/79 96 Room Air Intake and Output- Last 8 Hour 01/03/17 Cumulative From/Thru 07:00 12/25/16 10:28 - 01/03/17 05:43 Intake Total 830 ml 59286 ml Output Total 600 ml 74750 ml Balance 230 ml -3093 ml Intake Oral 0 ml 1300 ml IV Total 100 ml 13430 ml TPN/PPN 730 ml 7804 ml Output Urine Total 600 ml 77310 ml Gastric Drainage Total 5815 ml # Voids 5 # Bowel Movements 0 0 General: Cooperative, No Acute Distress Abdomen: Soft Result Diagram: 01/01/17 0520 01/03/17 0455 Assessment & Plan Impression Obstructed duodenum from benign disease, surgery scheduled for today Problems: Plan NPO Probable d/c of Groshong in OR, I will ask anesthesia if a new line may be placed at that time. Epidural prior to laparotomy. I have spoken with the pt and family many times about the different surgical options, including antrectomy versus gastrojejunostomy, the various reconstructive options including Billroth I, Billroth II, and Dinah-en-Y. We have discussed the reasoning behind feeding tube placement. They are all in agreement. 20 minutes was spent on this patient visit today, greater than 50% in counseling and/or coordination of care. VTE Prophylaxis: Sub-Q Enoxaparin Resuscitation Status: CPR: Attempt Resuscitation Cady Handley MD January 03, 2017 10:46
--- NOTE | 2017-01-03 11:04 | PCM.PHAPRO ---
Progress TPN Management: -Day 7 of TPN -macronutrients at goal -electrolytes have remained stable -formula for this evening: PARENTERAL NUTRITION ORDERS 7 - Standard Hang Time: 2100 Substrates Total kcal: 1670 AMINO ACIDS 80 g DEXTROSE 250 g Total Volume (mL): 1650 LIPIDS 50 g Sterile Water for Injection QS mL To Infuse Over (hrs): 24 Total Volume 1650 mL At at a rate of (mL/hr): 69 Additives Sodium Chloride 60 mEq "typical" daily requirements Sodium Acetate 30 mEq Sodium 50-120mEq Potassium Chloride 40 mEq Potassium 60-120mEq Potassium Phosphate 10 mEq Phosphate 20-40mEq Calcium Gluconate 12 mEq Magnesium 8-32mEq Magnesium Sulfate 6 mEq Calcium 9-22mEq Acetate* 80-120mEq Chloride* 80-120mEq Regular Insulin 5 units *Depending on acid-base status Famotidine mg Multivitamins 1 std dose Insulin Regimen Trace Elements 1 std dose none Thiamine mg Regular Low Intensity Subcut x Folic Acid mg Regular Medium Intensity Subcut Ascorbic Acid mg Regular High Intensity Subcut Regular Insulin Infusion Other: Shreya Morales [facility] January 03, 2017 11:04
--- NOTE | 2017-01-03 12:49 | PCM.HPANE ---
Patient Data Date of Service: January 03, 2017 Surgeon Admitting Provider:Drew Hummel MD Attending Provider:Drew Hummel MD Primary Care Physician:Yaya Chavarria MD Other Provider: Reason for Visit Low Sodium, Low Potassium, Presistent Vomiting LOW SODIUM, LOW POTASSIUM, PRESISTENT VOMITING Ht/WT & BMI Height (Feet): 5 Height (Inches): 7.00 Weight (Kilograms): 50.500 Body Mass Index 18.00 Allergies Coded Allergies: Penicillins (Verified Allergy, Unknown, 12/25/16) Sulfa (Sulfonamide Antibiotics) (Verified Allergy, Unknown, 12/25/16) cefaclor (Verified Allergy, Unknown, 12/25/16) codeine (Verified Allergy, Unknown, 12/25/16) metronidazole (Verified Allergy, Unknown, 12/25/16) omeprazole (Verified Allergy, Unknown, 12/25/16) hydrocodone (Verified Adverse Reaction, Unknown, nausea, 12/25/16) Past Anesthesia History Anesthesia History: Denies:: Abnormal Airway, Anesthesia Reactions, Difficult Intubation Diabetes History Hx Diabetes?: No Current Bedside Blood Glucose: 85 MRSA MRSA: No Medications Reported Medications Acetaminophen 500 Mg [id number] Mg PO Q6H PRN For Pain 12/25/16 Tramadol 50 Mg Apeneg20 Mg PO Q6H PRN For Pain 12/25/16 Rivastigmine Patch (Exelon Patch)4.6 Mg Patch4.6 Mg TRANSDERM DAILY 12/25/16 Ranitidine 150 Mg [id number] Mg PO HS 12/25/[address] 40 Mg Tablet.dr40 Mg PO BID 12/25/16 Lisinopril 2.5 Mg Tablet2.5 Mg PO DAILY 12/25/16 Levothyroxine 50 Mcg Itwmuh84 Mcg PO DAILY 12/25/16 Aspirin Chew 81 Mg Chew81 Mg PO DAILY 12/25/16 History History of ENT Problems?: No HEENT History: Positive for:: Hearing Problem Denies:: Abnormal Airway Cataracts Difficult Intubation Dysphagia Glaucoma Sinus Problem TMJ Denture Type: None Teeth Condition: Within Normal Limits Hx of Heart Problems?: Yes Cardiovascular History: Positive for:: Peripheral Vascular Denies:: AICD Congestive Heart Failure Hypertension Valvular Heart Disease Hx of Respiratory Problem?: No Respiratory History: Denies:: Asthma COPD Chest Surgery Cough Dyspnea Emphysema Hemoptysis Oxygen Administration Pneumonia Pulmonary Embolism Tuberculosis Use of C-PAP Machine Use of Inhalers / NEBS Hx Neurologic Problems?: Yes Neurological History: Positive for:: Dementia Denies:: CVA Other Neurological Pertinent: dementia Hx of GI Problems?: No Other GI Pertinent History: recent nausea and vomiting in past 6 weeks Hx of Problems?: No Female Hx: Denies:: Currently Hx Musculoskeletal Problems?: No Hx of Psycho/Social Problems?: No Hx Surgeries?: Yes (C-SECTIONS, APPY) Hx Any Other Health Problems?: No History Blood Transfusions: Positive for:: Accept Blood Products? Denies:: Blood Transfusions Hx Diabetes: NoBedside Blood Glucose: 85 Hx Alcohol Use: Yes (Beer every day for dinner)Hx Substance Use: No Smoking Status: Unknown if Ever Smoker Have You Smoked inLast 12 mo: No Stop/Bang Treated for Sleep Apnea?: No Do You Have a CPAP Machine?: No S-Snoring: Do You Snore Loudly: No T-Tired: feel tired, fatigued: No O-Obsered: Observed not breath: No P-Blood Pressure: treated: Yes B- Body Mass Index > 35 kg/m2: No A- Age over 50: Yes N- Neck Large Circumference: No G- Gender Male: No JEANNIE Total Score: 2 JEANNIE Risk Assessment: Low Risk, <3 Yes Risk Assessment Category Category 1A: Patient has history of documented sleep apnea, and HAS NOT received any narcotic, sedative or anesthesia administration during this stay. Category 1B: Patient has history of documented sleep apnea, and HAS received any narcotic , sedative or anesthesia administration during this stay Category 2: Patient has SUSPECTED Obstructive Sleep Apnea, and HAS received any narcotic , sedative or anesthesia administration during this stay. Category 3: Patient has SUSPECTED Obstructive Sleep Apnea and HAS NOT received narcotic, sedative or anesthesia administration during this stay. Category 4: Outpatient in Procedural Areas with known sleep apnea or who screen positive for High Risk via the STOP/BANG questionnaire. Low Risk, <3 Yes Exam Exam Vital Signs Vital Signs Date Time Temp Pulse Resp B/P Pulse Ox O2 Delivery O2 Flow Rate FiO2 01/03/17 05:43 37.3 87 17 132/79 96 Room Air General Appearance: Alert, Cooperative, No Acute Distress, Other (Oriented only to person for me; pleasant cooperative) HEENT/AIRWAY: MP 2 Lungs: Clear to Auscultation, Normal Air Movement Heart: Exam Unremarkable, Regular Rate/Rhythm, No Murmurs/Rubs/Gallops Meds/Labs/Diagnostics Bedside Blood Glucose: 85 Labs Test 12/25/16 11:02 12/25/16 11:05 12/25/16 16:00 12/26/16 04:24 Thyroid Stimulating Hormone (TSH) 2.540uIU/mL (0.450-4.500) Lactic Acid Level 1.6mmol/L (0.4-2.0) Hold Lares Top Tube Received (Received) Urine Color Yellow (YELLOW) Urine Appearance Hazy (CLEAR,HAZY) Urine pH 7.0 (5.0-8.0) Urine Specific [place] 1.010 (1.003-1.035) Urine Protein Negativemg/dL (NEG,TRACE) Urine Glucose (UA) Negativemg/dL (NEGATIVE) Urine Ketones 80mg/dL (NEGATIVE) Urine Occult Blood Negative (NEGATIVE) Urine Nitrite Negative (NEGATIVE) Urine Bilirubin Negative (NEGATIVE) Urine Urobilinogen Normalmg/dL (NORMAL) Urine Leukocyte Esterase Moderate (NEGATIVE) Urine RBC 0-2/hpf (0-2) Urine WBC 6-10/hpf (0-5) Urine Epithelial Cells Many/hpf (NONE-MOD) Urine Crystals None seen (NONE SEEN) Urine Bacteria Moderate/hpf (NONE-FEW) Urine Hyaline Casts None/lpf (NONE) Urine Granular Casts None seen (NONE SEEN) Urine Waxy Casts None seen (NONE SEEN) Urine Red Blood Cell Casts None seen (NONE SEEN) Urine White Blood Cell Casts None seen (NONE SEEN) Urine Mucus None seen (None Seen) Urine Trichomonas None seen (NONE SEEN) Urine Yeast None (NONE SEEN) Urinalysis Comment None Urine Culture Reflexed Indicated Procalcitonin 0.10ng/mL (0.00-0.08) Test 12/27/16 03:01 12/27/16 08:10 12/28/16 03:59 12/30/16 04:50 Neutrophils (%) (Auto) 73.7% (40-74) Lymphocytes (%) (Auto) 12.8% (14-46) Monocytes (%) (Auto) 10.3% (4-12) Eosinophils (%) (Auto) 2.2% (0-5) Basophils (%) (Auto) 0.7% (0-3) Prothrombin Time 10.8sec (8.1-12.5) Prothromb Time International Ratio 1.01ratio Activated Partial Thromboplast Time 24.4sec (22.8-33.0) Carcinoembryonic Antigen 1.5ng/mL (0.0-4.7) CA 19-9 Antigen 9U/mL (0-35) Direct Bilirubin < 0.2mg/dL (0.0-0.3) Lipase 68U/L (13-60) Triglycerides Level 132mg/dL (0-149) Test 12/31/16 05:00 01/01/17 05:20 01/02/17 05:48 01/03/17 04:55 Hemoglobin A1c 4.5% (4.8-5.6) White Blood Count 6.3th/mm3 (3.8-10.1) Red Blood Count 3.92mil/mm3 (3.90-5.20) Hemoglobin 12.6g/dL (12.0-15.6) Hematocrit 37.2% (35.0-46.0) Mean Corpuscular Volume 94.9fL (81-100) Mean Corpuscular Hemoglobin 32.1pg (27.0-35.0) Mean Corpuscular Hemoglobin Concent 33.9% (32.0-37.0) Red Cell Distribution Width 13.5% (12.3-15.4) Platelet Count 221bil/L (150-400) Troponin T < 0.010ug/L (0.0-0.011) Phosphorus Level 4.1mg/dL (2.5-4.9) Magnesium Level 2.3mg/dL (1.6-2.6) Sodium Level 142mEq/L (134-144) Potassium Level 4.4mEq/L (3.5-5.2) Chloride Level 105mEq/L (97-108) Carbon Dioxide Level 25mmol/L (18-29) Blood Urea Nitrogen 18mg/dL (8-27) Creatinine 0.37mg/dL (0.57-1.00) Estimat Glomerular Filtration Rate 243mL/min (>59) Glucose Level 85mg/dL (60-99) Calcium Level 8.9mg/dL (8.5-10.1) Total Bilirubin 0.5mg/dL (0.0-1.2) Aspartate Amino Transf (AST/SGOT) 18U/L (0-50) Alanine Aminotransferase (ALT/SGPT) 23U/L (0-32) Alkaline Phosphatase 60U/L (25-165) Total Protein 6.0g/dL (6.4-8.4) Albumin 3.7g/dL (3.4-5.0) Plan Impression Patient chart reviewed, patient interviewed and anesthestic plan with risks, benefits, and alternatives discussed, and informed consent obtained. NPO per Anesth. Guidelines: Yes ASA Physical Status: ASA3 Severe Disease Anesthetic Plan: GA Bene/Risks/Altern/Consents: Yes HP Complete Prior to Induction: Yes Jak Hui MD January 03, 2017 12:49
[2017-01-03] MEDS ORDERED: Bupivacaine-MPF 0.5% W/EPI 30 mL Inj INFILTRATE ONE (12:56)
[2017-01-03] MEDS ORDERED: Lactated Ringer's 1,000 ML IV ONE ×2 (12:56→17:30)
--- NOTE | 2017-01-03 14:22 | PCM.PNMED ---
Subjective Date of Service January 03, 2017 Subjective Patient was seen and examined at bedside today. Patient denies any chest pain, shortness of breath, nausea, vomiting, diarrhea. Patient states that she feels constipated. Patient's daughter was present during exam. Overnight events: None Exam Vital Signs Vital Sign - Last Date Time Temp Pulse Resp B/P Pulse Ox O2 Delivery O2 Flow Rate FiO2 01/03/17 05:43 37.3 87 17 132/79 96 Room Air Intake and Output 01/02/17 01/02/17 01/03/17 Cumulative From/Thru 15:00 23:00 07:00 12/25/16 10:28 - 01/03/17 05:43 Intake Total 1136 ml 830 ml 01114 ml Output Total 700 ml 1230 ml 600 ml 62014 ml Balance -700 ml -94 ml 230 ml -3093 ml Intake Oral 100 ml 0 ml 1300 ml IV Total 1036 ml 100 ml 36241 ml TPN/PPN 730 ml 7804 ml Output Urine Total 700 ml 1150 ml 600 ml 91169 ml Gastric Drainage Total 80 ml 5815 ml # Voids 5 # Bowel Movements 0 0 Exam Physical Exam: GEN: Patient was awake, alert, responding appropriately to questions HEENT: Pupils equal round and reactive to light, extraocular eye muscles intact , Neck soft supple, trachea midline, nomocephalic/atraumatic, NG tube in place CV: +S1/S2, regular rate and rhythm, no murmurs auscultated Respiratory: CTAB, no wheezes, rales, rhonchi GI: +bowel sounds x4, soft, compressible, nontender to palpation EXT: no clubbing, cyanosis, edema Neuro: Cranial nerves II-XII grossly intact Psych: mood and affect were appropriate IVs and Medications Medications Reviewed: Medications were reviewed in detail Lab and Diagnostics Result Diagram: 01/01/17 0520 01/03/17 0455 X-Rays, CTs and MRIs PROCEDURE: CT ABDOMEN WITH CONTRAST IMPRESSION: 1. Distended gastric lumen, consistent with the given history of duodenal obstruction. 2. Hepatic steatosis. 3. 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 Dictated by: Amrik Mancera M.D. on 12/26/2016 at 21:20 Approved by: Amrik Mancera M.D. on 12/26/2016 at 21:23 PROCEDURE: X-RAY CHEST ONE VIEW, PORTABLE IMPRESSION: 1. Indistinct bandlike opacity in the left lung apex may represent developing consolidation or atelectasis. Dictated by: Roel Thompson M.D. on 12/25/2016 at 19:43 . 12-lead ECG 12/25/16 at 11:25 from multi focal atrial rhythm, [address] depressions V3-5, conduction intervals normal Assessment & Plan 76-year-old female with a small bowel obstruction. 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 Handley) Cardiac clearance -Troponin negative -Cardiac stress test: Showed no ischemic changes and no EKG changes during the stress test. Ejection fraction 97% and hyperdynamic left ventricle. -At this time the patient is currently scheduled for surgery tomorrow afternoon. Protein caloric deficiency malnutrition, present on admission -Continue TPN -Groshong catheter discontinued today and PICC line placed during surgery -We will consider transitioning patient to enteral feeding status post surgical procedure Hyponatremia, present on admission (resolved) Acute kidney injury, present on admission (resolved) Metabolic alkalosis (resolved) SIRS criteria, present on admission, (resolved) Hyperglycemia, acute, no history of type II diabetes -Improved glucose is now in no 100s -Hemoglobin A1c pending Venous thromboembolism prophylaxis with Lovenox held for surgery Disposition: Patient will go for her surgery today and also will have the Groshong removed and PICC line placed. Upon return will continue using TPN until it is established at the PEG tube is functional and the patient has adequate nutrition. GI Prophylaxis: Proton Pump Inhibitor VTE Prophylaxis: Sub-Q Enoxaparin VTE Mechanical Devices: Intermittant Pneumatic CD Resuscitation Status: CPR: Attempt Resuscitation Anupama Dinero DO January 03, 2017 14:22
[2017-01-03] MEDS ORDERED: fentaNYL 2 mCg/mL-Bupivicaine 0.125% 100 mL Premix EPIDURAL ONE (16:00)
[2017-01-03] MEDS ORDERED: EPHEDrine Sulfate 50 mg/mL Inj IV PRN ×3 (16:15→16:35)
[2017-01-03] MEDS ORDERED: Atropine 1 mg/mL Inj IVPUSH PRN ×3 (16:15→16:35)
[2017-01-03] MEDS ORDERED: SODIUM CHLORIDE 0.9% EPIDURAL SCH ×2 (16:26→16:31)
[2017-01-03] MEDS ORDERED: BUPIVACAINE MPF 0.5% EPIDURAL SCH ×2 (16:26→16:31)
[2017-01-03] MEDS ORDERED: Ondansetron 2 mg/mL 2 mL Inj IVPUSH PRN ×4 (16:30→17:20)
[2017-01-03] MEDS ORDERED: fentaNYL-PF 50 mCg/mL 2 mL Inj IVPUSH PRN ×2 (16:30→17:15)
[2017-01-03] MEDS ORDERED: Lactated Ringer's 500 ML IV PRN (17:11)
[2017-01-03] MEDS ORDERED: Lactated Ringer's 1,000 ML IV SCH (17:11)
[2017-01-03] MEDS ORDERED: hydrALAZINE 20 mg/mL Inj IVPUSH PRN (17:15)
[2017-01-03] MEDS ORDERED: Labetalol 5 mg/mL 4 mL Inj IV PRN (17:15)
[2017-01-03] MEDS ORDERED: Atropine 0.4 mg/mL Inj IVPUSH PRN (17:15)
[2017-01-03] MEDS ORDERED: HYDROmorphone 1 mg/mL Inj IVPUSH PRN (17:15)
[2017-01-03] MEDS ORDERED: Dexamethasone 4 mg/mL Inj IVPUSH PRN (17:15)
[2017-01-03] MEDS ORDERED: Phenylephrine 10,000 mCg/mL Inj IVPUSH PRN (17:15)
[2017-01-03] MEDS ORDERED: MetoCLOpramide 5 mg/mL 2 mL Inj IVPUSH PRN ×2 (17:15→17:20)
[2017-01-03] MEDS ORDERED: EPHEDrine Sulfate 50 mg/mL Inj IVPUSH PRN (17:15)
--- NOTE | 2017-01-03 17:20 | PCM.ANEP1 ---
Post Anesthesia Phase 1 PACU Phase 1 Assessment Date of Service: January 03, 2017 Vital Signs 36.1 115/90 79 18 95% RA Anesthetic Administered: GA Level of Alertness: Sleepy, easy to arouse ROGERS's with Equal Strength: Yes Pain: No Pain Scale Score: 0 Nausea or Vomiting: No Cardiovascular Function and Hy: Yes Oxygen Delivery: Room Air Lungs: Clear to Auscultation, Normal Air Movement Summary Patient remains hypotensive on phenylephrine gtt. Will increase fluid rate and bolus. Titrate phenylephrine for now, try to wean. May need to go to higher level post-op care. Complications: No Follow up Care: Yes Patient Instructions Provided: Yes Jak Hui MD January 03, 2017 17:20
[2017-01-03] MEDS: SODIUM CHLORIDE 0.9% EPIDURAL SCH (17:50)
[2017-01-03] MEDS: BUPIVACAINE MPF 0.25% EPIDURAL SCH (17:50)
[2017-01-03 17:53] LABS: APPEARANCE,URINE CLEAR (CLEAR,HAZY); COLOR,URINE YELLOW (YELLOW); OCCULT BLOOD,URINE NEGATIVE (NEGATIVE)
[2017-01-03 18:10] LABS: BASOPHILS % (AUTO) 0.2 % (0-3); EOSINOPHILS % (AUTO) 0.6 % (0-5); MONOCYTES % (AUTO) 4.9 % (4-12); Mean Corpuscular Hemoglobin 31.8 pg (27.0-35.0); Mean Corpuscular Volume 96.9 fL (81-100); NEUTROPHILS % (AUTO) 90.6 % (40-74); Platelet Count 290 bil/L (150-400)
--- NOTE | 2017-01-03 18:37 | DRSVH ---
PROCEDURE: X-RAY CHEST ONE VIEW, PORTABLE ([id number]) INDICATIONS: Shortness of breath TECHNIQUE: One view of the chest was acquired. COMPARISON: None. FINDINGS: Surgical changes and devices: Central line from left-sided approach extends into the distal SVC. Na sogastric tube positioning appears normal. Several different than additional wire-like devices overl ie the supraclavicular fossa on the right and across the midline and also overlie the midline more in feriorly over the lower half of the chest. These are of uncertain purpose. Lungs and pleura: No pleural effusions or pneumothorax. Lungs are mildly edematous. Mediastinum: Mediastinal contours appear normal. Heart size is normal. Bones and chest wall: No suspicious bony lesions. Overlying soft tissues appear unremarkable. IMPRESSION: Source of shortness of breath likely is mild pulmonary edema by the appearance of the ch est with reference to the comparison study from one day ago. Nasogastric tube positioning normal, le ft-sided central line, several wire-like structures overlie the right and midline chest as noted. Dictated by: Aurelio French M.D. on 01/03/2017 at 18:33 Approved by: Aurelio French M.D. on 01/03/2017 at 18:35
--- NOTE | 2017-01-03 18:45 | OP ---
[address] [address] OPERATIVE REPORT PATIENT: NEMESIO MCCONNELL : 1940 MR#: [id number] ADMIT: 12/25/2016 JOB ID: [id number] DATE OF SURGERY: 01/03/2017 PREOPERATIVE DIAGNOSIS(ES): Benign duodenal stricture. POSTOPERATIVE DIAGNOSIS(ES): Benign duodenal stricture. PROCEDURE PERFORMED: 1. Exploratory laparotomy. 2. Cholecystectomy. 3. Billroth-II retrocolic, retrogastric hand-sewn gastrojejunostomy. 4. Feeding jejunostomy. 5. Removal of Groshong catheter. SURGEON: Cady Handley MD ASSISTANTS: Jasvir Crawford MD; ARTUR NashIII HISTORY OF PRESENT ILLNESS: This is a 76-year-old woman with baseline dementia, who presented to the hospital with oral intolerance and on a thorough workup including endoscopy, CT scan of the abdomen and pelvis, and pancreatic protocol CT scan, was found to have a benign duodenal stricture at the exit of the duodenal bulb. There was no lumen visualized endoscopically. She was put on TPN and surgical options were discussed with her DPOA and family. Cardiac workup was performed due to mild ST abnormalities at the time of admission, but was essentially normal and she was considered to be low cardiac risk. Preoperatively, a plan was made for gastroenteric anastomosis with probable antrectomy. Reconstruction options had been discussed with the family as well, including Billroth-I, Billroth-II, and Dinah-en-Y, as well as reasons to perform an antrectomy versus avoided. Feeding jejunostomy was also discussed for postoperative alimentation. FINDINGS: 1. Normal-appearing stomach. 2. Scarring at the junction of D1 and D2, which adhered the duodenum to the pancreatic head. 3. Very dilated, mildly edematous gallbladder. 4. A wide retrocolic, retrogastric hand-sewn gastrojejunostomy was performed 10 cm distal to the ligament of Treitz. 5. Feeding jejunostomy performed 20 cm distal to the gastrojejunostomy. DESCRIPTION OF PROCEDURE: The patient was brought to the operating room and placed in supine position. General anesthesia was induced. A warming blanket and SCDs were placed. Preoperatively, the patient had been receiving TPN through a Groshong catheter. However, this catheter had developed a leak in one port. Therefore, a central line was placed by Anesthesia, and I removed the Groshong catheter later in the procedure. An epidural had been placed preoperatively. The operative field was prepped and draped in sterile fashion. A pause was performed to confirm the correct patient, procedure, and site. A vertical midline incision was made from umbilicus to the xiphisternum. The abdomen was entered and a Bookwalter retractor was placed along with a wound protector. The stomach and duodenum were identified, and the gallbladder was noted to be very large and edematous, and was occluding the view of member services representative anatomy somewhat. Based on its appearance and the concern that future issues in this elderly woman with dementia related to the gallbladder could result in great difficulty, cholecystectomy was performed. In order to evaluate the duodenal stricture, a Keerthi maneuver was performed. The pylorus was normal to palpation. The first portion of the duodenum was normal, and the stricture was identified at the junction between the first and second portions of the duodenum. The strictured region of the duodenum was very adherent to the head of the pancreas. The pancreas itself appeared normal. Although antrectomy had been discussed preoperatively given the patient's severe gastric dilation and the concern for postoperative difficulties with gastric emptying, the decision was made at this time to avoid gastric resection because of the location of the duodenal stricture and the potential concern for complications related to the duodenal stump. Therefore, a defect was made in the transverse mesocolon and a loop of jejunum was brought through it to form Billroth-II anastomosis. A posterior layer of 3-0 silk stitches was placed and the antimesenteric side of the small intestine and posterior aspect of the stomach were opened to create a wide anastomosis, at least 5 cm in length. An inner row of full-thickness 3-0 Vicryl sutures was placed. The NG tube was advanced through the anastomosis prior to tying this shut. Finally, an anterior row of 3-0 silk Lembert stitches was placed. The transverse mesocolon was then closed using interrupted silk sutures to the stomach and jejunum at the site of the anastomosis. This was performed to prevent internal hernia. Attention was then turned to feeding jejunostomy. A loop of jejunum 20 cm distal was chosen and a 14-Marshallese jejunostomy catheter was brought through a stab incision in the left mid abdomen. A pursestring suture was placed and the jejunum was opened. The feeding jejunostomy catheter was advanced into the jejunum. The balloon was insufflated with 1 mL of saline. The pursestring was tied. Four 3-0 silk stitches were used to create a Witzel tunnel. The jejunostomy was then sutured to the abdominal wall with four sutures in a square, and one anti-torsion stitch 3 cm distal to the insertion site. This was secured to the skin with three interrupted nylon stitches. The fascia was then closed with running 0 PDS and skin was closed with running 4-0 Monocryl. Sterile dressings were placed. The patient was awakened from general anesthesia and taken to the postoperative care unit in stable condition. ESTIMATED BLOOD LOSS: 5 mL. SPECIMENS: Gallbladder. COMPLICATIONS: None. CONI
[2017-01-03] MEDS: fentaNYL-PF 50 mCg/mL 2 mL Inj IVPUSH PRN (20:02)
[2017-01-03] MEDS: Acetaminophen IV 1,000 MG in IV Premix 1 EACH IV SCH (20:23)
[2017-01-03] MEDS: Phenylephrine Inj 20,000 MCG in 0.9% Sodium Chloride 248 ML IV SCH (20:23)
[2017-01-03] MEDS: Total Parenteral Nutrition 1 BAG IV SCH (21:03)
[2017-01-04] VITALS (10 sets, daily range): BP systolic 96–154; BP diastolic 46–76; PULSE 69–87; RESP 14–22; O2SAT 95–97
[2017-01-04] MEDS: fentaNYL-PF 50 mCg/mL 2 mL Inj IVPUSH PRN (00:09)
[2017-01-04] MEDS ORDERED: Heparin 5,000 Unit/mL Inj SUBQ SCH (00:30)
[2017-01-04] MEDS: Insulin REGULAR SS Low-Dose SUBQ SCH ×4 (02:30→20:30)
[2017-01-04] MEDS: Acetaminophen IV 1,000 MG in IV Premix 1 EACH IV SCH ×4 (03:47→21:23)
[2017-01-04 05:16] LABS: BASOPHILS % (AUTO) 0.2 % (0-3); EOSINOPHILS % (AUTO) 0.4 % (0-5); MONOCYTES % (AUTO) 5.8 % (4-12); Mean Corpuscular Hemoglobin 32.1 pg (27.0-35.0); Mean Corpuscular Volume 95.4 fL (81-100); NEUTROPHILS % (AUTO) 87.5 % (40-74); Platelet Count 222 bil/L (150-400)
[2017-01-04] MEDS: Phenylephrine Inj 20,000 MCG in 0.9% Sodium Chloride 248 ML IV SCH ×2 (05:23→19:46)
--- NOTE | 2017-01-04 08:39 | PCM.PNSURG ---
Subjective Visit Information: Reason for Visit Low Sodium, Low Potassium, Presistent Vomiting Surgery/Surgery Date LAP W/GAS. ANASTOMOSIS 01/01/17 Post-Op Day # Date of Admission: Dec 25, 2016 at 14:51 Hospital Day # Subjective: Stable overnight. Off phenylephrine gtt, normal vitals, labs are stable, < 200mL NG output. Objective Vital Sign- Last 8 Hours Date Time Temp Pulse Resp B/P Pulse Ox O2 Delivery O2 Flow Rate FiO2 01/04/17 04:30 36.8 69 14 115/54 Room Air 01/04/17 03:18 22 97 Intake and Output- Last 8 Hour 01/04/17 Cumulative From/Thru 07:00 12/25/16 10:28 - 01/04/17 05:21 Intake Total 1428 ml 47281 ml Output Total 180 ml 65256 ml Balance 1248 ml -1345 ml Intake Oral 1300 ml IV Total 370 ml 46099 ml TPN/PPN 1058 ml 8862 ml Output Urine Total 67881 ml Gastric Drainage Total 180 ml 6295 ml # Voids 5 # Bowel Movements 1 1 General: Alert, Cooperative, No Acute Distress Abdomen: Soft, Appropriately tender, Non-distended, Other (dressings c/d/i) Result Diagram: 01/04/17 0500 01/04/17 0500 Assessment & Plan Impression POD1 Gastrojejunostomy with feeding jejunostomy for duodenal stricture Problems: Plan PT consult Ambulation Transfer to floor NPO, continue epidural and NG today Do not manipulate NG Continue TPN today VTE Prophylaxis: Sub-Q Enoxaparin Resuscitation Status: CPR: Attempt Resuscitation Cady Handley MD January 04, 2017 08:39
[2017-01-04] MEDS: Pantoprazole 4 mg/mL 10 mL Inj IVPUSH SCH (09:07)
--- NOTE | 2017-01-04 10:43 | PCM.PHAPRO ---
Progress Date of Service: January 04, 2017 TPN A/ Stable on current TPN. P/ Continue same admixture as yesterday. PARENTERAL NUTRITION ORDERS 8 - Standard Hang Time: 2100 Substrates Total kcal: 1670 AMINO ACIDS 80 g DEXTROSE 250 g Total Volume (mL): 1650 LIPIDS 50 g Sterile Water for Injection QS mL To Infuse Over (hrs): 24 Total Volume 1650 mL At at a rate of (mL/hr): 69 Additives Sodium Chloride 60 mEq "typical" daily requirements Sodium Acetate 30 mEq Sodium 50-120mEq Potassium Chloride 40 mEq Potassium 60-120mEq Potassium Phosphate 10 mEq Phosphate 20-40mEq Calcium Gluconate 12 mEq Magnesium 8-32mEq Magnesium Sulfate 6 mEq Calcium 9-22mEq Acetate* 80-120mEq Chloride* 80-120mEq Regular Insulin 5 units *Depending on acid-base status Famotidine mg Multivitamins 1 std dose Insulin Regimen Trace Elements 1 std dose none Thiamine mg Regular Low Intensity Subcut x Folic Acid mg Regular Medium Intensity Subcut Ascorbic Acid mg Regular High Intensity Subcut Regular Insulin Infusion Other: Zach Nuñez January 04, 2017 10:43
[2017-01-04] MEDS ORDERED: Sodium Chloride LOK Flush 10 mL Syringe IVFLUSH PRN ×2 (11:15)
[2017-01-04] MEDS ORDERED: 0.9% Sodium Chloride 250 ML ONE (16:56)
--- NOTE | 2017-01-04 17:49 | PCM.PNMED ---
Subjective Date of Service January 04, 2017 Subjective Ms. Burris is a 76-year-old lady with a history of dementia, hypothyroidism, hypertension and recent abdominal complaints who presented to the Emergency Department with vomiting and disordered electrolytes. 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 Hospital day #10. Transferred to the CCU for post-operative hypotension requiring pressor support on phenylephrine. Per nursing, able to wean off of phenylephrine at 2100 and initiated again for short time. Patient hemodynamically stable off phenylephrine and transferred out of the CCU. She is resting comfortably and denies pain. Per the patient's daughter she was restless on arrival to the first floor but has since calmed down and has been able to rest. Exam Vital Signs Vital Sign - Last Date Time Temp Pulse Resp B/P Pulse Ox O2 Delivery O2 Flow Rate FiO2 01/04/17 08:00 21 97 01/04/17 08:00 36.8 80 117/71 Room Air 01/03/17 17:30 6 Intake and Output 01/03/17 01/03/17 01/04/17 Cumulative From/Thru 15:00 23:00 07:00 12/25/16 10:28 - 01/04/17 05:21 Intake Total 900 ml 100 ml 1428 ml 79737 ml Output Total 300 ml 200 ml 180 ml 97917 ml Balance 600 ml -100 ml 1248 ml -1345 ml Intake Oral 0 ml 1300 ml IV Total 900 ml 100 ml 370 ml 64449 ml TPN/PPN 1058 ml 8862 ml Output Urine Total 200 ml 26252 ml Gastric Drainage Total 300 ml 180 ml 6295 ml # Voids 5 # Bowel Movements 1 1 Exam General: Frail, elderly woman lying in bed, appears comfortable and in no acute distress, NG tube in place. HEENT: Normocephalic, atraumatic. Pupils equal, round, and reactive to light and accommodation, oral mucosa pink/moist Neck: Supple, non-tender, No lymphadenopathy or thyromegaly. Cardiovascular: Regular rate and rhythm with no murmurs, rubs, or gallops appreciated Pulmonary: Clear to auscultation bilaterally with no crackles, wheezes, or rhonchi. Abdomen: Soft, appropriately tender, nondistended. Surgical dressings clean, dry and intact. Extremities: No clubbing, cyanosis, or edema Skin: Normal temperature, turgor, and texture; no rashes or ulcerations. Neurological: Cranial nerves grossly intact, no focal deficits. IVs and Medications Medications Reviewed: Medications were reviewed in detail Lab and Diagnostics Laboratory Tests Test 01/03/17 18:00 01/04/17 05:00 White Blood Count 19.8th/mm3 (3.8-10.1) 12.2th/mm3 (3.8-10.1) Red Blood Count 3.81mil/mm3 (3.90-5.20) 3.46mil/mm3 (3.90-5.20) Hemoglobin 12.1g/dL (12.0-15.6) 11.1g/dL (12.0-15.6) Hematocrit 36.9% (35.0-46.0) 33.0% (35.0-46.0) Mean Corpuscular Volume 96.9fL (81-100) 95.4fL (81-100) Mean Corpuscular Hemoglobin 31.8pg (27.0-35.0) 32.1pg (27.0-35.0) Mean Corpuscular Hemoglobin Concent 32.8% (32.0-37.0) 33.6% (32.0-37.0) Red Cell Distribution Width 13.8% (12.3-15.4) 13.6% (12.3-15.4) Platelet Count 290bil/L (150-400) 222bil/L (150-400) Neutrophils (%) (Auto) 90.6% (40-74) 87.5% (40-74) Lymphocytes (%) (Auto) 3.3% (14-46) 5.8% (14-46) Monocytes (%) (Auto) 4.9% (4-12) 5.8% (4-12) Eosinophils (%) (Auto) 0.6% (0-5) 0.4% (0-5) Basophils (%) (Auto) 0.2% (0-3) 0.2% (0-3) Sodium Level 140mEq/L (134-144) 138mEq/L (134-144) Potassium Level 4.6mEq/L (3.5-5.2) 4.0mEq/L (3.5-5.2) Chloride Level 105mEq/L (97-108) 104mEq/L (97-108) Carbon Dioxide Level 22mmol/L (18-29) 21mmol/L (18-29) Blood Urea Nitrogen 24mg/dL (8-27) 22mg/dL (8-27) Creatinine 0.46mg/dL (0.57-1.00) 0.31mg/dL (0.57-1.00) Estimat Glomerular Filtration Rate 189mL/min (>59) 298mL/min (>59) Glucose Level 172mg/dL (60-99) 152mg/dL (60-99) Calcium Level 8.4mg/dL (8.5-10.1) 8.6mg/dL (8.5-10.1) Total Bilirubin 0.6mg/dL (0.0-1.2) 0.6mg/dL (0.0-1.2) Aspartate Amino Transf (AST/SGOT) 46U/L (0-50) 33U/L (0-50) Alanine Aminotransferase (ALT/SGPT) 47U/L (0-32) 42U/L (0-32) Alkaline Phosphatase 53U/L (25-165) 50U/L (25-165) Total Protein 5.3g/dL (6.4-8.4) 5.1g/dL (6.4-8.4) Albumin 3.2g/dL (3.4-5.0) 3.3g/dL (3.4-5.0) Result Diagram: 01/04/17 0500 01/04/17 0500 X-Rays, CTs and MRIs PROCEDURE: CT ABDOMEN WITH CONTRAST IMPRESSION: 1. Distended gastric lumen, consistent with the given history of duodenal obstruction. 2. Hepatic steatosis. 3. 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 Dictated by: Amrik Mancera M.D. on 12/26/2016 at 21:20 Approved by: Amrik Mancera M.D. on 12/26/2016 at 21:23 PROCEDURE: X-RAY CHEST ONE VIEW, PORTABLE IMPRESSION: 1. Indistinct bandlike opacity in the left lung apex may represent developing consolidation or atelectasis. Dictated by: Roel Thompson M.D. on 12/25/2016 at 19:43 . 12-lead ECG 12/25/16 at 11:25 from multi focal atrial rhythm, [address] depressions V3-5, conduction intervals normal Assessment & Plan Ms. Burris is a 76-year-old lady with a history of dementia, hypothyroidism, hypertension and recent abdominal complaints who presented to the Emergency Department with vomiting and disordered electrolytes. 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 Hospital day #10. 1. Small bowel obstruction, acute. Present on admission. Improved -Secondary to a duodenal stricture. Now post-operative day #1 following gastrojejunostomy with feeding jejunostomy. -Transferred to CCU for post-operative hypotension requiring pressor support on phenylephrine. -Surgery delayed on 01/01/[address] depression noted on EKG. Cardiology was consulted and ST changes were transient, attributed to electrolyte abnormality and normalized with correction of electrolytes. -Surgery is following, appreciate expertise and recommend: -NPO, continue epidural and NG tube -Continue TPN 2. Protein caloric deficiency malnutrition, present on admission. Active. -Continue TPNShe is on TPN and this will be continued before and after surgery until she can be transitioned to enteral feeding. -Groshong catheter discontinued today and PICC line placed during surgery -We will consider transitioning patient to enteral feeding status post surgical procedure 3. Severe hypokalemia, acute. Present on admission. Resolved. -Likely secondary to contraction alkalosis. Associated with atrial dysrhythmia. -Potassium 2.2 -Received IV potassium supplementation and IV fluids. -BMP monitored q4 hours 4. Hypovolemic hyponatremia,acute. Present on admission. Resolved. -Likely secondary to nausea and vomiting. Moderate with sodium of 123. -Received IV normal saline with BMP q4hrs with maximum correction 8-10mg/L over 24 hours. -IV normal saline, adjust rate for patient's of sodium correction 5. Acute renal failure, present on admission. Resolved. -Likely secondary to vomiting with resulting dehydration. -Serum creatinine on admission 0.77, declined to 0.45. -Received IV fluids, monitored BMP 6. Hyperglycemia, acute. Present on admission. Active -Patient without known diagnosis of diabetes mellitus. -Hemoglobin A1c 4.5 on 12/31/16. Disposition: Patient will likely discharge in 2-3 days pending Surgery recommendations and nutritional status. Pain Evaluation: Adequate Pain Control GI Prophylaxis: Proton Pump Inhibitor VTE Prophylaxis: Sub-Q Enoxaparin VTE Mechanical Devices: Intermittant Pneumatic CD Resuscitation Status: CPR: Attempt Resuscitation Attending Statement The patient was seen and examined together with Dr. Tracy on 01/04/2017 and I agree with the history, exam and plan as outlined in the note above. . Maryuri Tracy DO January 04, 2017 11:20 Zach Elliott MD January 04, 2017 18:19
[2017-01-04] MEDS: Total Parenteral Nutrition 1 BAG IV SCH (21:24)
[2017-01-05] VITALS (13 sets, daily range): BP systolic 116–188; BP diastolic 65–93; PULSE 40–98; RESP 16–18; O2SAT 94–99
[2017-01-05] MEDS: Insulin REGULAR SS Low-Dose SUBQ SCH ×4 (02:11→20:30)
[2017-01-05] MEDS: Pantoprazole 4 mg/mL 10 mL Inj IVPUSH SCH (06:00)
[2017-01-05] MEDS: fentaNYL-PF 50 mCg/mL 2 mL Inj IVPUSH PRN ×2 (06:07→08:01)
[2017-01-05 07:37] LABS: Mean Corpuscular Hemoglobin 31.7 pg (27.0-35.0); Mean Corpuscular Volume 93.9 fL (81-100)
--- NOTE | 2017-01-05 07:41 | PCM.PNSURG ---
Subjective Visit Information: Reason for Visit Low Sodium, Low Potassium, Presistent Vomiting Surgery/Surgery Date LAP W/GAS. ANASTOMOSIS 01/01/17 Post-Op Day # Date of Admission: Dec 25, 2016 at 14:51 Hospital Day # Subjective: Stable overnight. 650 mL bile out nasojejunal tube. Tolerating tube feeds since last night at 10mL/h. No nausea. Slater in place, feels like she needs to urinate. 900 ml UOP. Objective Vital Sign- Last 8 Hours Date Time Temp Pulse Resp B/P Pulse Ox O2 Delivery O2 Flow Rate FiO2 01/05/17 07:23 37.0 90 18 156/83 99 Room Air 01/05/17 06:22 37.2 93 16 188/92 94 Room Air 01/05/17 06:10 18 96 01/05/17 04:00 18 97 01/05/17 00:30 18 97 Intake and Output- Last 8 Hour 01/05/17 Cumulative From/Thru 07:00 12/25/16 10:28 - 01/05/17 06:22 Intake Total 787 ml 76227 ml Output Total 1550 ml 10511 ml Balance -763 ml -2303 ml Intake Oral 1300 ml IV Total 787 ml 90431 ml TPN/PPN 9744 ml Output Urine Total 900 ml 81090 ml Gastric Drainage Total 650 ml 7345 ml # Voids 5 # Bowel Movements 1 General: Alert, Cooperative, No Acute Distress Abdomen: Soft, Appropriately tender, Other (incisions c/d/i, J tube infusion @ 10mL/h) Result Diagram: 01/04/17 0500 01/04/17 0500 Assessment & Plan Impression POD2 Gastrojejunostomy and feeding jejunostomy for duodenal stricture. Problems: Plan I discontinued her nasojejunal tube. d/c slater Restart levothyroxine which is a home medication (ordered) Ambulation Continue trickle tube feeds today Continue PPI VTE Prophylaxis: Sub-Q Enoxaparin Resuscitation Status: CPR: Attempt Resuscitation Cady Handley MD January 05, 2017 07:41
[2017-01-05] MEDS ORDERED: 0.9% Sodium Chloride 250 ML ONE ×2 (07:55→23:32)
[2017-01-05] MEDS: Phenylephrine Inj 20,000 MCG in 0.9% Sodium Chloride 248 ML IV SCH ×2 (08:59→22:12)
[2017-01-05] MEDS: SODIUM CHLORIDE 0.9% EPIDURAL SCH (12:07)
[2017-01-05] MEDS: BUPIVACAINE MPF 0.25% EPIDURAL SCH (12:07)
--- NOTE | 2017-01-05 12:56 | PCM.PHAPRO ---
Progress Date of Service: January 05, 2017 TPN TPN management: A/ - TPN day 9. Post-op day 4 - Started feeding tube late last night @10ml/hr. - Electrolytes are stable, except potassium slight dropped @3.3 with no replacement - As feeding tube started and titrating up, dietian recommended to reduce 50% of macronutrient of TPN P/ - Cut down 50% macronutrients and add potassium 10mEq as follow: PARENTERAL NUTRITION ORDERS 9 JANUARY 05, 2017 Standard Hang Time: 2100 Substrates Total kcal: 835 AMINO ACIDS 40 g DEXTROSE 125 g Total Volume (mL): 1650 LIPIDS 25 g Sterile Water for Injection QS mL To Infuse Over (hrs): 24 Total Volume 1650 mL At at a rate of (mL/hr): 69 Additives Sodium Chloride 60 mEq "typical" daily requirements Sodium Acetate 30 mEq Sodium 50-120mEq Potassium Chloride 50 mEq Potassium 60-120mEq Potassium Phosphate 10 mEq Phosphate 20-40mEq Calcium Gluconate 12 mEq Magnesium 8-32mEq Magnesium Sulfate 6 mEq Calcium 9-22mEq Acetate* 80-120mEq Chloride* 80-120mEq Regular Insulin 5 units *Depending on acid-base status Famotidine mg Multivitamins 1 std dose Insulin Regimen Trace Elements 1 std dose none Thiamine mg Regular Low Intensity Subcut x Folic Acid mg Regular Medium Intensity Subcut Ascorbic Acid mg Regular High Intensity Subcut Regular Insulin Infusion Other: If patient is tolerating well feeding tube, TPN will likely discontinue by tomorrow. Pharmacy will continue to follow until the transition completed Nhi Flores January 05, 2017 12:56
[2017-01-05] MEDS: Levothyroxine 100 mCg/5 mL Inj IV SCH (13:10)
[2017-01-05] MEDS: Acetaminophen IV 1,000 MG in IV Premix 1 EACH IV PRN ×2 (14:13→22:14)
--- NOTE | 2017-01-05 14:44 | PATH ---
SURGICAL PATHOLOGY Attending Physician:Cady Handley MD CASE STATUS: Signed Out PATIENT NAME: NEMESIO MCCONNELL PID: [id number] : 1940 DATE COLLECTED:01/03/2017 00:00 SPECIMEN: Gallbladder CLINICAL HISTORY: 1). GALLBLADDER FINAL DIAGNOSIS: Gallbladder, Laparoscopic Cholecystectomy: Gallbladder with cholesterolosis. ICD10: K81 GROSS DESCRIPTION: The specimen is received in one formalin filled container labeled with the patient's name, sublabeled "gallbladder" and consists of an intact 10.5 x 5.0 x 4.0 CM gallbladder. The serosa is smooth. The wall is 0.2-0.3 CM in thickness. The mucosa is a dark green in color. The lumen contains a dark green mucoid material and no calculus is noted. 5 pharmacy services representative sections are seen in one cassette. 01/04/2017 [facility] ICD-9 CODES: CPT CODES: 1: 68755 Electronically Signed Out Shreya Noble MD [facility] [address], [place] [address] Technical component performed at [facility] [employer] [facility], [facility] [address], [place], [address]
--- NOTE | 2017-01-05 15:43 | PCM.PNMED ---
Subjective Date of Service January 05, 2017 Subjective feeling ok today. denies: headache, lightheadedness, chest pain, worsening shortness of breath, cough, worsening abdominal pain, nausea, vomiting, diarrhea, dysuria, sweats, chills, shakes Exam Vital Signs Vital Sign - Last Date Time Temp Pulse Resp B/P Pulse Ox O2 Delivery O2 Flow Rate FiO2 01/05/17 15:12 Room Air 01/05/17 12:19 18 99 01/05/17 11:27 37.1 98 169/93 01/03/17 17:30 6 Intake and Output 01/04/17 01/04/17 01/05/17 Cumulative From/Thru 15:00 23:00 07:00 12/25/16 10:28 - 01/05/17 06:22 Intake Total 1205 ml 787 ml 63489 ml Output Total 1400 ml 1550 ml 69479 ml Balance -195 ml -763 ml -2303 ml Intake Oral 0 ml 1300 ml IV Total 323 ml 787 ml 04740 ml TPN/PPN 882 ml 9744 ml Output Urine Total 1000 ml 900 ml 61697 ml Gastric Drainage Total 400 ml 650 ml 7345 ml # Voids 5 # Bowel Movements 0 1 Exam Gen: no acute distress HEENT: moist mucus membranes Respiratory: CTAB, unlabored respirations Cardiovascular: RRR, no m/r/g Abdomen: soft, non-tender, non-distended. + bowel sounds x 4 quadrants Extr: no edema b/l lower extremities Psyc: appropriate, cooperative Lab and Diagnostics Result Diagram: 01/05/17 0601/05/17 06 X-Rays, CTs and MRIs PROCEDURE: CT ABDOMEN WITH CONTRAST IMPRESSION: 1. Distended gastric lumen, consistent with the given history of duodenal obstruction. 2. Hepatic steatosis. 3. 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 Dictated by: Amrik Mancear M.D. on 12/26/2016 at 21:20 Approved by: Amrik Mancera M.D. on 12/26/2016 at 21:23 PROCEDURE: X-RAY CHEST ONE VIEW, PORTABLE IMPRESSION: 1. Indistinct bandlike opacity in the left lung apex may represent developing consolidation or atelectasis. Dictated by: Roel Thompson M.D. on 12/25/2016 at 19:43 . 12-lead ECG 12/25/16 at 11:25 from multi focal atrial rhythm, [address] depressions V3-5, conduction intervals normal Assessment & Plan Ms. Burris is a 76-year-old lady with a history of dementia, hypothyroidism, hypertension and recent abdominal complaints who presented to the Emergency Department with vomiting and disordered electrolytes. 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 1. Small bowel obstruction, acute. Present on admission. Improved -Secondary to a duodenal stricture. Now post-operative day #2 following gastrojejunostomy with feeding jejunostomy. -Transferred to CCU for post-operative hypotension requiring pressor support on phenylephrine. -Surgery delayed on 01/01/[address] depression noted on EKG. Cardiology was consulted and ST changes were transient, attributed to electrolyte abnormality and normalized with correction of electrolytes. -Surgery is following, appreciate expertise and recommend: ng tube removed today. 2. Protein caloric deficiency malnutrition, present on admission. Active. -cont to adjust nutrition as tolerated. 3. Severe hypokalemia, acute. Present on admission. Resolved. 4. Hypovolemic hyponatremia,acute. Present on admission. Resolved. 5. Acute renal failure, present on admission. Resolved. P 6. Hyperglycemia, acute. Present on admission. Active -Patient without known diagnosis of diabetes mellitus. -Hemoglobin A1c 4.5 on 12/31/16. Disposition: pending cont clinical improvment. final nutrition plan, surgery plan. GI Prophylaxis: Proton Pump Inhibitor VTE Prophylaxis: Sub-Q Enoxaparin VTE Mechanical Devices: Intermittant Pneumatic CD Resuscitation Status: CPR: Attempt Resuscitation Vic Bond MD January 05, 2017 15:43
--- NOTE | 2017-01-05 16:45 | PROG NOTE ---
[address] [address] PROGRESS NOTE PATIENT: NEMESIO MCCONNELL : 1940 MR#: [id number] ADMIT: 12/25/2016 JOB ID: [id number] DATE: 01/05/2017 I rounded on the patient at the bedside who has an indwelling epidural catheter around 8:30 in the morning on January 05, 2017. The patient rated her pain control as moderate. Subjectively she complained of pain in the lower abdominal region. When asked to show where her pain is located she touches the bottom of the incision and then below the incision and her very lower pelvis. Objectively, platelets are within normal limits. Her coagulation profile is within normal limits. She is receiving daily dosing of Lovenox 40 mg daily. PHYSICAL EXAMINATION: Epidural catheter is intact. There are no focal areas of infection. PLAN: I increased epidural rate from 6 mL an hour to 9 mL an hour. Followup to my intervention at 8:30 a.m., I re-rounded on the patient at 4:00 in the afternoon. The patient rated her pain as much improved. She no longer complains of lower abdominal pain. I communicated to the nursing team that they can continue the rate at 9 and we will round on her again tomorrow. There are no immediate plans to remove the epidural catheter. Thank you for the opportunity for us to help participate in the patient's care.
[2017-01-05] MEDS: Total Parenteral Nutrition 1 BAG IV SCH (21:00)
[2017-01-06] VITALS (11 sets, daily range): BP systolic 100–164; BP diastolic 56–92; PULSE 80–97; RESP 14–18; O2SAT 96–98
[2017-01-06] MEDS: Insulin REGULAR SS Low-Dose SUBQ SCH ×4 (02:30→20:30)
[2017-01-06 06:04] LABS: BASOPHILS % (AUTO) 0.4 % (0-3); EOSINOPHILS % (AUTO) 2.8 % (0-5); MONOCYTES % (AUTO) 7.7 % (4-12); Mean Corpuscular Hemoglobin 31.7 pg (27.0-35.0); Mean Corpuscular Volume 92.7 fL (81-100); NEUTROPHILS % (AUTO) 81.4 % (40-74); Platelet Count 248 bil/L (150-400)
[2017-01-06 06:29] LABS: Phosphorus 3.4 mg/dL (2.5-4.9)
[2017-01-06] MEDS: Pantoprazole 4 mg/mL 10 mL Inj IVPUSH SCH (07:47)
--- NOTE | 2017-01-06 08:28 | PCM.PNSURG ---
Subjective Visit Information: Reason for Visit Low Sodium, Low Potassium, Presistent Vomiting Surgery/Surgery Date LAP W/GAS. ANASTOMOSIS 01/01/17 Post-Op Day # Date of Admission: Dec 25, 2016 at 14:51 Hospital Day # Subjective: no acute events overnight, no n/v, no report of flatus or BM, on low J-tube feeding, walked yesterday. slater had to be re-inserted this am. Objective Objective Arousable in bed Abd: binder in place, incision clean with steristrips, J -tube in place Vital Sign- Last 8 Hours Date Time Temp Pulse Resp B/P Pulse Ox O2 Delivery O2 Flow Rate FiO2 01/06/17 06:09 36.4 91 17 132/81 96 Room Air 01/06/17 02:10 18 98 Intake and Output- Last 8 Hour 01/06/17 Cumulative From/Thru 07:00 12/25/16 10:28 - 01/06/17 06:30 Intake Total 381 ml 68512 ml Output Total 850 ml 06715 ml Balance -469 ml -920 ml Intake Oral 0 ml 1300 ml IV Total 381 ml 78934 ml Tube Feeding 248 ml TPN/PPN 25513 ml Tube Irrigant 652 ml Output Urine Total 850 ml 54277 ml Gastric Drainage Total 7345 ml # Voids 5 # Bowel Movements 0 1 Result Diagram: 01/06/17 0540 01/06/17 0540 Assessment & Plan Impression POD #3 s/p gastrojej and J-tube placement Slater catheter re-placed due to urinary retention Clinically stable Problems: Plan Increase J-tube feeding today Continue TPN OOB/ambulate/PT Ice chips OK Await flatus or BM Anesthesia to round on epidural catheter VTE Prophylaxis: Sub-Q Enoxaparin Resuscitation Status: CPR: Attempt Resuscitation Yg Patel MD January 06, 2017 08:28
[2017-01-06] MEDS: Levothyroxine 100 mCg/5 mL Inj IV SCH (09:21)
[2017-01-06] MEDS: Acetaminophen IV 1,000 MG in IV Premix 1 EACH IV PRN ×2 (11:09→21:16)
--- NOTE | 2017-01-06 11:09 | PROG NOTE ---
[address] [address] PROGRESS NOTE PATIENT: NEMESIO MCCONNELL : 1940 MR#: [id number] ADMIT: 12/25/2016 JOB ID: [id number] DATE: 01/06/2017 INPATIENT EPIDURAL PROGRESS NOTE: SUBJECTIVE: The patient was seen sleeping comfortably in a darkened room when I went to examine her this morning. Upon waking her up, she said that she hurts all over. She says that whenever she moves or does anything she hurts. I asked her to be more specific and she said that mainly she hurts in the left shoulder area and also in the groin area where a Lo catheter had been replaced this morning. Her daughter states that she did have a hard time with having the Lo placed this morning. When I asked specifically about her abdomen, the patient says that it does not hurt although she does feel the binder in place. She has been up ambulating yesterday, she is n.p.o. except for ice chips. She does note some rumbling in her abdomen. OBJECTIVE: Vital signs are within normal limits other than some hypertension. Her most recent labs are unremarkable. Unfortunately I was not able to examine her epidural catheter insertion site due to the presence of the abdominal binder covering the epidural site. She has no noticeable muscle weakness in the legs. ASSESSMENT AND PLAN: Postop day #3 status post laparotomy with gastrojejunostomy. Epidural appears to be functioning well after the infusion rate was increased yesterday. Continue epidural infusion as is I anticipate at least through the weekend to Sunday. We will continue to follow.
--- NOTE | 2017-01-06 14:03 | PCM.PNMED ---
Subjective Date of Service January 06, 2017 Subjective feels ok today. denies: headache, lightheadedness, chest pain, worsening shortness of breath, cough, abdominal pain, nausea, vomiting, diarrhea, dysuria, sweats, chills, shakes Exam Vital Signs Vital Sign - Last Date Time Temp Pulse Resp B/P Pulse Ox O2 Delivery O2 Flow Rate FiO2 01/06/17 13:01 36.7 86 16 100/56 96 Room Air 01/03/17 17:30 6 Intake and Output 01/05/17 01/05/17 01/06/17 Cumulative From/Thru 15:00 23:00 07:00 12/25/16 10:28 - 01/06/17 06:30 Intake Total 2127 ml 381 ml 06062 ml Output Total 275 ml 850 ml 51834 ml Balance 1852 ml -469 ml -920 ml Intake Oral 0 ml 1300 ml IV Total 278 ml 381 ml 65251 ml Tube Feeding 248 ml 248 ml TPN/PPN 949 ml 81008 ml Tube Irrigant 652 ml 652 ml Output Urine Total 275 ml 850 ml 18170 ml Gastric Drainage Total 7345 ml # Voids 5 # Bowel Movements 0 1 Exam Physical Exam: Gen: no acute distress HEENT: moist mucus membranes Respiratory: CTAB, unlabored respirations Cardiovascular: RRR, no m/r/g Abdomen: soft, non-tender, non-distended. Extr: no edema b/l lower extremities Psyc: appropriate, cooperative IVs and Medications Medications Reviewed: Medications were reviewed in detail Lab and Diagnostics Result Diagram: 01/06/17 0540 01/06/17 0540 X-Rays, CTs and MRIs PROCEDURE: CT ABDOMEN WITH CONTRAST IMPRESSION: 1. Distended gastric lumen, consistent with the given history of duodenal obstruction. 2. Hepatic steatosis. 3. 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 Dictated by: Amrik Mancera M.D. on 12/26/2016 at 21:20 Approved by: Amrik Mancera M.D. on 12/26/2016 at 21:23 PROCEDURE: X-RAY CHEST ONE VIEW, PORTABLE IMPRESSION: 1. Indistinct bandlike opacity in the left lung apex may represent developing consolidation or atelectasis. Dictated by: Roel Thompson M.D. on 12/25/2016 at 19:43 . 12-lead ECG 12/25/16 at 11:25 from multi focal atrial rhythm, [address] depressions V3-5, conduction intervals normal Assessment & Plan Ms. Burris is a 76-year-old lady with a history of dementia, hypothyroidism, hypertension and recent abdominal complaints who presented to the Emergency Department with vomiting and disordered electrolytes. 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 1. Small bowel obstruction, acute. Present on admission. Improved -Secondary to a duodenal stricture. Now post-operative day #3 following gastrojejunostomy with feeding jejunostomy. -Transferred to CCU for post-operative hypotension requiring pressor support on phenylephrine. -Surgery delayed on 01/01/[address] depression noted on EKG. Cardiology was consulted and ST changes were transient, attributed to electrolyte abnormality and normalized with correction of electrolytes. on tpn transitioning to tube feeds. still has epidural from surgery may be there until sunday work with PT to encourage ambulation. 2. Protein caloric deficiency malnutrition, present on admission. Active. -cont to adjust nutrition as tolerated. 3. Severe hypokalemia, acute. Present on admission. Resolved. 4. Hypovolemic hyponatremia,acute. Present on admission. Resolved. 5. Acute renal failure, present on admission. Resolved. P 6. Hyperglycemia, acute. Present on admission. Active -Patient without known diagnosis of diabetes mellitus. -Hemoglobin A1c 4.5 on 12/31/16. Disposition: pending cont clinical improvment. advancing nutrution GI Prophylaxis: Proton Pump Inhibitor VTE Prophylaxis: Sub-Q Enoxaparin VTE Mechanical Devices: Intermittant Pneumatic CD Resuscitation Status: CPR: Attempt Resuscitation Vic Bond MD January 06, 2017 14:03
[2017-01-06] MEDS: BUPIVACAINE MPF 0.25% EPIDURAL SCH (19:51)
[2017-01-06] MEDS: SODIUM CHLORIDE 0.9% EPIDURAL SCH (19:51)
[2017-01-06] MEDS: Total Parenteral Nutrition 1 BAG IV SCH (21:57)
[2017-01-07] VITALS (8 sets, daily range): BP systolic 117–145; BP diastolic 67–79; PULSE 82–90; RESP 16–20; O2SAT 94–98
[2017-01-07] MEDS: Insulin REGULAR SS Low-Dose SUBQ SCH ×4 (02:30→20:30)
[2017-01-07] MEDS: Acetaminophen IV 1,000 MG in IV Premix 1 EACH IV PRN (03:35)
[2017-01-07 06:29] LABS: Mean Corpuscular Hemoglobin 32.2 pg (27.0-35.0)
--- NOTE | 2017-01-07 09:37 | PCM.PNSURG ---
Subjective Visit Information: Reason for Visit Low Sodium, Low Potassium, Presistent Vomiting Surgery/Surgery Date LAP W/GAS. ANASTOMOSIS 01/01/17 Post-Op Day # Date of Admission: Dec 25, 2016 at 14:51 Hospital Day # Subjective: tube feeds at 30 cc/hr, goal rate is 50 cc/hr. Reports flatus, no BM. Epidural in place. Objective Objective Awake in bed Abd: incision clean, J-tube in place, abd binder in place Vital Sign- Last 8 Hours Date Time Temp Pulse Resp B/P Pulse Ox O2 Delivery O2 Flow Rate FiO2 01/07/17 06:39 36.8 87 16 117/67 94 Room Air Intake and Output- Last 8 Hour 01/07/17 Cumulative From/Thru 07:00 12/25/16 10:28 - 01/07/17 06:39 Intake Total 1720 ml 81080 ml Output Total 1200 ml 18989 ml Balance 520 ml 603 ml Intake Oral 0 ml 1400 ml IV Total 530 ml 72220 ml Tube Feeding 300 ml 548 ml TPN/PPN 750 ml 37615 ml Tube Irrigant 140 ml 792 ml Output Urine Total 1200 ml 22788 ml Gastric Drainage Total 7345 ml # Voids 5 # Bowel Movements 0 1 Result Diagram: 01/07/17 0610 01/07/17 0610 Assessment & Plan Impression s/p gastrojejunostomy and J-tube placement Problems: Plan Gradually increase J-tube feed up to goal rate of 50 cc/ hr Anesthesia to assess epidural catheter OK to try po tylenol Await BM VTE Prophylaxis: Sub-Q Enoxaparin Resuscitation Status: CPR: Attempt Resuscitation Yg Patel MD January 07, 2017 09:37
[2017-01-07] MEDS: Levothyroxine 100 mCg/5 mL Inj IV SCH (10:09)
[2017-01-07] MEDS: Pantoprazole 4 mg/mL 10 mL Inj IVPUSH SCH (10:15)
[2017-01-07] MEDS ORDERED: Acetaminophen IV 1,000 MG in IV Premix 1 EACH IV PRN (11:20)
--- NOTE | 2017-01-07 11:22 | PCM.PNMED ---
Subjective Date of Service January 07, 2017 Subjective feeling ok today. up in chair. will work with pt today denies: headache, lightheadedness, chest pain, worsening shortness of breath, cough, abdominal pain, nausea, vomiting, diarrhea, dysuria, sweats, chills, shakes Exam Vital Signs Vital Sign - Last Date Time Temp Pulse Resp B/P Pulse Ox O2 Delivery O2 Flow Rate FiO2 01/07/17 09:35 36.8 90 18 129/70 96 Room Air 01/03/17 17:30 6 Intake and Output 01/06/17 01/06/17 01/07/17 Cumulative From/Thru 15:00 23:00 07:00 12/25/16 10:28 - 01/07/17 06:39 Intake Total 2103 ml 1720 ml 94654 ml Output Total 1100 ml 1200 ml 83116 ml Balance 1003 ml 520 ml 603 ml Intake Oral 100 ml 0 ml 1400 ml IV Total 498 ml 530 ml 35642 ml Tube Feeding 300 ml 548 ml TPN/PPN 1505 ml 750 ml 32248 ml Tube Irrigant 140 ml 792 ml Output Urine Total 1100 ml 1200 ml 32960 ml Gastric Drainage Total 7345 ml # Voids 5 # Bowel Movements 0 1 Exam Physical Exam: Gen: no acute distress HEENT: moist mucus membranes Respiratory: CTAB, unlabored respirations Cardiovascular: RRR, no m/r/g Abdomen: soft, non-tender, non-distended. Extr: no edema b/l lower extremities Psyc: appropriate, cooperative Lab and Diagnostics Result Diagram: 01/07/17 0610 01/07/17 0610 X-Rays, CTs and MRIs PROCEDURE: CT ABDOMEN WITH CONTRAST IMPRESSION: 1. Distended gastric lumen, consistent with the given history of duodenal obstruction. 2. Hepatic steatosis. 3. 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 Dictated by: Amrik Mancera M.D. on 12/26/2016 at 21:20 Approved by: Amrik Mancera M.D. on 12/26/2016 at 21:23 PROCEDURE: X-RAY CHEST ONE VIEW, PORTABLE IMPRESSION: 1. Indistinct bandlike opacity in the left lung apex may represent developing consolidation or atelectasis. Dictated by: Roel Thompson M.D. on 12/25/2016 at 19:43 . 12-lead ECG 12/25/16 at 11:25 from multi focal atrial rhythm, [address] depressions V3-5, conduction intervals normal Assessment & Plan Ms. Burris is a 76-year-old lady with a history of dementia, hypothyroidism, hypertension and recent abdominal complaints who presented to the Emergency Department with vomiting and disordered electrolytes. 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 1. Small bowel obstruction, acute. Present on admission. Improved -Secondary to a duodenal stricture. Now post-operative day #4 following gastrojejunostomy with feeding jejunostomy. -Transferred to CCU for post-operative hypotension requiring pressor support on phenylephrine. -Surgery delayed on 01/01/[address] depression noted on EKG. Cardiology was consulted and ST changes were transient, attributed to electrolyte abnormality and normalized with correction of electrolytes. on tpn transitioning to tube feeds. still has epidural from surgery may be there until sunday. tailor pain regimen as necessary. cont work with PT to encourage ambulation. 2. Protein caloric deficiency malnutrition, present on admission. Active. -cont to adjust nutrition as tolerated. 3. Severe hypokalemia, acute. Present on admission. Resolved. 4. Hypovolemic hyponatremia,acute. Present on admission. Resolved. 5. Acute renal failure, present on admission. Resolved. P 6. Hyperglycemia, acute. Present on admission. Active -Patient without known diagnosis of diabetes mellitus. -Hemoglobin A1c 4.5 on 12/31/16. Disposition: pending cont clinical improvment. advancing nutrution GI Prophylaxis: Proton Pump Inhibitor VTE Prophylaxis: Sub-Q Enoxaparin VTE Mechanical Devices: Intermittant Pneumatic CD Resuscitation Status: CPR: Attempt Resuscitation Vic Bond MD January 07, 2017 11:22
--- NOTE | 2017-01-07 13:17 | PROG NOTE ---
[address] [address] PROGRESS NOTE PATIENT: NEMESIO MCCONNELL : 1940 MR#: [id number] ADMIT: 12/25/2016 JOB ID: [id number] DATE: I rounded on the patient at bedside following her epidural, which was placed on January 03, 2017, for a laparotomy in the setting of volvulus. Subjectively, at bedside, patient rates her pain as well controlled, complaining of mild left shoulder pain, which is consistent with yesterday, and seems consistent from that time as well controlled by p.o. Tylenol. No longer complaining of lower abdominal or incisional pain. Objectively, platelets remain stable today, 249. No recent coagulation studies and receiving daily 40 mg doses of enoxaparin for DVT prophylaxis. On physical exam, the catheter remains intact at about 19 to 18 cm at the skin with no focal or area concerns for infection. PLAN: Continue running her epidural at the current rate of 9 mL/h. I anticipate no changes to be made today, and the epidural catheter should be left intact and running. We will readdress the long-term plans with the surgical team tomorrow, anticipating that the epidural catheter should be removed within the next few days. Thank you for allowing us to participate in the patient's care and we will continue to follow.
[2017-01-07] MEDS ORDERED: Dextrose 5% 0.9% NaCl 1,000 ML IV SCH (22:30)
[2017-01-08] MEDS: Insulin REGULAR SS Low-Dose SUBQ SCH ×2 (02:30→08:18)
[2017-01-08 05:17] LABS: Mean Corpuscular Hemoglobin 31.1 pg (27.0-35.0)
[2017-01-08 05:38] VITALS: BP 130/77; PULSE 93; RESP 16; O2SAT 97
[2017-01-08 05:52] LABS: Phosphorus 3.2 mg/dL (2.5-4.9)
[2017-01-08] MEDS: Levothyroxine 100 mCg/5 mL Inj IV SCH (08:18)
[2017-01-08] MEDS: Pantoprazole 4 mg/mL 10 mL Inj IVPUSH SCH (08:18)
--- NOTE | 2017-01-08 09:01 | PROG NOTE ---
[address] [address] PROGRESS NOTE PATIENT: NEMESIO MCCONNELL : 1940 MR#: [id number] ADMIT: 12/25/2016 JOB ID: [id number] DATE: 01/08/2017 SUBJECTIVE: The patient is a 76-year-old woman, postoperative day five status post laparotomy for volvulus. She has had no abdominal discomfort with her epidural catheter over the last five days and has only endorsed shoulder discomfort. She was prescribed oral Tylenol which has worked well for this discomfort, likely diaphragmatic irritation during her procedure. OBJECTIVE: Vital signs are stable. She is afebrile. I was unable to evaluate her catheter site today. She was on the commode upon my visit. ASSESSMENT/PLAN: I have spoken with Dr. Bellamy and the patient's nurse about her surgical readiness for discharge in approximately 24 hours. Given that her pain is well controlled and she is tolerating oral Tylenol for shoulder discomfort, I think it prudent to stop the epidural catheter. She is receiving Lovenox once daily, so at the appropriate interval after 2 hours, her catheter can be removed. Start oral analgesics per the surgical team. Thank you for allowing us to care for this patient with you. CONI
[2017-01-08 09:06] VITALS: BP 122/72; RESP 18; O2SAT 96
--- NOTE | 2017-01-08 13:05 | PROG NOTE ---
[address] [address] PROGRESS NOTE PATIENT: NEMESIO MCCONNELL : 1940 MR#: [id number] ADMIT: 12/25/2016 JOB ID: [id number] DATE: The patient is doing well. Her tube feeding is up to 45 cc/hour. Pain control is adequate. She is tolerating p.o. with limited intake of 150 cc yesterday. Her incision is healing well. LABORATORIES: Show white count of 9.2, hematocrit of 30. Chemistries are normal. IMPRESSION/PLAN: She is doing very well. Her epidural will be held and she will be transitioned to oral pain medications. Once she is on oral pain medications, I suspect that she will be able to get her Lo out tomorrow morning. With the tube feeding almost up to an adequate rate, her TPN will be stopped. I anticipate she will be ready to leave the hospital in the next several days. To this effect, I reviewed the chart and there appears to be some thought that she would go to a senior living facility, though her says that she will be coming home. I have asked Care Management to work on a discharge plan with the and the adult children.
--- NOTE | 2017-01-08 13:08 | PCM.PNMED ---
Subjective Date of Service January 08, 2017 Subjective feeling a little better. ok with stopping epidural today. trying to work with pt as much as possible. denies: headache, lightheadedness, chest pain, worsening shortness of breath, cough, abdominal pain, nausea, vomiting, diarrhea, dysuria, sweats, chills, shakes Exam Vital Signs Vital Sign - Last Date Time Temp Pulse Resp B/P Pulse Ox O2 Delivery O2 Flow Rate FiO2 01/08/17 12:30 Room Air 01/08/17 09:06 36.7 18 122/72 96 01/08/17 05:38 93 01/03/17 17:30 6 Intake and Output 01/07/17 01/07/17 01/08/17 Cumulative From/Thru 15:00 23:00 07:00 12/25/16 10:28 - 01/08/17 06:55 Intake Total 1928 ml 1409 ml 34301 ml Output Total 950 ml 1600 ml 09946 ml Balance 978 ml -191 ml 1390 ml Intake Oral 150 ml 150 ml 1700 ml IV Total 373 ml 623 ml 25543 ml Tube Feeding 378 ml 516 ml 1442 ml TPN/PPN 843 ml 58322 ml Tube Irrigant 184 ml 120 ml 1096 ml Output Urine Total 950 ml 1600 ml 42722 ml Gastric Drainage Total 0 ml 7345 ml # Voids 5 # Bowel Movements 1 Exam Exam Physical Exam: Gen: no acute distress HEENT: moist mucus membranes Respiratory: CTAB, unlabored respirations Cardiovascular: RRR, no m/r/g Abdomen: soft, non-tender, non-distended. Extr: no edema b/l lower extremities Psyc: appropriate, cooperative Lab and Diagnostics Result Diagram: 01/08/17 0450 01/08/17 0450 X-Rays, CTs and MRIs PROCEDURE: CT ABDOMEN WITH CONTRAST IMPRESSION: 1. Distended gastric lumen, consistent with the given history of duodenal obstruction. 2. Hepatic steatosis. 3. 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 Dictated by: Amrik Mancera M.D. on 12/26/2016 at 21:20 Approved by: Amrik Mancera M.D. on 12/26/2016 at 21:23 PROCEDURE: X-RAY CHEST ONE VIEW, PORTABLE IMPRESSION: 1. Indistinct bandlike opacity in the left lung apex may represent developing consolidation or atelectasis. Dictated by: Roel Thompson M.D. on 12/25/2016 at 19:43 . 12-lead ECG 12/25/16 at 11:25 from multi focal atrial rhythm, [address] depressions V3-5, conduction intervals normal Assessment & Plan Ms. Burris is a 76-year-old lady with a history of dementia, hypothyroidism, hypertension and recent abdominal complaints who presented to the Emergency Department with vomiting and disordered electrolytes. 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 1. Small bowel obstruction, acute. Present on admission. Improved -Secondary to a duodenal stricture. s/p gastrojejunostomy with feeding jejunostomy. -Transferred to CCU for post-operative hypotension requiring pressor support on phenylephrine. -Surgery delayed on 01/01/[address] depression noted on EKG. Cardiology was consulted and ST changes were transient, attributed to electrolyte abnormality and normalized with correction of electrolytes. tolerating small amounts of po now tolerating tube feeds tpn stopped last night epidural scheduled to be stopped today 2. Protein caloric deficiency malnutrition, present on admission. Active. -cont to adjust nutrition as tolerated. 3. Severe hypokalemia, acute. Present on admission. Resolved. 4. Hypovolemic hyponatremia,acute. Present on admission. Resolved. 5. Acute renal failure, present on admission. Resolved. P 6. Hyperglycemia, acute. Present on admission. Active -Patient without known diagnosis of diabetes mellitus. -Hemoglobin A1c 4.5 on 12/31/16. Disposition: pending cont clinical improvment. advancing nutrution. physical therapy. likely eventual d/c to snf. GI Prophylaxis: Proton Pump Inhibitor VTE Prophylaxis: Sub-Q Enoxaparin VTE Mechanical Devices: Intermittant Pneumatic CD Resuscitation Status: CPR: Attempt Resuscitation Vic Bond MD January 08, 2017 13:08
[2017-01-08 18:40] VITALS: BP 123/63; PULSE 88; RESP 18; O2SAT 97
[2017-01-08 20:18] VITALS: BP 150/83; PULSE 111; RESP 18; O2SAT 99
[2017-01-09 05:02] VITALS: BP 159/84; PULSE 102; RESP 18; O2SAT 97
[2017-01-09 05:20] LABS: Mean Corpuscular Hemoglobin 31.7 pg (27.0-35.0); Mean Corpuscular Volume 93.7 fL (81-100)
[2017-01-09] MEDS: Pantoprazole 4 mg/mL 10 mL Inj IVPUSH SCH (07:48)
[2017-01-09] MEDS: Levothyroxine 100 mCg/5 mL Inj IV SCH (07:49)
--- NOTE | 2017-01-09 08:17 | PCM.PNSURG ---
Subjective Visit Information: Reason for Visit Low Sodium, Low Potassium, Presistent Vomiting Surgery/Surgery Date LAP W/GAS. ANASTOMOSIS 01/01/17 Post-Op Day # Date of Admission: Dec 25, 2016 at 14:51 Hospital Day # Subjective: Bilious emesis overnight. Epidural discontinued yesterday, slater discontinued today. WBC up to 13. + BM and flatus. Pain decreased. UOP 2800 yesterday, 1450 since midnight. Objective Vital Sign- Last 8 Hours Date Time Temp Pulse Resp B/P Pulse Ox O2 Delivery O2 Flow Rate FiO2 01/09/17 05:02 36.8 102 18 159/84 97 Room Air Intake and Output- Last 8 Hour 01/09/17 Cumulative From/Thru 07:00 12/25/16 10:28 - 01/09/17 06:17 Intake Total 100 ml 00871 ml Output Total 1750 ml 19957 ml Balance -1650 ml -416 ml Intake Oral 100 ml 1900 ml IV Total 31577 ml Tube Feeding 1962 ml TPN/PPN 77989 ml Tube Irrigant 1202 ml Output Urine Total 1450 ml 41193 ml Gastric Drainage Total 7345 ml Emesis 300 ml 300 ml # Voids 5 # Bowel Movements 1 General: Cooperative, No Acute Distress Abdomen: Soft, Other (mild distension, improved. Minimal tenderness on examination. J tube with TF at goal infusing. ) Result Diagram: 01/09/17 0505 01/09/17 0505 Assessment & Plan Impression POD 6 open GJ with feeding jejunostomy for duodenal stricture. Problems: Plan Sips/chips today. Slater out this am, urine cultures sent. WBC increased. I do not suspect intraabdominal infection based on benign examination, tolerance of tube feeds, + BM/flatus. Will follow urine cultures and anticipate hospitalist's assessment of whether UTI is a possibility. Continue tube feeds at goal. Ambulation. If repeated emesis today I will get UGI fluoroscopy tomorrow. Disposition: anticipate d/c to home with tube feeds, home health, possible home PT later this week, possibly 2-3 days. VTE Prophylaxis: Sub-Q Enoxaparin Resuscitation Status: CPR: Attempt Resuscitation Cady Handley MD January 09, 2017 08:17
[2017-01-09 08:23] VITALS: BP 155/78; PULSE 102; O2SAT 98
[2017-01-09] MEDS ORDERED: Potassium Chloride 20 mEq SR Tablet PO ONE (10:30)
--- NOTE | 2017-01-09 11:50 | PCM.PNMED ---
Subjective Date of Service January 09, 2017 Subjective She is slowly improving. No nausea or vomiting sodium. She did vomit follow- up last evening. No abdominal distention. No difficulty with dyspnea or palpitations or chest pain. She does have chronic cognitive impairment. No overnight events noted Exam Vital Signs Vital Sign - Last Date Time Temp Pulse Resp B/P Pulse Ox O2 Delivery O2 Flow Rate FiO2 01/09/17 10:17 Room Air 01/09/17 08:23 36.7 102 155/78 98 01/09/17 05:02 18 01/03/17 17:30 6 Intake and Output 01/08/17 01/08/17 01/09/17 Cumulative From/Thru 15:00 23:00 07:00 12/25/16 10:28 - 01/09/17 06:17 Intake Total 318 ml 726 ml 100 ml 42918 ml Output Total 1200 ml 1750 ml 67736 ml Balance 318 ml -474 ml -1650 ml -416 ml Intake Oral 100 ml 100 ml 1900 ml IV Total 318 ml 55572 ml Tube Feeding 520 ml 1962 ml TPN/PPN 10079 ml Tube Irrigant 106 ml 1202 ml Output Urine Total 1200 ml 1450 ml 04340 ml Gastric Drainage Total 7345 ml Emesis 300 ml 300 ml # Voids 5 # Bowel Movements 1 Exam Alert and oriented to person and place, no distress. Fluent speech Anicteric sclera. Lungs are clear with normal rate and effort Heart is regular without murmur gallop or rub Abdomen soft nontender, flat. Normal bowel tones Extremities are free of edema. Skin is free of rash or lesions. IVs and Medications Medications Reviewed: Medications were reviewed in detail Lab and Diagnostics Result Diagram: 01/09/17 0505 01/09/17 0505 X-Rays, CTs and MRIs PROCEDURE: CT ABDOMEN WITH CONTRAST IMPRESSION: 1. Distended gastric lumen, consistent with the given history of duodenal obstruction. 2. Hepatic steatosis. 3. 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 Dictated by: Amrik Mancera M.D. on 12/26/2016 at 21:20 Approved by: Amrik Mancera M.D. on 12/26/2016 at 21:23 PROCEDURE: X-RAY CHEST ONE VIEW, PORTABLE IMPRESSION: 1. Indistinct bandlike opacity in the left lung apex may represent developing consolidation or atelectasis. Dictated by: Roel Thompson M.D. on 12/25/2016 at 19:43 . 12-lead ECG 12/25/16 at 11:25 from multi focal atrial rhythm, [address] depressions V3-5, conduction intervals normal Assessment & Plan Ms. Burris is a 76-year-old lady with a history of dementia, hypothyroidism, hypertension and recent abdominal complaints who presented to the Emergency Department with vomiting and disordered electrolytes. 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 1. Small bowel obstruction, acute. Present on admission. Improved -Secondary to a duodenal stricture. s/p gastrojejunostomy with feeding jejunostomy. -Transferred to CCU for post-operative hypotension requiring pressor support on phenylephrine. -Surgery delayed on 01/01/[address] depression noted on EKG. Cardiology was consulted and ST changes were transient, attributed to electrolyte abnormality and normalized with correction of electrolytes. She is doing well and the plan is to really advance her diet quite slowly. She does have a mild leukocytosis today but a benign abdominal exam. A urinalysis was sent and is pending. tolerating small amounts of po now tolerating tube feeds, we will continue her current rate. tpn stopped epidural scheduled to be stopped today 2. Protein caloric deficiency malnutrition, present on admission. Active. -continue to adjust nutrition as tolerated. 3. Severe hypokalemia, acute. Present on admission. She did have a mild hypokalemia today and be given additional dose of potassium. 4. Hypovolemic hyponatremia,acute. Present on admission. Resolved. 5. Acute renal failure, present on admission. Resolved. 6. Hyperglycemia, acute. Present on admission. Active -Patient without known diagnosis of diabetes mellitus. -Hemoglobin A1c 4.5 on 12/31/16. Disposition: pending continued clinical improvement. advancing nutrition. physical therapy. likely eventual [facility] GI Prophylaxis: Proton Pump Inhibitor VTE Prophylaxis: Sub-Q Enoxaparin VTE Mechanical Devices: Intermittant Pneumatic CD Resuscitation Status: CPR: Attempt Resuscitation Trevon Padilla MD January 09, 2017 11:50
[2017-01-09 12:50] LABS: APPEARANCE,URINE CLOUDY (CLEAR,HAZY); COLOR,URINE STRAW (YELLOW); OCCULT BLOOD,URINE LARGE (NEGATIVE); PH,URINE 8.5 (5.0-8.0); UROBILINOGEN,URINE NORMAL (NORMAL); YEAST,URINE MODERATE (NONE SEEN)
[2017-01-09 13:10] VITALS: BP 127/79; PULSE 91; RESP 18; O2SAT 98
[2017-01-09 20:15] VITALS: BP 152/81; PULSE 106; RESP 22; O2SAT 99
[2017-01-10 04:55] VITALS: BP 151/82; PULSE 95; RESP 20; O2SAT 94
[2017-01-10 06:41] LABS: Mean Corpuscular Hemoglobin 31.8 pg (27.0-35.0); Mean Corpuscular Volume 94.5 fL (81-100)
--- NOTE | 2017-01-10 07:41 | PCM.PNSURG ---
Subjective Visit Information: Reason for Visit Low Sodium, Low Potassium, Presistent Vomiting Surgery/Surgery Date LAP W/GAS. ANASTOMOSIS 01/01/17 Post-Op Day # Date of Admission: Dec 25, 2016 at 14:51 Hospital Day # Subjective: No emesis in last 24h. WBC improving on abx started by primary team. Tolerating tube feeds at goal, 3 BMs yesterday per daughter, copious UOP. PT recommends home health PT. Objective Vital Sign- Last 8 Hours Date Time Temp Pulse Resp B/P Pulse Ox O2 Delivery O2 Flow Rate FiO2 01/10/17 04:55 36.7 95 20 151/82 94 Room Air Intake and Output- Last 8 Hour 01/10/17 Cumulative From/Thru 07:00 12/25/16 10:28 - 01/10/17 07:00 Intake Total 100 ml 01432 ml Output Total 1700 ml 27439 ml Balance -1600 ml -2416 ml Intake Oral 100 ml 2200 ml IV Total 96347 ml Tube Feeding 1962 ml TPN/PPN 00715 ml Tube Irrigant 1202 ml Output Urine Total 1700 ml 60001 ml Stool Total 0 ml 200 ml Gastric Drainage Total 7345 ml Emesis 300 ml # Voids 4 9 # Bowel Movements 1 General: Alert, Cooperative, No Acute Distress Abdomen: Soft, Appropriately tender, Other (feeding jejunostomy in place) Result Diagram: 01/10/17 0619 01/09/17 0505 Assessment & Plan Impression POD 7 gastrojejunostomy doing well Problems: Plan OK to discharge from surgical standpoint when family/social support are ready. Continue PPI indefinitely. Continue tube feeds at goal as outpt. Follow up with me in 2 weeks. Sips and chips, very slow advancement of diet at home. Antiemetic upon discharge. VTE Prophylaxis: Sub-Q Enoxaparin Resuscitation Status: CPR: Attempt Resuscitation Cady Handley MD January 10, 2017 07:41
[2017-01-10] MEDS: Pantoprazole 4 mg/mL 10 mL Inj IVPUSH SCH (08:37)
[2017-01-10] MEDS: Levothyroxine 100 mCg/5 mL Inj IV SCH (08:40)
[2017-01-10 08:58] VITALS: BP 151/90; PULSE 97; RESP 18; O2SAT 97
[2017-01-10 11:54] VITALS: BP 145/76; PULSE 101; RESP 18; O2SAT 96
--- NOTE | 2017-01-10 12:52 | PCM.PNMED ---
Subjective Date of Service January 10, 2017 Subjective She is doing a little better today. No nausea or vomiting. No abdominal pain. No chest pain, cough, palpitations or shortness of breath. No diarrhea. No overnight event Exam Vital Signs Vital Sign - Last Date Time Temp Pulse Resp B/P Pulse Ox O2 Delivery O2 Flow Rate FiO2 01/10/17 11:54 36.8 101 18 145/76 96 Room Air Intake and Output 01/09/17 01/09/17 01/10/17 Cumulative From/Thru 15:00 23:00 07:00 12/25/16 10:28 - 01/10/17 07:00 Intake Total 200 ml 100 ml 38699 ml Output Total 600 ml 1700 ml 94756 ml Balance -400 ml -1600 ml -2416 ml Intake Oral 200 ml 100 ml 2200 ml IV Total 32446 ml Tube Feeding 1962 ml TPN/PPN 21154 ml Tube Irrigant 1202 ml Output Urine Total 400 ml 1700 ml 23225 ml Stool Total 200 ml 0 ml 200 ml Gastric Drainage Total 7345 ml Emesis 300 ml # Voids 4 9 # Bowel Movements 1 Exam Alert and oriented -3, no distress. Fluent speech Anicteric sclera. Lungs are clear with normal rate and effort Heart is regular without murmur gallop or rub Abdomen soft nontender, flat. She does have a feeding tube in place in the abdomen. Extremities are free of edema. Skin is free of rash or lesions. IVs and Medications Medications Reviewed: Medications were reviewed in detail Lab and Diagnostics Result Diagram: 01/10/17 0619 01/09/17 0505 X-Rays, CTs and MRIs PROCEDURE: CT ABDOMEN WITH CONTRAST IMPRESSION: 1. Distended gastric lumen, consistent with the given history of duodenal obstruction. 2. Hepatic steatosis. 3. 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 Dictated by: Amrik Mancera M.D. on 12/26/2016 at 21:20 Approved by: Amrik Mancera M.D. on 12/26/2016 at 21:23 PROCEDURE: X-RAY CHEST ONE VIEW, PORTABLE IMPRESSION: 1. Indistinct bandlike opacity in the left lung apex may represent developing consolidation or atelectasis. Dictated by: Roel Thompson M.D. on 12/25/2016 at 19:43 . 12-lead ECG 12/25/16 at 11:25 from multi focal atrial rhythm, [address] depressions V3-5, conduction intervals normal Assessment & Plan Ms. Burris is a 76-year-old lady with a history of dementia, hypothyroidism, hypertension and recent abdominal complaints who presented to the Emergency Department with vomiting and disordered electrolytes. 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 #. Small bowel obstruction, acute. Present on admission. Improved -Secondary to a duodenal stricture. s/p gastrojejunostomy with feeding jejunostomy. -Transferred to CCU for post-operative hypotension requiring pressor support on phenylephrine. -Surgery delayed on 01/01/[address] depression noted on EKG. Cardiology was consulted and ST changes were transient, attributed to electrolyte abnormality and normalized with correction of electrolytes. She is doing well and the plan is to really advance her diet quite slowly. She continues to have tube feeding support while slowly advancing her diet. The working plan is discharge home likely Sunday with infusion solutions providing enteral tube feeds support while she continues to slowly advance diet at home with close follow-up. #. Urinary tract infection, diagnosed January 09. Cipro 500 twice a day. #. Protein caloric deficiency malnutrition, present on admission. Active. -continue to adjust nutrition as tolerated. Activity is again noticing bald #. Severe hypokalemia, acute. Present on admission. She did have a mild hypokalemia today and be given additional dose of potassium. #. Hypovolemic hyponatremia,acute. Present on admission. Resolved. #. Acute renal failure, present on admission. Resolved. #. Hyperglycemia, acute. Present on admission. Improved. -Patient without known diagnosis of diabetes mellitus. -Hemoglobin A1c 4.5 on 12/31/16. Discharge istentatively set for Sunday with home health and infusion solutions for home enteral feeding support. GI Prophylaxis: Proton Pump Inhibitor VTE Prophylaxis: Sub-Q Enoxaparin VTE Mechanical Devices: Intermittant Pneumatic CD Resuscitation Status: CPR: Attempt Resuscitation Trevon Padilla MD January 10, 2017 12:52
[2017-01-10 20:06] VITALS: BP 157/116; PULSE 93; RESP 18; O2SAT 97
[2017-01-11 04:49] VITALS: BP 149/76; PULSE 90; RESP 20; O2SAT 94
[2017-01-11 05:51] LABS: Mean Corpuscular Hemoglobin 31.8 pg (27.0-35.0); Mean Corpuscular Volume 95.5 fL (81-100)
[2017-01-11] MEDS: Levothyroxine 100 mCg/5 mL Inj IV SCH (08:05)
[2017-01-11] MEDS: Pantoprazole 4 mg/mL 10 mL Inj IVPUSH SCH (08:05)
--- NOTE | 2017-01-11 10:56 | DRSVH ---
PROCEDURE: X-RAY UPPER GI WITH GASTROGRAPHIN ([id number]) INDICATIONS: gastrojejunostomy COMPARISON: [facility], CR, XR UPPER GI GASTROGRAFIN, 12/27/2016, 12:20. FINDINGS: KUB: Preprocedural diabetes physician film demonstrates a normal bowel gas pattern. No suspicious abdominal calc ifications. Visualized solid organ contours appear normal. Bony structures appear unremarkable. A left lower quadrant jejunostomy tube is present. Patient was able to swallow Gastrografin without difficulties. The esophagus is grossly normal. The re is prompt opacification of the stomach which appears decompressed and grossly normal. The gastroj ejunal anastomosis is widely patent and there is opacification of the adjacent small bowel. No anast omotic leak is seen. Delayed imaging demonstrates further opacification of the small bowel. The atte nding physician was personally present in the room during the examination. IMPRESSION: 1. Billroth II anatomy is present with widely patent gastrojejunal anastomosis and no evidence of pos toperative leak. Dictated by: Ramiro CLAUDIO Interpreted: Wily Anderson MD on 01/11/2017 at 10:50 Transcribed by: MARLENY on 01/11/2017 at 10:53 Approved by: Immanuel Anderson M.D. on 01/11/2017 at 12:45
[2017-01-11 12:04] VITALS: BP 135/85; PULSE 109; O2SAT 81
--- NOTE | 2017-01-11 13:08 | PCM.DIMED ---
Discharge Instructions Date of Service January 11, 2017 Dates of Hospitalization Dec 25, 2016 at 14:51 Discharge Diagnosis Discharge Diagnosis SBO Diet Heart Healthy, Other (as tolerated) Activity No restrictions Call your provider Other (abd pain nausea/vomit) Patient Instructions tube feed 90days or more, home health Follow-up Provider: Drew Hummel MD Follow-up with PCP in: 2 weeks ([facility]) Provider: Cady Handley MD, Andris E MD January 11, 2017 13:08
[2017-01-11] MEDS ORDERED: CIPR-231 PO (13:18)
[2017-01-11] MEDS ORDERED: PROC25SU3 RECTAL (13:18)
[2017-01-11] MEDS ORDERED: ONDA4TAB12 PO (13:18)
--- NOTE | 2017-01-11 13:55 | PCM.PNSURG ---
Subjective Visit Information: Reason for Visit Low Sodium, Low Potassium, Presistent Vomiting Surgery/Surgery Date LAP W/GAS. ANASTOMOSIS 01/01/17 Post-Op Day # Date of Admission: Dec 25, 2016 at 14:51 Hospital Day # Subjective: One small episode of emesis. + BM. WBC normal. Tolerating tube feeds at goal. Objective Vital Sign- Last 8 Hours Date Time Temp Pulse Resp B/P Pulse Ox O2 Delivery O2 Flow Rate FiO2 01/11/17 12:04 36.7 109 135/85 81 Room Air 0.00 Intake and Output- Last 8 Hour 01/11/17 Cumulative From/Thru 07:00 12/25/16 10:28 - 01/11/17 06:09 Intake Total 200 ml 54008 ml Output Total 1100 ml 41846 ml Balance -900 ml -3416 ml Intake Oral 200 ml 2900 ml IV Total 03567 ml Tube Feeding 1962 ml TPN/PPN 94103 ml Tube Irrigant 1202 ml Output Urine Total 800 ml 12405 ml Stool Total 200 ml Gastric Drainage Total 7345 ml Emesis 300 ml 600 ml # Voids 1 10 # Bowel Movements 1 2 General: Alert, Oriented X3, Cooperative, No Acute Distress Abdomen: Soft, Appropriately tender Result Diagram: 01/11/17 0455 01/11/17 0455 Assessment & Plan Impression POD 8 gastrojejunostomy and feeding jejunostomy Problems: Plan UGI today as a baseline to assess current gastric emptying. OK to discharge from surgical perspective. F/U with me in 2 weeks. VTE Prophylaxis: Sub-Q Enoxaparin Resuscitation Status: CPR: Attempt Resuscitation Cady Handley MD January 11, 2017 13:55
--- NOTE | 2017-01-11 15:09 | PCM.DC.MED ---
Discharge Summary Date of Service January 11, 2017 Dates of Hospitalization Date of Hospital Admission Dec 25, 2016 at 14:51 Date of Discharge: January 11, 2017 Providers: Admitting Physician: Drew Hummel MD Primary Care Physician: Yaya Chavarria MD Attending Physician: Drew Hummel MD Diagnosis at Time of Discharge Diagnosis at Time of Discharge SBO Consultations Surgery Cady Handley Procedures XRay, CTs & MRIs PROCEDURE: CT ABDOMEN WITH CONTRAST IMPRESSION: 1. Distended gastric lumen, consistent with the given history of duodenal obstruction. 2. Hepatic steatosis. 3. 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 Dictated by: Amrik Mancera M.D. on 12/26/2016 at 21:20 Approved by: Amrik Mancera M.D. on 12/26/2016 at 21:23 PROCEDURE: X-RAY CHEST ONE VIEW, PORTABLE IMPRESSION: 1. Indistinct bandlike opacity in the left lung apex may represent developing consolidation or atelectasis. Dictated by: Roel Thompson M.D. on 12/25/2016 at 19:43 . ECG 12 Lead 12/25/16 at 11:25 from multi focal atrial rhythm, [address] depressions V3-5, conduction intervals normal Invasive Procedures Surgery Cady Handley 01/03 lap J-tube feeding 01/01 Small bowel anastomosis EGD 12/27 Brief History 76-year-old female with dementia presented 17 days ago with severe nausea and vomiting and hyponatremia/hypokalemia and was found to have small bowel obstruction. Hospital Course 76-year-old lady with a history of dementia, hypothyroidism, hypertension and recent abdominal complaints who presented to the Emergency Department with vomiting and disordered electrolytes. 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 Patient was initially diagnosed with a high-grade duodenal stricture by Gastrografin swallow study and small bowel follow-through, EGD was done patient was placed on TPN for a 5 days and a re-anastomosis was done by surgery/Dr. Handley, patient continued to have issues with eating and weaning from TPN so surgery placed jejunal feeding tube 5/3 and patient has been tolerating feedings through this ever since. At this point in time she is only swallowing small amounts of water and getting virtually all of her nutrition by the feeding tube. There are attempts to slowly advance her diet that is yet have not been successful. She is going home with the jejunal feeding tube expected to be there for 90 days, she has follow-up with Dr. Handley in 2 weeks #. Small bowel obstruction, acute. Present on admission. Improved -Secondary to a duodenal stricture. s/p gastrojejunostomy 01/01 with feeding jejunostomy 01/03. With Dr. Cady Handley -Transferred to CCU for post-operative hypotension requiring pressor support on phenylephrine. -Surgery delayed on 01/01/[address] depression noted on EKG. Cardiology was consulted and ST changes were transient, attributed to electrolyte abnormality and normalized with correction of electrolytes. #. Urinary tract infection, diagnosed January 09. Cipro 500 twice a day.-I do not think the patient is symptomatic, she has got another 5 days of Cipro prescribed -01/16 #. Protein caloric deficiency malnutrition, present on admission. Active. -- continue to adjust nutrition as tolerated. Patient is going home with [facility] and feeding tube in place with nutrition following. #. Severe hypokalemia, acute. Present on admission. She did have a mild hypokalemia today and be given additional dose of potassium. -Potassium has been low normal for the last few days prior to discharge this will need to be followed up once or twice a week. #. Hyperglycemia, acute. Present on admission. Improved. -Patient without known diagnosis of diabetes mellitus. -Hemoglobin A1c 4.5 on 12/31/16. #There were concerns about this patient's strength and ambulatory capacity I personally witnessed her ambulating with a walker over 200 feet in the hallway with her daughter on the date of discharge. Exam Vital Signs (Last) Date Time Temp Pulse Resp B/P Pulse Ox O2 Delivery O2 Flow Rate FiO2 01/11/17 12:04 36.7 109 135/85 81 Room Air 0.00 01/11/17 04:49 20 Exam Gen.- A+ O 1-2 no apparent distress. Elderly female sitting in the room sitting up in a chair dressed in street clothes and also ambulating in the hallway over 200 feet Eyes- open conjunctiva clear, pupils equal nonicteric Mouth- oral mucosa moist, no exudate ENT- ears normal, nose normal Neck- supple/trach midline CVS- RRR no murmur or gallop Lungs- CTA GI- NABS/NT soft Musc- moving 4 no obvious deformity Neuro- cranial nerves II through XII intact to gross examination, nonfocal Skin- warm and dry, no rashes/lesions/wounds noted Psych- pleasantly confused Test 12/25/16 11:02 12/25/16 11:05 12/26/16 04:24 12/27/16 03:01 Thyroid Stimulating Hormone (TSH) 2.540uIU/mL (0.450-4.500) Lactic Acid Level 1.6mmol/L (0.4-2.0) Hold Lares Top Tube Received (Received) Procalcitonin 0.10ng/mL (0.00-0.08) Prothrombin Time 10.8sec (8.1-12.5) Prothromb Time International Ratio 1.01ratio Activated Partial Thromboplast Time 24.4sec (22.8-33.0) Test 12/27/16 08:10 12/28/16 03:59 12/30/16 04:50 12/31/16 05:00 Carcinoembryonic Antigen 1.5ng/mL (0.0-4.7) CA 19-9 Antigen 9U/mL (0-35) Direct Bilirubin < 0.2mg/dL (0.0-0.3) Lipase 68U/L (13-60) Triglycerides Level 132mg/dL (0-149) Hemoglobin A1c 4.5% (4.8-5.6) Test 01/01/17 05:20 01/03/17 04:55 01/06/17 05:40 01/08/17 04:50 Troponin T < 0.010ug/L (0.0-0.011) Ionized Calcium 1.17mmol/L (1.17-1.32) Neutrophils (%) (Auto) 81.4% (40-74) Lymphocytes (%) (Auto) 7.1% (14-46) Monocytes (%) (Auto) 7.7% (4-12) Eosinophils (%) (Auto) 2.8% (0-5) Basophils (%) (Auto) 0.4% (0-3) Phosphorus Level 3.2mg/dL (2.5-4.9) Test 01/09/17 05:05 01/09/17 08:00 01/11/17 04:55 Magnesium Level 2.0mg/dL (1.6-2.6) Urine Color Straw (YELLOW) Urine Appearance Cloudy (CLEAR,HAZY) Urine pH 8.5 (5.0-8.0) Urine Specific [place] 1.015 (1.003-1.035) Urine Protein Tracemg/dL (NEG,TRACE) Urine Glucose (UA) Negativemg/dL (NEGATIVE) Urine Ketones Negativemg/dL (NEGATIVE) Urine Occult Blood Large (NEGATIVE) Urine Nitrite Positive (NEGATIVE) Urine Bilirubin Negative (NEGATIVE) Urine Urobilinogen Normalmg/dL (NORMAL) Urine Leukocyte Esterase Moderate (NEGATIVE) Urine RBC 11-50/hpf (0-2) Urine WBC 11-50/hpf (0-5) Urine Epithelial Cells Occasional/hpf (NONE-MOD) Urine Crystals None seen (NONE SEEN) Urine Bacteria Many/hpf (NONE-FEW) Urine Hyaline Casts None/lpf (NONE) Urine Granular Casts None seen (NONE SEEN) Urine Waxy Casts None seen (NONE SEEN) Urine Red Blood Cell Casts None seen (NONE SEEN) Urine White Blood Cell Casts None seen (NONE SEEN) Urine Mucus None seen (None Seen) Urine Trichomonas None seen (NONE SEEN) Urine Yeast Moderate (NONE SEEN) Urinalysis Comment None Urine Culture Reflexed Indicated Hold Urine Received (Received) White Blood Count 8.1th/mm3 (3.8-10.1) Red Blood Count 3.37mil/mm3 (3.90-5.20) Hemoglobin 10.7g/dL (12.0-15.6) Hematocrit 32.2% (35.0-46.0) Mean Corpuscular Volume 95.5fL (81-100) Mean Corpuscular Hemoglobin 31.8pg (27.0-35.0) Mean Corpuscular Hemoglobin Concent 33.2% (32.0-37.0) Red Cell Distribution Width 14.5% (12.3-15.4) Platelet Count 323bil/L (150-400) Sodium Level 142mEq/L (134-144) Potassium Level 3.7mEq/L (3.5-5.2) Chloride Level 101mEq/L (97-108) Carbon Dioxide Level 27mmol/L (18-29) Blood Urea Nitrogen 16mg/dL (8-27) Creatinine 0.39mg/dL (0.57-1.00) Estimat Glomerular Filtration Rate 228mL/min (>59) Glucose Level 101mg/dL (60-99) Calcium Level 8.6mg/dL (8.5-10.1) Total Bilirubin 0.4mg/dL (0.0-1.2) Aspartate Amino Transf (AST/SGOT) 15U/L (0-50) Alanine Aminotransferase (ALT/SGPT) 24U/L (0-32) Alkaline Phosphatase 90U/L (25-165) Total Protein 5.9g/dL (6.4-8.4) Albumin 3.3g/dL (3.4-5.0) Discharge Medications Discharge Medications Ciprofloxacin (Cipro) 500 Mg Tablet 500 MG PO BID Prescribed by: PRINCE COOEPR MD Levothyroxine (Levothyroxine) 50 Mcg Tablet 50 MCG PO DAILY (Reported) Pantoprazole DR (Pantoprazole DR) 40 Mg Tablet.dr 40 MG PO BID (Reported) As needed Acetaminophen (Acetaminophen) 500 Mg Tablet 500-1,000 MG PO Q6H PRN PRN For Pain (Reported) Ondansetron ODT (Ondansetron ODT) 4 Mg Tab.rapdis 4 MG PO Q8H PRN PRN For Nausea /Vomiting Prescribed by: PRINCE COOPER MD Prochlorperazine Maleate (Prochlorperazine Suppository) 25 Mg Supp.rect 25 MG RECTAL Q6H PRN PRN For Nausea/Vomiting Prescribed by: PRINCE COOPER MD Tramadol (Tramadol) 50 Mg Tablet 50 MG PO Q6H PRN PRN For Pain (Reported) Followup Plan Disposition: Patient's going home with home health and feeding tubes for at least the next 90 days. Follow-up plan Patient should have labs CBC, basic metabolic and/or nutrition panel at least once a week if not twice a week probably Sunday and for the perceivable future. Discharge Diet: Heart Healthy, Other (as tolerated) Discharge Activity: No restrictions Patient Instructions tube feed 90days or more, home health Follow-up Provider: Drew Hummel MD Follow-up with PCP in: 2 weeks ([facility]) Provider: Cady Handley MD Time spent Greater than 30 minutes Prince Cooper MD January 11, 2017 15:09
== END 2017-01-11 15:44 | disposition home health service (06) | DRG 327 ==
LOC: SED 10:04 → PCC 14:51 → OSC 12-29 13:26 → PCC 01-03 18:00 → CCU 01-03 19:19 → PCC 01-04 08:00 → OSC 01-04 11:41
PROVIDERS: ADMIT Internal Medicine; ATTEND Internal Medicine
PROC: 0DJ08ZZ Inspection of Upper Intestinal Tract, Via Natural or Artificial Opening Endoscopic (ICD-10-PCS; 2016-12-26)
PROC: 0D1A0Z4 Bypass Jejunum to Cutaneous, Open Approach (ICD-10-PCS; 2017-01-03)
PROC: 0D160ZA Bypass Stomach to Jejunum, Open Approach (ICD-10-PCS; principal; 2017-01-03 13:30)
DX: K31.5 Obstruction of duodenum (principal); E87.1 Hypo-osmolality and hyponatremia; E87.3 Alkalosis; N17.9 Acute kidney failure, unspecified; E46 Unspecified protein-calorie malnutrition; Z68.1 Body mass index [BMI] 19.9 or less, adult; N39.0 Urinary tract infection, site not specified; I10 Essential (primary) hypertension; E87.6 Hypokalemia; F03.90 Unspecified dementia, unspecified severity, without behavioral disturbance, psychotic disturbance, mood disturbance, and anxiety; R11.2 Nausea with vomiting, unspecified; K31.1 Adult hypertrophic pyloric stenosis; R94.31 Abnormal electrocardiogram [ECG] [EKG]; R73.9 Hyperglycemia, unspecified

== ENCOUNTER 2017-01-15 10:00 | Emergency (ER) | payer MEDICARE, OTHER ==
[~2017-01-15] VITALS: Ht 172.7 cm; Wt 56.8 kg
[~2017-01-15 10:00] MED LIST: ACET-171 PO; CIPR-231 PO; LEVO50TA6 PO; ONDA4TAB12 PO; PANT40TA3 PO; PROC25SU3 RECTAL; TRAM50TA2 PO
[2017-01-15 10:08] VITALS: BP 119/79; PULSE 99; RESP 18; O2SAT 98
--- NOTE | 2017-01-15 10:34 | ED.REPORT ---
HPI-General Illness Date of Service January 15, 2017 ED Provider: Brii Asencio MD Patient presents for clogged PEG tube. Symptoms began 3 AM. Family has tried [employer] through the feeding tube and has been unsuccessful. Denies fever or chills abdominal pain vomiting or other symptoms. Nursing Notes Stated Complaint: BLOCKED FEEDING TUBE Chief Complaint: General Complaint Allergies: Coded Allergies: Penicillins (Verified Allergy, Unknown, 12/25/16) Sulfa (Sulfonamide Antibiotics) (Verified Allergy, Unknown, 12/25/16) cefaclor (Verified Allergy, Unknown, 12/25/16) codeine (Verified Allergy, Unknown, 12/25/16) metronidazole (Verified Allergy, Unknown, 12/25/16) omeprazole (Verified Allergy, Unknown, 12/25/16) hydrocodone (Verified Adverse Reaction, Unknown, nausea, 12/25/16) Scheduled Ciprofloxacin (Cipro) 500 Mg Tablet 500 MG PO BID Levothyroxine (Levothyroxine) 50 Mcg Tablet 50 MCG PO DAILY Pantoprazole DR (Pantoprazole DR) 40 Mg Tablet.dr 40 MG PO BID Scheduled PRN Acetaminophen (Acetaminophen) 500 Mg Tablet 500-1,000 MG PO Q6H PRN PRN For Pain Ondansetron ODT (Ondansetron ODT) 4 Mg Tab.rapdis 4 MG PO Q8H PRN PRN For Nausea /Vomiting Prochlorperazine Maleate (Prochlorperazine Suppository) 25 Mg Supp.rect 25 MG RECTAL Q6H PRN PRN For Nausea/Vomiting Tramadol (Tramadol) 50 Mg Tablet 50 MG PO Q6H PRN PRN For Pain General Time Seen by MD: 10:34 Chief Complaint Other Past Medical History Past Medical History Reports: Diabetes mellitus, Hypertension Reports: Dementia, Thyroid disease Smoking History Unknown if Ever Smoker Social History Other Social History: Good social support, Ambulatory Status Independent Review of Systems Full Review of Systems Constitutional: Denies: Chills, Fever GI: Denies: Abdominal pain Hematologic: Denies Bleeding Skin: Denies Diaphoresis Complete sys rev & neg: except as marked. Physical Exam Vital Signs Vital Signs Date Time Temp Pulse Resp B/P Pulse Ox O2 Delivery O2 Flow Rate FiO2 01/15/17 10:08 36.9 99 18 119/79 98 Room Air Initial VS: Vital signs normal General/Constitutional: Well-developed, Well-nourished Head / Eyes: Atraumatic, Normocephalic, PERRL ENT: Mucous membranes moist, Conjunctiva normal, No scleral icterus Neck: Supple, Non-tender, Full range of motion Respiratory: No respiratory distress Abdomen / GI: Soft, Non-tender, No guarding, No rebound, No distention Back: No CVA tenderness Lymphatic: No lymphadenopathy Extremities: Vascular intact, Neuro intact, No swelling, No tenderness Skin: Warm, Dry, No cyanosis Neurologic: Alert, Oriented, Nonfocal Psychiatric: Mood/affect normal, Behavior normal, Normal thought content Midline abdominal scar, PEG tube in the right upper quadrant. Procedures Procedure Notes: Diet Apollo cola was used to flush the feeding tube. One full can was given. Re-Eval/Medical Decision Med Decision/Clinical Course Successfully flushed with diet Lilian cola. Recommend close follow-up with surgery and PCP. Return precautions given. Discharge & Departure Primary Impression: Feeding tube blocked Disposition: Home Discharge Condition All VS Reviewed: Yes Condition: Stable Additional Instructions: Contact your surgeon to further discuss more frequent free water flushing. Return to the ER as needed. Referrals: Yaya Chavarria MD (PCP) Gianluca Hicks DO January 15, 2017 10:34
== END 2017-01-15 11:08 | disposition home or self-care (01) ==
LOC: SED 10:00
DX: K94.29 Other complications of gastrostomy (principal); E11.9 Type 2 diabetes mellitus without complications; I10 Essential (primary) hypertension; Z88.0 Allergy status to penicillin; Z88.2 Allergy status to sulfonamides; Z88.8 Allergy status to other drugs, medicaments and biological substances; Z88.5 Allergy status to narcotic agent

== ENCOUNTER 2017-01-21 09:43 | Emergency (ER) | payer MEDICARE, OTHER ==
[2017-01-21 09:49] VITALS: BP 128/80; PULSE 99; RESP 22; O2SAT 98
--- NOTE | 2017-01-21 10:21 | ED.REPORT ---
HPI-General Illness Date of Service January 21, 2017 ED Provider: Jett Klein MD The patient is a 76 year old female w/ a hx of colorectal cancer, dementia, DM, and HTN who presents to the ED accompanied by her due to PEG tube issues. C/o associated abdominal pain that is substantially worse then usual. She denies fever, chills, cough, vomiting, diarrhea and nausea. The pt was seen 6 days ago for a clogged PEG tube. Nursing Notes Stated Complaint: CLOGGED FEEDING TUBE Chief Complaint: General Complaint Nursing Notes Reviewed: Yes Allergies: Coded Allergies: Penicillins (Verified Allergy, Unknown, 01/21/17) Sulfa (Sulfonamide Antibiotics) (Verified Allergy, Unknown, 01/21/17) cefaclor (Verified Allergy, Unknown, 01/21/17) codeine (Verified Allergy, Unknown, 01/21/17) metronidazole (Verified Allergy, Unknown, 01/21/17) omeprazole (Verified Allergy, Unknown, 01/21/17) hydrocodone (Verified Adverse Reaction, Unknown, nausea, 01/21/17) Scheduled Ciprofloxacin (Cipro) 500 Mg Tablet 500 MG PO BID Levothyroxine (Levothyroxine) 50 Mcg Tablet 50 MCG PO DAILY Pantoprazole DR (Pantoprazole DR) 40 Mg Tablet.dr 40 MG PO BID Scheduled PRN Acetaminophen (Acetaminophen) 500 Mg Tablet 500-1,000 MG PO Q6H PRN PRN For Pain Ondansetron ODT (Ondansetron ODT) 4 Mg Tab.rapdis 4 MG PO Q8H PRN PRN For Nausea /Vomiting Prochlorperazine Maleate (Prochlorperazine Suppository) 25 Mg Supp.rect 25 MG RECTAL Q6H PRN PRN For Nausea/Vomiting Tramadol (Tramadol) 50 Mg Tablet 50 MG PO Q6H PRN PRN For Pain General Time Seen by MD: 10:13 Chief Complaint Other (PEG tube difficulties) Hx Obtained From: Patient Arrived By: Walk-in Sudden in Onset?: Yes Onset Occurred: Yesterday Symptom Duration: Since onset Location: : Abdomen Quality: Painful Severity: Current: Moderate Recent Healthcare: Recent doctor visit Similar Sx Previous: Yes Past Medical History Past Medical History Reports: Diabetes mellitus, Hypertension Reports: Dementia, Thyroid disease Past Surgical History Reports: Appendectomy, Smoking History Unknown if Ever Smoker Social History Other Social History: Good social support, , Local resident Ambulatory Status Independent Review of Systems Full Review of Systems Constitutional: Denies: Chills, Fever Respiratory: Denies: Non-productive cough GI: Reports: Abdominal pain, Denies: Diarrhea, Nausea, Vomiting Complete sys rev & neg: except as marked. Physical Exam Vital Signs Vital Signs Date Time Temp Pulse Resp B/P Pulse Ox O2 Delivery O2 Flow Rate FiO2 01/21/17 09:49 36.1 99 22 128/80 98 Initial VS: Reviewed Head / Eyes: Atraumatic, Normocephalic ENT: Mucous membranes moist, Conjunctiva normal Neck: Supple, Non-tender Respiratory: Breath sounds normal, Clear to auscultation Cardiovascular: Regular rate & rhythm, Heart sounds normal Extremities: Vascular intact, Neuro intact, No swelling, No tenderness Skin: Warm, Dry Neurologic: Alert, Oriented Tenderness/Guarding/Rebound: Positive: Tender diffuse J-tube in place Re-Eval/Medical Decision Med Decision/Clinical Course 76-year-old female with jejunal feeding tube placed several weeks ago status post duodenal stricture repair presenting with clogged feeding tube. Attempted to unclog with [employer]. Unsuccessful. Patient is taking liquids and starting on soft solids. Discussed with general surgeon pulmonary function technologist Dr. Patel who recommended discharging home with no further use of J-tube and follow-up with her surgeon on Sunday for possible replacement of J-tube. Patient will continue her current diet as prescribed by her surgeon. Return precautions given. Consultation : Referral / Consult Name: Yg Patel MD Consulted With: Surgeon Call Returned at: 11:48 Note: Case discussed. Dr. Patel advises to have patient come in for an outpatient appointment on Sunday for further evaluation. Counseled Regarding: Diagnosis, Lab results, Need for follow-up, When/why to return to ED Discharge & Departure Primary Impression: Feeding tube blocked Encounter type: subsequent encounter Qualified Code: T85.598D - Other mechanical complication of other gastrointestinal prosthetic devices, implants and grafts, subsequent encounter Disposition: Home Discharge Condition All VS Reviewed: Yes Condition: Stable Additional Instructions: Thank you for entrusting us with your care today. I spoke with the surgeon Dr. Patel and he advised to schedule an appointment on Sunday for further evaluation and potentially have the tube replaced. Return to the Emergency Department for any new or worsening symptoms. I hope you feel better soon, enjoy the beautiful weather! Referrals: Yaya Chavarria MD (PCP) Scribe Attestation Portion of this note were transcribed by Cassandra Sandoval. I, Dr. Klein, personally performed the history, physical exam, and medical decision-making: I reviewed and confirmed the accuracy for the information in the transcribed note. Signed by: kel Baca, 01/21/17 1300 copies to: Yaya Chavarria MD, Ben M MD January 21, 2017 10:21 Cassandra Sandoval January 21, 2017 10:56
== END 2017-01-21 12:20 | disposition home or self-care (01) ==
LOC: SED 09:43
DX: K94.29 Other complications of gastrostomy (principal); Y73.2 Prosthetic and other implants, materials and accessory gastroenterology and urology devices associated with adverse incidents; Y92.9 Unspecified place or not applicable; Y93.9 Activity, unspecified; Y99.9 Unspecified external cause status; F03.90 Unspecified dementia, unspecified severity, without behavioral disturbance, psychotic disturbance, mood disturbance, and anxiety; E11.9 Type 2 diabetes mellitus without complications; I10 Essential (primary) hypertension; E07.9 Disorder of thyroid, unspecified; Z85.038 Personal history of other malignant neoplasm of large intestine; Z85.048 Personal history of other malignant neoplasm of rectum, rectosigmoid junction, and anus; Z98.890 Other specified postprocedural states; Z88.0 Allergy status to penicillin; Z88.2 Allergy status to sulfonamides; Z88.1 Allergy status to other antibiotic agents; Z88.5 Allergy status to narcotic agent; Z88.8 Allergy status to other drugs, medicaments and biological substances